=== PATIENT | female | born 1930 | race Caucasian/White ===

== ENCOUNTER 2016-07-06 12:50 | Emergency (ER) | payer MEDICARE, BC ==
[2016-07-06] MEDS ORDERED: ACETAMINOPHEN 325 MG TABLET PO ONE (14:38)
--- NOTE | 2016-07-06 14:42 | RADIOLOGY REPORT (SQ) ---
EXAM DESCRIPTION: CT CERVICAL SPINE WITHOUT COMPLETED DATE/TIME: 07/06/2016 2:22 pm REASON FOR STUDY: fall COMPARISON: 2016 radiographs. TECHNIQUE: Axial images acquired through the cervical spine without intravenous contrast. Images re viewed with lung, soft tissue and bone windows. Reconstructed coronal and sagittal MPR images review ed. Images stored on PACS. All CT scanners at this facility use dose modulation, iterative reconstruction, and/or weight based d osing when appropriate to reduce radiation dose to as low as reasonably achievable (ALARA). [facility]: Dose Right [facility]: CareDose [facility]: Dose Right [facility]: Teradose 4D [facility]: [employer] RADIATION DOSE: 18.22 mGy. LIMITATIONS: None. FINDINGS: ALIGNMENT: Minimal anterolisthesis at C4-5 and C5-6. This looks degenerative in etiology, related to significant facet disease at these levels. MINERALIZATION: Osteopenic. VERTEBRAL BODIES: No fractures or dislocation. DISCS: Pronounced disc space narrowing with disc osteophyte complex that C6-7. FACETS, LATERAL MASSES, POSTERIOR ELEMENTS: Facet arthropathy, including ankylosis and degenerative f acet overgrowth on the left at C4-5. HARDWARE: None in the spine. VISUALIZED RIBS: No fractures. LUNG APICES AND SOFT TISSUES: No significant or acute findings. OTHER: No other significant finding. IMPRESSION: 1. Cervical spondylosis. Osteopenic. No fracture evident. TECHNICAL DOCUMENTATION: JOB ID: [id number] Quality ID # [id number]: Final reports with documentation of one or more dose reduction techniques (e.g., Au tomated exposure control, adjustment of the mA and/or kV according to patient size, use of iterative reconstruction technique) 2010 [employer]- All Rights Reserved
--- NOTE | 2016-07-06 14:45 | RADIOLOGY REPORT (SQ) ---
EXAM DESCRIPTION: CT HEAD WITHOUT COMPLETED DATE/TIME: 07/06/2016 2:22 pm REASON FOR STUDY: fall, hematoma COMPARISON: CT brain 11/02/2009 TECHNIQUE: Axial images acquired through the brain without intravenous contrast. Images reviewed wi th bone, brain and subdural windows. Images stored on PACS. All CT scanners at this facility use dose modulation, iterative reconstruction, and/or weight based d osing when appropriate to reduce radiation dose to as low as reasonably achievable (ALARA). [facility]: Dose Right [facility]: CareDose [facility]: Dose Right [facility]: Teradose 4D [facility]: [employer] RADIATION DOSE: 64.61 mGy. LIMITATIONS: None. FINDINGS: VENTRICLES: Normal size and contour. CEREBRUM: Age-appropriate bifrontal and biparietal small vessel ischemic change, chronic. No CT evid ence of acute large territory ischemic change, acute intracranial hemorrhage, mass effect, or midline shift. CEREBELLUM: No masses. No hemorrhage. No alteration of density. No evidence for acute infarction. EXTRAAXIAL SPACES: No fluid collections. No masses. ORBITS AND GLOBE: No intra- or extraconal masses. Normal contour of globe without masses. CALVARIUM: No fracture. PARANASAL SINUSES: No fluid or mucosal thickening. SOFT TISSUES: Left frontal scalp hematoma without underlying skull fracture or acute intracranial hem orrhage OTHER: No other significant finding. IMPRESSION: Left frontal scalp hematoma without underlying skull fracture. No acute intracranial changes TECHNICAL DOCUMENTATION: JOB ID: [id number] Quality ID # [id number]: Final reports with documentation of one or more dose reduction techniques (e.g., Au tomated exposure control, adjustment of the mA and/or kV according to patient size, use of iterative reconstruction technique) 2010 [employer]- All Rights Reserved
--- NOTE | 2016-07-06 14:47 | RADIOLOGY REPORT (SQ) ---
EXAM DESCRIPTION: SHOULDER LEFT 2 OR MORE VIEWS COMPLETED DATE/TIME: 07/06/2016 2:28 pm REASON FOR STUDY: fall COMPARISON: None. NUMBER OF VIEWS: Three views. TECHNIQUE: Internal rotation, external rotation, and Y view images acquired of the left shoulder. LIMITATIONS: None. FINDINGS: MINERALIZATION: Normal. BONES: Comminuted impacted fracture of humeral head. Displacement of the greater tuberosity. JOINTS: No dislocation. VISUALIZED LUNGS AND RIBS: No pneumothorax. No rib fracture. SOFT TISSUES: No radiopaque foreign body. OTHER: No other significant finding. IMPRESSION: COMMINUTED IMPACTED FRACTURE OF THE HUMERAL HEAD. TECHNICAL DOCUMENTATION: JOB ID: [id number] [employer]- All Rights Reserved
[2016-07-06] MEDS ORDERED: MORPHINE SULFATE 10 MG/ML INJ IV ONE ×2 (15:12→18:14)
--- NOTE | 2016-07-06 16:34 | ER Document Report ---
ED Fall - General Chief Complaint: Fall Stated Complaint: FALL LEFT SHOULDER PAIN Time Seen by Provider: 07/06/16 13:34 Notes: Patient is an 86-year-old female presents emergency department via EMS [place]. Patient states that she was walking when she flipped and fell hitting her left part of her head and her eyebrow and her left shoulder. Patient states that her most severe pain is in her left shoulder. Patient is on a daily baby aspirin but no other blood thinners. Was at home by herself TRAVEL OUTSIDE OF THE [place] IN LAST 30 DAYS: No - Related data Allergies/Adverse Reactions: lisinopril [Lisinopril] Allergy (Verified 07/06/16 16:01) naproxen sodium [From Aleve] Adverse Reaction (Verified 07/06/16 16:01) Chest pain Past Medical History - Social History Smoking Status: Never Smoker Chew tobacco use (# tins/day): No Frequency of alcohol use: None Family History: Reviewed & Not Pertinent - Past Medical History Cardiac Medical History: Reports: Hx Hypertension Pulmonary Medical History: Reports: Hx Asthma Endocrine Medical History: Reports: Hx Diabetes Mellitus Type 2 - Immunizations Hx Diphtheria, Pertussis, Tetanus Vaccination: - unk Review of Systems - Review of Systems Constitutional: No symptoms reported Cardiovascular: No symptoms reported Respiratory: No symptoms reported Musculoskeletal: See HPI Neurological/Psychological: See HPI Physical Exam - Vital signs Vitals: Temp Pulse Resp BP Pulse Ox 98.2 F 80 20 168/89 H 100 07/06/16 13:59 07/06/16 13:59 07/06/16 13:59 07/06/16 13:59 07/06/16 13:59 - Notes Notes: PHYSICAL EXAM GENERAL: Alert, interacts well. HEAD: Normocephalic, patient with a hematoma over her left eyebrow. No palpable deformities, step-offs. Not tender to palpation. No evidence of raccoon eyes or periorbital ecchymosis, swelling EYES: Pupils equal, round, and reactive to light. Extraocular movements intact. ENT: Oral mucosa moist, tongue midline. NECK: Full range of motion. Supple. Trachea midline. LUNGS: Clear to auscultation bilaterally, no wheezes, rales, or rhonchi. No respiratory distress. HEART: Regular rate and rhythm. No murmurs, gallops, or rubs. ABDOMEN: Soft, nondistended, nontender. No guarding, rebound, or rigidity.. Bowel sounds present in all 4 quadrants. EXTREMITIES: Moves all 4 extremities spontaneously. No edema, radial and dorsalis pedis pulses 2/4 bilaterally. No cyanosis. NEUROLOGICAL: Alert and oriented x4. Normal speech. PSYCH: Normal affect, normal mood. SKIN: Warm, dry, normal turgor. No rashes or lesions noted. Course - Re-evaluation Re-evalutation: 07/06/16 18:57 Patient is an 86-year-old female who is hemodynamic stable, no acute distress and afebrile. No evidence of hemorrhage or injury noted on CT of the head or neck. Patient does have a left humeral head comminuted fracture. Patient placed in shoulder immobilizer. Discussed with her follow-up was indicated for orthopedics. Patient expresses understanding. Is going home with her son - Vital Signs Vital signs: Temp Pulse Resp BP Pulse Ox 98.5 F 71 18 159/64 H 96 07/06/16 18:40 07/06/16 18:40 07/06/16 18:40 07/06/16 18:40 07/06/16 18:40 - Diagnostic Test Radiology reviewed: Image reviewed, Reports reviewed Discharge - Discharge Clinical Impression: Fall, Closed head injury, Comminuted left humeral fracture Condition: Good Disposition: HOME, SELF-CARE Instructions: Fracture Proximal Humerus, Use of Iung-Rhq-Gztawmb Ibuprofen ([facility] ) Prescriptions: Oxycodone HCl/Acetaminophen [Percocet 5-325 mg Tablet] 1 tab PO Q6HP PRN #25 tablet PRN Reason: Referrals: AURELIA CASAREZ MD [Primary Care Provider] - Follow up tomorrow DAVID JUAREZ MD [ACTIVE STAFF] - Follow up tomorrow
[2016-07-06 18:41] VITALS: BP 159/64
== END 2016-07-06 18:42 | disposition home or self-care (01) ==
LOC: ER 12:50
DX: S42.292A Other displaced fracture of upper end of left humerus, initial encounter for closed fracture (principal); S00.12XA Contusion of left eyelid and periocular area, initial encounter; W01.0XXA Fall on same level from slipping, tripping and stumbling without subsequent striking against object, initial encounter; Y92.59 Other trade areas as the place of occurrence of the external cause; M25.512 Pain in left shoulder; I10 Essential (primary) hypertension; J45.909 Unspecified asthma, uncomplicated; E11.9 Type 2 diabetes mellitus without complications; Z88.8 Allergy status to other drugs, medicaments and biological substances; Z79.82 Long term (current) use of aspirin
CPT/HCPCS: 96376; 99284; 96374; 73030; 70450; 72125; L3650; A9270; J2270

== ENCOUNTER 2016-08-08 19:00 | Emergency (ER) | payer MEDICARE, BC ==
[2016-08-08] MEDS ORDERED: MORPHINE SULFATE 10 MG/ML INJ IV ONE ×2 (19:18→21:50)
--- NOTE | 2016-08-08 19:19 | ER Document Report ---
ED Medical Screen (RME) - General Chief Complaint: Fall Stated Complaint: FALL HIP PAIN Time Seen by Provider: 08/08/16 19:18 Mode of Arrival: Stretcher Information source: Patient TRAVEL OUTSIDE OF THE [place] IN LAST 30 DAYS: No - HPI Patient complains to provider of: Fall at home, left hip pain Onset: Just prior to arrival Onset/Duration: Sudden Quality of pain: Achy Severity: Severe Pain Level: 4 Notes: 08/08/16 19:19 Patient is an 86-year-old female who was brought to the emergency room by EMS after trip and fall at home causing pain to her left hip, she already has a fracture in her left upper extremity, and bruising to her left face from a fall that she sustained a few days ago, she is wearing a sling on the left upper extremity, the left lower extremity is externally rotated and shortened, she was unable to stand up after the fall 08/08/16 19:20 Patient is being followed by Dr. Farris, orthopedics for her upper extremity injury, and feels Lowell Sanz MD for primary care - Related Data Allergies/Adverse Reactions: lisinopril [Lisinopril] Allergy (Verified 07/06/16 16:01) naproxen sodium [From Aleve] Adverse Reaction (Verified 07/06/16 16:01) Chest pain Past Medical History - Social History Chew tobacco use (# tins/day): No Frequency of alcohol use: None Drug Abuse: None - Past Medical History Cardiac Medical History: Reports: Hx Hypertension Pulmonary Medical History: Reports: Hx Asthma Endocrine Medical History: Reports: Hx Diabetes Mellitus Type 2 - Immunizations Hx Diphtheria, Pertussis, Tetanus Vaccination: - unk Physical Exam - Vital signs Vitals: Temp Pulse Resp BP Pulse Ox 99.0 F 83 17 176/61 H 94 08/08/16 19:04 08/08/16 19:04 08/08/16 19:04 08/08/16 19:04 08/08/16 19:04 Course - Vital Signs Vital signs: Temp Pulse Resp BP Pulse Ox 99.0 F 83 17 176/61 H 94 08/08/16 19:04 08/08/16 19:04 08/08/16 19:04 08/08/16 19:04 08/08/16 19:04
[2016-08-08] MEDS ORDERED: ONDANSETRON HCL INJ/PF 4 MG/2 ML SDV IV ONE (19:29)
--- NOTE | 2016-08-08 19:31 | ER Document Report ---
ED Fall - General Chief Complaint: Fall Stated Complaint: FALL HIP PAIN Time Seen by Provider: 08/08/16 19:19 Mode of Arrival: Stretcher Information source: Patient Notes: Patient is an 86-year-old female that comes emergency department for chief complaint of fall, she states that she grabbed onto a chair which moved causing her to fall forward and landed on her left hip and side. She denies head injury , she denies loss of consciousness, she denies other locations of pain other than her left hip and also in her left arm where she had a recent humeral head fracture and is currently wearing a sling. She denies blood thinners other than baby aspirin daily, she denies focal numbness or weakness, incontinence, chest pain, abdominal pain, back pain. She sees Dr. Koenig for orthopedic follow -up in [place]. H asthma and DM II. TRAVEL OUTSIDE OF THE [place] IN LAST 30 DAYS: No - Related data Allergies/Adverse Reactions: ciprofloxacin [From Cipro] Allergy (Verified 08/08/16 21:23) lisinopril [Lisinopril] Allergy (Verified 07/06/16 16:01) naproxen [From Aleve] Allergy (Verified 08/08/16 21:23) Sulfa (Sulfonamide Antibiotics) Allergy (Verified 08/08/16 21:23) naproxen sodium [From Aleve] Adverse Reaction (Verified 07/06/16 16:01) Chest pain Home Medications: Current Home Medications Cranberry [Cranberry 1000 mg Capsule] 1,000 mg PO DAILY 08/08/16 [History] Losartan Potassium 50 mg PO DAILY 08/08/16 [History] Metoprolol Succinate [Toprol Xl] 100 mg PO DAILY 08/08/16 [History] Past Medical History - General Information source: Patient - Social History Smoking Status: Never Smoker Chew tobacco use (# tins/day): No Frequency of alcohol use: None Drug Abuse: None Lives with: Alone Family History: Reviewed & Not Pertinent - Past Medical History Cardiac Medical History: Reports: Hx Hypertension Pulmonary Medical History: Reports: Hx Asthma Endocrine Medical History: Reports: Hx Diabetes Mellitus Type 2 - Immunizations Hx Diphtheria, Pertussis, Tetanus Vaccination: Yes - unk Review of Systems - Review of Systems Constitutional: No symptoms reported EENT: No symptoms reported Cardiovascular: No symptoms reported Respiratory: No symptoms reported Gastrointestinal: No symptoms reported Genitourinary: No symptoms reported Female Genitourinary: No symptoms reported Musculoskeletal: See HPI Skin: See HPI Hematologic/Lymphatic: No symptoms reported Neurological/Psychological: No symptoms reported Physical Exam - Vital signs Vitals: Temp Pulse Resp BP Pulse Ox 99.0 F 83 17 176/61 H 94 08/08/16 19:04 08/08/16 19:04 08/08/16 19:04 08/08/16 19:04 08/08/16 19:04 Interpretation: Normal - General General appearance: Anxious In distress: Mild - patient appears to be in some pain, but she is alert and responsive - HEENT Head: Normocephalic, Atraumatic Eyes: Normal Pupils: PERRL - Respiratory Respiratory status: No respiratory distress Chest status: Nontender Breath sounds: Normal. No: Decreased air movement, Wheezing Chest palpation: Normal - Cardiovascular Rhythm: Regular. No: Tachycardia Heart sounds: Normal auscultation, S1 appreciated, S2 appreciated Murmur: No - Abdominal Inspection: Normal. No: Wounds Distension: No distension Bowel sounds: Normal Tenderness: Nontender. No: Tender, Guarding Organomegaly: No organomegaly - Back Back: Normal, Nontender. No: Tender, Vertebra tenderness - Extremities General upper extremity: Normal inspection, Nontender, Normal ROM, Normal strength General lower extremity: Other - Leg externally rotated. Painful left groin and femoral area. Knee exam, ankle exam, and foot exam are unremarkable. Normal distal neurovascular exam. 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 No evidence of head injury, no contusions or evidence of trauma otherwise. Patient is alert and well-appearing otherwise. X-ray confirms comminuted fracture of the left intertrochanteric region of the left femur. Patient given pain medicine, performing preop workup. Discovered that we have no orthopedic adapted physical education aide until 08/12/2016. Discussed with family and patient, they state they would prefer to be transferred to [facility] because of family there. Mild leukocytosis, no fever, tachycardia or hypotension. Chemistry generally unremarkable. Urine shows positive nitrites and a few white blood cells. Patient denying flank or abdominal pain, denying dysuria. Chest x-ray and EKG showed no acute abnormalities. Patient given a dose of Rocephin, urine culture placed. Discussed with Dr. Bergeron. 08/09/16 23:20 Dr. Sherman, orthopedic surgery, he states that they will accept the patient. 08/09/16 04:57 Patient complaining of pain again, vital signs unremarkable, giving morphine. Bed accepted, still pending transport. - Vital Signs Vital signs: Temp Pulse Resp BP Pulse Ox 98.7 F 83 15 130/51 H 90 L 08/09/16 02:23 08/08/16 19:04 08/09/16 02:01 08/09/16 02:01 08/09/16 02:01 - Laboratory Result Diagrams: 08/08/16 21:56 08/08/16 21:56 Laboratory results interpreted by me: 08/08/16 08/08/16 08/08/16 21:56 21:56 21:56 WBC 11.4 H MCV 99 H Absolute Neutrophils 8.6 H Sodium 135.9 L Glucose 180 H AST 46 H Alkaline Phosphatase 159 H Albumin 3.3 L Urine Nitrite POSITIVE H Ur Leukocyte Esterase TRACE H Urine Ascorbic Acid 40 H Discharge - Discharge Clinical Impression: Intertrochanteric fracture Qualifiers: Encounter type: initial encounter Fracture type: closed Fracture alignment: displaced Laterality: left Qualified Code(s): S72.142A - Displaced intertrochanteric fracture of left femur, initial encounter for closed fracture Urinary tract infection Qualifiers: Urinary tract infection type: site unspecified Hematuria presence: without hematuria Qualified Code(s): N39.0 - Urinary tract infection, site not specified Fall Qualifiers: Encounter type: initial encounter Qualified Code(s): W19.XXXA - Unspecified fall, initial encounter Condition: Stable Disposition: [facility]
--- NOTE | 2016-08-08 20:51 | RADIOLOGY REPORT (SQ) ---
EXAM DESCRIPTION: HIP LEFT AP/LATERAL COMPLETED DATE/TIME: 08/08/2016 7:46 pm REASON FOR STUDY: fall COMPARISON: None. NUMBER OF VIEWS: Two views. TECHNIQUE: AP pelvis and additional frog-leg view of the left hip. LIMITATIONS: None. FINDINGS: MINERALIZATION: Osteopenia. LEFT HIP: Comminuted fracture intertrochanteric fracture of the left femur. Small fragment of the gr eater trochanter noted adjacent to the femoral shaft. There is superior slight medial displacement o f the femoral shaft relation to the femoral head. No other fractures are identified. RIGHT HIP: No fracture or dislocation. No worrisome bone lesions. PUBIS AND ISCHIUM: No fracture. PELVIS: No fracture. SACRUM: No fracture or dislocation. No worrisome bone lesions. LOWER LUMBAR SPINE: No fracture or dislocation. No worrisome bone lesions. Spondylosis. SOFT TISSUES: Extensive vascular calcifications noted throughout the pelvis and lower extremities. OTHER: No other significant finding. IMPRESSION: Comminuted intratrochanteric fracture of the left femur with superior and medial displac ement of the femoral shaft relation to the femoral head. A small fragment of the greater trochanter is noted adjacent to the the shaft. TECHNICAL DOCUMENTATION: JOB ID: [id number] [employer]- All Rights Reserved
--- NOTE | 2016-08-08 20:54 | RADIOLOGY REPORT (SQ) ---
EXAM DESCRIPTION: CHEST SINGLE VIEW COMPLETED DATE/TIME: 08/08/2016 7:46 pm REASON FOR STUDY: FALL COMPARISON: None. EXAM PARAMETERS: NUMBER OF VIEWS: One view. TECHNIQUE: Single frontal radiographic view of the chest acquired. RADIATION DOSE: NA LIMITATIONS: None. FINDINGS: LUNGS AND PLEURA: No opacities, masses or pneumothorax. No pleural effusion. MEDIASTINUM AND HILAR STRUCTURES: No masses. Contour normal. Arch calcifications. HEART AND VASCULAR STRUCTURES: Heart borderline enlarged. Normal vasculature. BONES: Mild scoliosis of the thoracic spine. There appears to be at comminuted fracture involving th e left humeral head of appears to have been present on 07/06/2016. HARDWARE: None in the chest. OTHER: No other significant finding. IMPRESSION: Comminuted fracture of the left humeral at was present on prior study from 07/06/2016. N o other acute osseous abnormality identified. No acute cardiopulmonary disease. Cardiac size is bor derline enlarged. TECHNICAL DOCUMENTATION: JOB ID: [id number]
[2016-08-08 22:06] LABS: ABSOLUTE BASOPHILS # (AUTO) 0.1 10^3/uL (0.0-0.2); ABSOLUTE EOSINOPHILS # (AUTO) 0.2 10^3/uL (0.0-0.6); ABSOLUTE LYMPHOCYTES (AUTO) 1.7 10^3/uL (0.5-4.7); ABSOLUTE MONOCYTES (AUTO) 0.9 10^3/uL (0.1-1.4); ABSOLUTE NEUT (AUTO) 8.6 10^3/uL (1.7-8.2); BASOPHILS % (AUTO) 0.8 % (0-2); EOSINOPHILS % (AUTO) 1.4 % (0-6); HEMATOCRIT 39.5 % (36.0-47.0); HEMOGLOBIN 12.9 g/dL (12.0-15.5); HGB HCT DIFFERENCE -0.8; LYMPHOCYTES % (AUTO) 14.5 % (13-45); MEAN CORPUSCULAR HEMOGLOBIN 32.5 pg (27.0-33.4); MEAN CORPUSCULAR HGB CONC 32.8 g/dL (32.0-36.0); MEAN CORPUSCULAR VOLUME 99 fl (80-97); MONOCYTES % (AUTO) 7.9 % (3-13); RED BLOOD COUNT 3.99 10^6/uL (3.72-5.28); RED CELL DISTRIBUTION WIDTH 13.3 % (11.5-14.0); SEGMENTED NEUTROPHILS % (AUTO) 75.4 % (42-78); WHITE BLOOD COUNT 11.4 10^3/uL (4.0-10.5)
[2016-08-08 22:12] LABS: AMORPHOUS SEDIMENT,URINE TRACE /HPF; APPEARANCE,URINE CLOUDY; BILIRUBIN,URINE NEGATIVE (NEGATIVE); GLUCOSE, URINE NEGATIVE (NEGATIVE); KETONES,URINE NEGATIVE (NEGATIVE); LEUKOCYTE ESTERASE,URINE TRACE (NEGATIVE); NITRITE,URINE POSITIVE (NEGATIVE); PROTEIN,URINE NEGATIVE (NEGATIVE); URINE SPECIFIC GRAVITY 1.013; UROBILINOGEN,URINE NEGATIVE mg/dL (<2.0)
[2016-08-08 22:13] LABS: PARTIAL THROMBOPLASTIN TIME 30.9 SEC (23.5-35.8)
[2016-08-08 22:27] LABS: ALANINE AMINOTRANSFERASE 52 U/L (9-52); ALBUMIN 3.3 g/dL (3.5-5.0); ALKALINE PHOSPHATASE 159 U/L (38-126); ANION GAP 10 (5-19); ASPARTATE AMINO TRANSFERASE 46 U/L (14-36); BILIRUBIN,DIRECT 0.3 mg/dL (0.0-0.4); BILIRUBIN,TOTAL 0.5 mg/dL (0.2-1.3); BLOOD UREA NITROGEN 16 mg/dL (7-20); CALCIUM 9.1 mg/dL (8.4-10.2); CARBON DIOXIDE 26 mmol/L (22-30); CHLORIDE 100 mmol/L (98-107); CREATININE RESULT 0.54 mg/dL (0.52-1.25); GLUCOSE 180 mg/dL (75-110); POTASSIUM 4.5 mmol/L (3.6-5.0); SODIUM 135.9 mmol/L (137-145); TOTAL PROTEIN 6.5 g/dL (6.3-8.2)
[2016-08-08] MEDS ORDERED: CEFTRIAXONE 1 GM/D5W RTU 50 ML IV ONE (23:44)
[2016-08-08] MEDS ORDERED: METFORMIN HCL 500 MG TABLET PO ONE (23:58)
[2016-08-09] MEDS ORDERED: ONDANSETRON HCL INJ/PF 4 MG/2 ML SDV IV ONE (04:48)
[2016-08-09] MEDS ORDERED: MORPHINE SULFATE 10 MG/ML INJ IV ONE (04:48)
[2016-08-09 08:27] VITALS: BP 102/83
--- NOTE | 2016-08-09 10:27 | EKG REPORT ---
SEVERITY:- ABNORMAL ECG - SINUS RHYTHM FIRST DEGREE AV BLOCK LEFT ANTERIOR FASCICULAR BLOCK OLD ANTEROSPETAL [place] : Confirmed by: Daniel Dewitt MD 09-Aug-2016 10:27:03
== END 2016-08-09 08:05 | disposition short-term general hospital (02) ==
LOC: ER 19:00
DX: S72.142A Displaced intertrochanteric fracture of left femur, initial encounter for closed fracture (principal); N39.0 Urinary tract infection, site not specified; W01.0XXA Fall on same level from slipping, tripping and stumbling without subsequent striking against object, initial encounter; Y92.009 Unspecified place in unspecified non-institutional (private) residence as the place of occurrence of the external cause; E11.9 Type 2 diabetes mellitus without complications; I10 Essential (primary) hypertension; Z88.2 Allergy status to sulfonamides; Z88.3 Allergy status to other anti-infective agents
CPT/HCPCS: 93005; 96376; 99285; 51702; 96375; 96365; 36415; 87086; 85025; 85610; 85730; 87088; 80053; 81001; 87186; 71010; 73502; 93010; J2270 ×2; J2405 ×2; A9270; J0696

== ENCOUNTER → 2017-09-07 | Outpatient (CLI) | payer MEDICARE, BC ==
[2017-09-07 08:52] LABS: ABSOLUTE BASOPHILS # (AUTO) 0.1 10^3/uL (0.0-0.2); ABSOLUTE EOSINOPHILS # (AUTO) 0.4 10^3/uL (0.0-0.6); ABSOLUTE LYMPHOCYTES (AUTO) 2.1 10^3/uL (0.5-4.7); ABSOLUTE NEUT (AUTO) 4.4 10^3/uL (1.7-8.2); BASOPHILS % (AUTO) 1.3 % (0-2); EOSINOPHILS % (AUTO) 4.9 % (0-6); HEMATOCRIT 41.5 % (36.0-47.0); LYMPHOCYTES % (AUTO) 26.1 % (13-45); MEAN CORPUSCULAR HEMOGLOBIN 31.9 pg (27.0-33.4); MEAN CORPUSCULAR HGB CONC 33.8 g/dL (32.0-36.0); MEAN CORPUSCULAR VOLUME 94 fl (80-97); MONOCYTES % (AUTO) 12.2 % (3-13); PLATELET COUNT 257 10^3/uL (150-450); RED CELL DISTRIBUTION WIDTH 14.3 % (11.5-14.0); SEGMENTED NEUTROPHILS % (AUTO) 55.5 % (42-78); TOTAL CELLS COUNTED % (AUTO) 100 %; WHITE BLOOD COUNT 7.9 10^3/uL (4.0-10.5)
[2017-09-07 09:23] LABS: ALANINE AMINOTRANSFERASE 36 U/L (9-52); ALBUMIN 3.4 g/dL (3.5-5.0); ALKALINE PHOSPHATASE 166 U/L (38-126); ANION GAP 13 (5-19); ASPARTATE AMINO TRANSFERASE 58 U/L (14-36); BILIRUBIN,DIRECT 0.4 mg/dL (0.0-0.4); BILIRUBIN,TOTAL 0.8 mg/dL (0.2-1.3); BLOOD UREA NITROGEN 16 mg/dL (7-20); CALCIUM 9.4 mg/dL (8.4-10.2); CARBON DIOXIDE 30 mmol/L (22-30); CHLORIDE 96 mmol/L (98-107); GLUCOSE 145 mg/dL (75-110); POTASSIUM 3.9 mmol/L (3.6-5.0); SODIUM 138.7 mmol/L (137-145); TOTAL PROTEIN 7.5 g/dL (6.3-8.2); TRIGLYCERIDES 100 mg/dL (<150)
[2017-09-07 09:33] LABS: DIRECT LDL 67 mg/dL (<100)
== END ==
LOC: LCAL 07:45
PROVIDERS: ATTEND Internal Medicine
DX: E11.9 Type 2 diabetes mellitus without complications (principal); I10 Essential (primary) hypertension; E78.5 Hyperlipidemia, unspecified; R53.83 Other fatigue
CPT/HCPCS: 36415; 80053; 80061; 83036; 83735; 84443; 85025

== ENCOUNTER 2018-02-17 12:25 | Inpatient (IN) | payer MEDICARE, BC ==
--- NOTE | 2018-02-17 12:50 | ER Document Report ---
Addendum entered and electronically signed by DAVID ANDERSON PA-C 02/17/18 13:50: Discharge - Discharge Clinical Impression: Acute UTI (urinary tract infection) Condition: Stable Disposition: ADMITTED INPATIENT Referrals: AURELIA CASAREZ MD [Primary Care Provider] - Follow up as needed Original Note: ED General - General Chief Complaint: Fever Stated Complaint: DIARRHEA Time Seen by Provider: 02/17/18 12:32 TRAVEL OUTSIDE OF THE [place] IN LAST 30 DAYS: No - HPI Notes: Patient is an 87-year-old female with a history of hypertension, chronic cough, asthma, type 2 diabetes who presents to the emergency department by EMS from the [facility] for report of fever and diarrhea. Pt had a reported 104 temp from her facility and was given tylenol 650mg. She has been afebrile thereafter. Patient states that she has not felt febrile and states that she has been having soft stool but no watery diarrhea. Patient states that her urinary behavior bothers her the most she has been going more often with some burning associated. Patient states that she does continue to have a chronic cough that remains relatively unchanged. She has been eating and drinking without difficulty. She does not have any other associated pains or discomfort. Denies any headache, fever, neck pain, changes in vision/speech/mentation/hearing, URI, sore throat, chest pain, palpitations, syncope, shortness of breath, wheeze, dyspnea, abdominal pain, nausea/vomiting, urinary retention, back pain, or rash. - Related Data Allergies/Adverse Reactions: ciprofloxacin [From Cipro] Allergy (Verified 08/08/16 21:23) lisinopril [Lisinopril] Allergy (Verified 07/06/16 16:01) naproxen [From Aleve] Allergy (Verified 08/08/16 21:23) Sulfa (Sulfonamide Antibiotics) Allergy (Verified 08/08/16 21:23) naproxen sodium [From Aleve] Adverse Reaction (Verified 07/06/16 16:01) Chest pain Past Medical History - Social History Smoking Status: Unknown if Ever Smoked Family History: Reviewed & Not Pertinent Patient has suicidal ideation: No Patient has homicidal ideation: No - Past Medical History Cardiac Medical History: Reports: Hx Hypercholesterolemia, Hx Hypertension Pulmonary Medical History: Reports: Hx Asthma Endocrine Medical History: Reports: Hx Diabetes Mellitus Type 2 Renal/ Medical History: Denies: Hx Peritoneal Dialysis GI Medical History: Reports: Hx Gastroesophageal Reflux Disease Musculoskeletal Medical History: Reports Hx Arthritis - OA - Immunizations Hx Diphtheria, Pertussis, Tetanus Vaccination: Yes - unk Review of Systems - Review of Systems -: Yes All other systems reviewed and negative Physical Exam - Vital signs Vitals: Pulse Resp Pulse Ox 93 20 98 02/17/18 12:32 02/17/18 12:32 02/17/18 12:32 - Notes Notes: PHYSICAL EXAMINATION: GENERAL: Well-appearing, well-nourished and in no acute distress. A&Ox4. Answers questions appropriately. HEAD: Atraumatic, normocephalic. Non-tender. EYES: Pupils equal round and reactive to light, extraocular movements intact, sclera anicteric, conjunctiva are normal. ENT: Nares patent and without discharge. oropharynx clear without exudates. No tonsilar hypertrophy or erythema. Moist mucous membranes. NECK: Normal range of motion, supple without lymphadenopathy. No rigidity/meningismus. No midline tenderness. LUNGS: Some diminishment b/l base. No wheezes rales or rhonchi. No retractions. HEART: Regular rate and rhythm without murmurs, rubs, gallops. ABDOMEN: Soft, nontender, nondistended abdomen. No guarding, no rebound. Normal bowel sounds present. No CVA tenderness bilaterally. Musculoskeletal: Ext's b/l: FROM to passive/active. Strength 5+/5. No deficits noted. No bony tenderness of extremities. Extremities: No cyanosis, clubbing, or edema b/l. Peripheral pulses 2+. Capillary refill less than 2 seconds. NEUROLOGICAL: NIH 0. GCS 15. Cranial nerves grossly intact. Normal speech. Normal sensory, motor exams. Reflexes 2+ b/l. MARLENE's negative. Pronator drift negative. PSYCH: Normal mood, normal affect. SKIN: Warm, Dry, normal turgor, no rashes or lesions noted. Course - Re-evaluation Re-evalutation: 02/17/18 13:44 Patient is currently an afebrile, well-hydrated, 87-year-old female who presents to the emergency department with a UTI with an elevated lactic acid at 3.5 and leukocytosis at 11.1. Vitals are currently acceptable without any significant tachycardia, tachypnea, or hypoxia. PE is otherwise unremarkable and is alert and oriented. Patient is able to tolerate p.o. without difficulty at this time. See lab results. Patient was given a liter bolus as well as Rocephin IV. Call was placed our hospitalist, Dr. Griffin, who accepted patient for admission to the medical floor. Patient is a DNR. Patient is in agreement with plan. - Vital Signs Vital signs: Temp Pulse Resp BP Pulse Ox 93 20 98 02/17/18 12:32 02/17/18 12:32 02/17/18 12:32 - Laboratory Result Diagrams: 02/17/18 12:35 02/17/18 12:35 Laboratory results interpreted by me: 02/17/18 02/17/18 02/17/18 12:35 12:35 13:10 WBC 11.1 H RDW 15.0 H Lymphocytes % 7.1 L Monocytes % 17.9 H Absolute Monocytes 2.0 H Sodium 132.1 L Chloride 97 L Glucose 223 H Lactic Acid Total Bilirubin 1.6 H AST 81 H Alkaline Phosphatase 188 H Albumin 3.4 L Ur Leukocyte Esterase TRACE H Urine Ascorbic Acid 40 H 02/17/18 13:14 WBC RDW Lymphocytes % Monocytes % Absolute Monocytes Sodium Chloride Glucose Lactic Acid 3.5 H Total Bilirubin AST Alkaline Phosphatase Albumin Ur Leukocyte Esterase Urine Ascorbic Acid Critical Care Note - Critical Care Note Total time excluding time spent on procedures (mins): 35 Discharge - Discharge Clinical Impression: Acute UTI (urinary tract infection) Sepsis Qualifiers: Sepsis type: sepsis due to unspecified organism Qualified Code(s): A41.9 - Sepsis, unspecified organism Condition: Stable Disposition: ADMITTED INPATIENT Admitting Provider: Hospitalist - Dr. Griffin Unit Admitted: Medical Floor Referrals: AURELIA CASAREZ MD [Primary Care Provider] - Follow up as needed
[2018-02-17 13:02] LABS: ABSOLUTE BASOPHILS # (AUTO) 0.1 10^3/uL (0.0-0.2); ABSOLUTE LYMPHOCYTES (AUTO) 0.8 10^3/uL (0.5-4.7); ABSOLUTE NEUT (AUTO) 8.2 10^3/uL (1.7-8.2); BASOPHILS % (AUTO) 0.8 % (0-2); EOSINOPHILS % (AUTO) 0.1 % (0-6); HEMATOCRIT 40.5 % (36.0-47.0); HEMOGLOBIN 13.8 g/dL (12.0-15.5); LYMPHOCYTES % (AUTO) 7.1 % (13-45); MEAN CORPUSCULAR HEMOGLOBIN 32.9 pg (27.0-33.4); MEAN CORPUSCULAR HGB CONC 34.1 g/dL (32.0-36.0); MEAN CORPUSCULAR VOLUME 97 fl (80-97); MONOCYTES % (AUTO) 17.9 % (3-13); PLATELET COUNT 207 10^3/uL (150-450); RED BLOOD COUNT 4.18 10^6/uL (3.72-5.28); SEGMENTED NEUTROPHILS % (AUTO) 74.1 % (42-78); TOTAL CELLS COUNTED % (AUTO) 100 %; WHITE BLOOD COUNT 11.1 10^3/uL (4.0-10.5)
[2018-02-17 13:08] LABS: ALANINE AMINOTRANSFERASE 46 U/L (9-52); ALBUMIN 3.4 g/dL (3.5-5.0); ALKALINE PHOSPHATASE 188 U/L (38-126); ANION GAP 9 (5-19); ASPARTATE AMINO TRANSFERASE 81 U/L (14-36); BILIRUBIN,DIRECT 0.4 mg/dL (0.0-0.4); BILIRUBIN,TOTAL 1.6 mg/dL (0.2-1.3); BLOOD UREA NITROGEN 17 mg/dL (7-20); CALCIUM 9.1 mg/dL (8.4-10.2); CARBON DIOXIDE 26 mmol/L (22-30); CHLORIDE 97 mmol/L (98-107); GLUCOSE 223 mg/dL (75-110); POTASSIUM 4.1 mmol/L (3.6-5.0); SODIUM 132.1 mmol/L (137-145); TOTAL PROTEIN 7.2 g/dL (6.3-8.2)
[2018-02-17] MEDS ORDERED: CEFTRIAXONE 1 GM/D5W RTU 1 GM/50 ML RTUPB IV ONE (13:16)
[2018-02-17] MEDS: NORMAL SALINE 1000 ML 1,000 ML IV PRN ×3 (13:25→18:07)
[2018-02-17 13:32] LABS: APPEARANCE,URINE CLOUDY; BILIRUBIN,URINE NEGATIVE (NEGATIVE); COLOR,URINE AMBER; GLUCOSE, URINE NEGATIVE (NEGATIVE); KETONES,URINE NEGATIVE (NEGATIVE); LEUKOCYTE ESTERASE,URINE TRACE (NEGATIVE); NITRITE,URINE NEGATIVE (NEGATIVE); PROTEIN,URINE NEGATIVE (NEGATIVE); URINE SPECIFIC GRAVITY 1.015; UROBILINOGEN,URINE NEGATIVE mg/dL (<2.0)
--- NOTE | 2018-02-17 13:35 | RADIOLOGY REPORT (SQ) ---
EXAM DESCRIPTION: CHEST SINGLE VIEW COMPLETED DATE/TIME: 02/17/2018 1:20 pm REASON FOR STUDY: fever COMPARISON: 08/08/2016 and earlier EXAM PARAMETERS: NUMBER OF VIEWS: One view. TECHNIQUE: Single frontal radiographic view of the chest acquired. RADIATION DOSE: NA LIMITATIONS: None. FINDINGS: LUNGS AND PLEURA: No opacities, masses or pneumothorax. No pleural effusion. MEDIASTINUM AND HILAR STRUCTURES: No masses. Contour normal. HEART AND VASCULAR STRUCTURES: Heart normal in size. Normal vasculature. BONES: Chronic deformity of the left humeral head. No acute osseous abnormality. HARDWARE: None in the chest. OTHER: No other significant finding. IMPRESSION: NO ACUTE RADIOGRAPHIC FINDING IN THE CHEST. TECHNICAL DOCUMENTATION: JOB ID: [id number]- All Rights Reserved Reading location - IP/workstation name: [email or web address]
[2018-02-17] MEDS ORDERED: ACETAMINOPHEN 325 MG TABLET PO PRN (14:59)
[2018-02-17] MEDS ORDERED: ONDANSETRON HCL INJ/PF 4 MG/2 ML SDV IV PRN (14:59)
[2018-02-17] MEDS ORDERED: TEMAZEPAM 7.5 MG CAPSULE PO PRN (14:59)
[2018-02-17] MEDS ORDERED: IPRATROPIUM/ALBUTEROL 0.5-2.5 MG/3 ML AMPUL NEB PRN (14:59)
[2018-02-17] MEDS ORDERED: GLUCAGON,HUMAN RECOMB 1 MG INJ IM PRN (15:15)
[2018-02-17] MEDS ORDERED: DEXTROSE 40% GEL 15 GM TUBE PO PRN ×2 (15:15)
[2018-02-17] MEDS ORDERED: DEXTROSE 50%-WATER 25 GM/50 ML DISP.SYRIN IV PRN ×2 (15:15)
--- NOTE | 2018-02-17 15:17 | PDOC H&P ---
History of Present Illness Admission Date/PCP: 02/17/18 14:12 AURELIA CASAREZ MD Patient complains of: Fever History of Present Illness: KAYLENE BENDER is a 87 year old female with history of dementia diabetes mellitus hypertension asthma referred from the assisted living with complaints of fever and loose stools. Fever reported as 104 at assisted living she was given Tylenol 650 mg she is afebrile in the emergency room. Patient is unable to give much history. Further information obtained from the ER physician's notes he is no complaints of shortness of breath no wheezing no cough no cold no chills no sweating no abdominal pain no nausea no vomiting no rash. I went to talk to the patient because of think her dementia she is unable to give much information. Past Medical History Cardiac Medical History: Reports: Hyperlipidema, Hypertension Pulmonary Medical History: Reports: Asthma Endocrine Medical History: Reports: Diabetes Mellitus Type 2 GI Medical History: Reports: Gastroesophageal Reflux Disease Musculoskeltal Medical History: Reports: Arthritis - OA Past Surgical History Past Surgical History: Reports: Orthopedic Surgery Social History Lives with: Other - Assisted living Smoking Status: Unknown if Ever Smoked Frequency of Alcohol Use: None Hx Recreational Drug Use: No Hx Prescription Drug Abuse: No - Advance Directive Resuscitation Status: Do Not Resuscitate Family History Family History: Reviewed & Not Pertinent Parental Family History Reviewed: Yes Children Family History Reviewed: Yes Sibling(s) Family History Reviewed.: Yes Medication/Allergy Home Medications: Albuterol 2 puff IH ASDIR PRN 02/09/11 Calcium Citrate/Vitamin D3 [Calcium Citrate With D Tablet] 1 each PO DAILY 02/09/11 Fluvastatin Sodium [Lescol] 40 mg PO QHS 02/09/11 Hydrochlorothiazide [Hydrodiuril 25 mg Tablet] 25 mg PO QAM 02/09/11 Hydrocodone Bit/Acetaminophen [Vicodin 5-500 mg Tablet] 1 tab PO ASDIR PRN #15 tablet 02/09/11 Metformin HCl [Glucophage 500 Mg Tablet] 1,000 mg PO BID 02/09/11 Montelukast Sodium [Singulair 10 Mg Tablet] 10 mg PO QHS 02/09/11 Multivitamins W-Minerals/Lut [Centrum Silver Tablet] 1 each PO DAILY 02/09/11 [place]-3/Dha/Epa/Fish Oil [Fish Oil] 1,000 mg PO DAILY 02/09/11 Oxycodone HCl/Acetaminophen [Percocet 5-325 mg Tablet] 1 tab PO Q6HP PRN #25 tablet 07/06/16 Cranberry [Cranberry 1000 mg Capsule] 1,000 mg PO DAILY 08/08/16 Losartan Potassium 50 mg PO DAILY 08/08/16 Metoprolol Succinate [Toprol Xl] 100 mg PO DAILY 08/08/16 Allergies/Adverse Reactions: ciprofloxacin [From Cipro] Allergy (Verified 08/08/16 21:23) lisinopril [Lisinopril] Allergy (Verified 07/06/16 16:01) naproxen [From Aleve] Allergy (Verified 08/08/16 21:23) Sulfa (Sulfonamide Antibiotics) Allergy (Verified 08/08/16 21:23) naproxen sodium [From Aleve] Adverse Reaction (Verified 07/06/16 16:01) Chest pain Review of Systems Constitutional: PRESENT: fever(s). ABSENT: fatigue, headache(s), night sweats, weakness Eyes: ABSENT: visual disturbances Ears: ABSENT: hearing changes Cardiovascular: ABSENT: chest pain, dyspnea on exertion, edema, orthropnea, palpitations Respiratory: PRESENT: cough Gastrointestinal: PRESENT: diarrhea Neurological: ABSENT: abnormal gait, abnormal speech, confusion, dizziness, focal weakness, syncope Psychiatric: PRESENT: anxiety Physical Exam Vital Signs: Temp Pulse Resp BP Pulse Ox 98.7 F 93 21 H 132/60 H 99 02/17/18 14:00 02/17/18 12:32 02/17/18 14:01 02/17/18 14:01 02/17/18 14:01 Intake & Output 02/16/18 02/17/18 02/18/18 06:59 06:59 06:59 Intake Total 2049 Balance 2049 Weight 68.039 kg General appearance: PRESENT: no acute distress Head exam: PRESENT: atraumatic Eye exam: PRESENT: PERRLA Teeth exam: PRESENT: edentulous Neck exam: ABSENT: carotid bruit, JVD, lymphadenopathy, thyromegaly Respiratory exam: PRESENT: decreased breath sounds, wheezes Cardiovascular exam: PRESENT: tachycardia GI/Abdominal exam: PRESENT: normal bowel sounds, soft. ABSENT: tenderness Extremities exam: PRESENT: full ROM. ABSENT: calf tenderness, clubbing, pedal edema Neurological exam: PRESENT: alert, awake, oriented to person, oriented to place, oriented to time, oriented to situation, CN II-XII grossly intact. ABSENT: motor sensory deficit Psychiatric exam: PRESENT: appropriate affect, normal mood. ABSENT: homicidal ideation, suicidal ideation Results Laboratory Results: 02/17/18 12:35 02/17/18 12:35 02/17/18 02/17/18 02/17/18 12:35 12:35 12:35 WBC 11.1 H RBC 4.18 Hgb 13.8 Hct 40.5 MCV 97 MCH 32.9 MCHC 34.1 RDW 15.0 H Plt Count 207 Seg Neutrophils % 74.1 Lymphocytes % 7.1 L Monocytes % 17.9 H Eosinophils % 0.1 Basophils % 0.8 Absolute Neutrophils 8.2 Absolute Lymphocytes 0.8 Absolute Monocytes 2.0 H Absolute Eosinophils 0.0 Absolute Basophils 0.1 Sodium 132.1 L Potassium 4.1 Chloride 97 L Carbon Dioxide 26 Anion Gap 9 BUN 17 Creatinine 0.75 Est GFR ( Amer) > 60 Est GFR (Non-Af Amer) > 60 Glucose 223 H Lactic Acid Cancelled Calcium 9.1 Total Bilirubin 1.6 H AST 81 H ALT 46 Alkaline Phosphatase 188 H Total Protein 7.2 Albumin 3.4 L Lipase 152.0 Urine Color Urine Appearance Urine pH Ur Specific [place] Urine Protein Urine Glucose (UA) Urine Ketones Urine Blood Urine Nitrite Ur Leukocyte Esterase Urine WBC (Auto) Urine RBC (Auto) 02/17/18 02/17/18 13:10 13:14 WBC RBC Hgb Hct MCV MCH MCHC RDW Plt Count Seg Neutrophils % Lymphocytes % Monocytes % Eosinophils % Basophils % Absolute Neutrophils Absolute Lymphocytes Absolute Monocytes Absolute Eosinophils Absolute Basophils Sodium Potassium Chloride Carbon Dioxide Anion Gap BUN Creatinine Est GFR ( Amer) Est GFR (Non-Af Amer) Glucose Lactic Acid 3.5 H Calcium Total Bilirubin AST ALT Alkaline Phosphatase Total Protein Albumin Lipase Urine Color MICHELLE Urine Appearance CLOUDY Urine pH 6.0 Ur Specific [place] 1.015 Urine Protein NEGATIVE Urine Glucose (UA) NEGATIVE Urine Ketones NEGATIVE Urine Blood NEGATIVE Urine Nitrite NEGATIVE Ur Leukocyte Esterase TRACE H Urine WBC (Auto) 21 Urine RBC (Auto) 1 Impressions: Chest X-Ray 02/17/18 12:44 IMPRESSION: NO ACUTE RADIOGRAPHIC FINDING IN THE CHEST. Assessment & Plan - Diagnosis (1) Acute UTI (urinary tract infection) Is this a current diagnosis for this admission?: Yes Plan: 02/17/2018 plan today put her as an inpatient blood cultures urine cultures sent from the ER. Started on IV Rocephin 1 g daily and levofloxacin 500 mg IV daily. Going to repeat the lactic acid level this evening. Start IV fluids normal saline at 75 cc/h. Restarted on home medications. Be going to do the light daily labs. Restarted her home medications. GI prophylaxis was started. She was placed on Lovenox 40 mg subcu daily. (2) Diabetes 1.5, managed as type 2 Is this a current diagnosis for this admission?: Yes Plan: 02/17/2018 patient has history of diabetes mellitus on Metformin I am going to put her on insulin sliding scale before meals and at bedtime but I need to hold metformin and I am going to check her hemoglobin A1c tomorrow morning. (3) Hypertension Is this a current diagnosis for this admission?: Yes Plan: 02/17/2018 patient has history of hypertension blood pressure today is 132/60. Patient on losartan 50 mg and hydrochlorothiazide 25 mg daily plan to restart her home medications. (4) Asthma Is this a current diagnosis for this admission?: Yes Plan: 02/17/2018 patient has history of asthma on examination bilateral wheezing is present started on ipratropium bromide nebulizations every 6 as needed. X-ray was negative for pneumonia. - Time Time Spent: 50 to 70 Minutes Medications reviewed and adjusted accordingly: Yes Anticipated discharge: Other - Assisted living
--- NOTE | 2018-02-17 16:02 | RADIOLOGY REPORT (SQ) ---
EXAM DESCRIPTION: KUB/ABDOMEN (SINGLE VIEW) COMPLETED DATE/TIME: 02/17/2018 3:49 pm REASON FOR STUDY: abd pain COMPARISON: None. NUMBER OF VIEWS: One view. TECHNIQUE: Supine radiographic image of the abdomen acquired. LIMITATIONS: None. FINDINGS: BOWEL GAS PATTERN: Normal bowel gas pattern. No dilated loops. CALCIFICATIONS: No suspicious calcifications. Scattered vascular calcifications. SOFT TISSUES: No gross mass or suggestion of organomegaly. HARDWARE: Jimenez catheter tip terminates in the expected region the urinary bladder. BONES: No acute fracture. No worrisome bone lesions. Incompletely visualized internal fixation hardw are of the left femur with a goal displaced left intertrochanteric fracture. OTHER: No other significant finding. IMPRESSION: NO RADIOGRAPHIC EVIDENCE FOR ACUTE ABDOMINAL DISEASE. TECHNICAL DOCUMENTATION: JOB ID: [id number] [employer]- All Rights Reserved Reading location - IP/workstation name: [email or web address]
[2018-02-17] MEDS: DOCUSATE SODIUM 100 MG CAPSULE PO SCH (18:07)
[2018-02-17] MEDS: INSULIN REG, HUMAN 100 UNIT/ML 3 ML VIAL (PYX) SUBCUT PRN ×2 (18:52→23:17)
[2018-02-17] MEDS: FAMOTIDINE INJ/PF 20 MG/2 ML SDV IV SCH (23:06)
[2018-02-17] MEDS: ATORVASTATIN CALCIUM 10 MG TABLET PO SCH (23:06)
[2018-02-17] MEDS: MONTELUKAST SODIUM 10 MG TABLET PO SCH (23:07)
[2018-02-18 04:57] LABS: HEMATOCRIT 35.5 % (36.0-47.0); MEAN CORPUSCULAR HEMOGLOBIN 32.6 pg (27.0-33.4); MEAN CORPUSCULAR HGB CONC 33.9 g/dL (32.0-36.0); MEAN CORPUSCULAR VOLUME 96 fl (80-97); PLATELET COUNT 168 10^3/uL (150-450); RED BLOOD COUNT 3.69 10^6/uL (3.72-5.28); RED CELL DISTRIBUTION WIDTH 14.8 % (11.5-14.0); WHITE BLOOD COUNT 6.9 10^3/uL (4.0-10.5)
[2018-02-18 05:03] LABS: ALANINE AMINOTRANSFERASE 43 U/L (9-52); ALBUMIN 2.6 g/dL (3.5-5.0); ALKALINE PHOSPHATASE 122 U/L (38-126); ANION GAP 5 (5-19); ASPARTATE AMINO TRANSFERASE 70 U/L (14-36); BILIRUBIN,DIRECT 0.3 mg/dL (0.0-0.4); BILIRUBIN,TOTAL 0.8 mg/dL (0.2-1.3); BLOOD UREA NITROGEN 19 mg/dL (7-20); CALCIUM 7.8 mg/dL (8.4-10.2); CARBON DIOXIDE 27 mmol/L (22-30); CHLORIDE 103 mmol/L (98-107); CHOLESTEROL 105.97 mg/dL (0-200); GLUCOSE 141 mg/dL (75-110); POTASSIUM 3.7 mmol/L (3.6-5.0); TOTAL PROTEIN 6.1 g/dL (6.3-8.2); TRIGLYCERIDES 67 mg/dL (<150)
[2018-02-18 05:14] LABS: DIRECT LDL 59 mg/dL (<100)
[2018-02-18 05:28] LABS: ABSOLUTE LYMPHOCYTES# (MANUAL) 1.2 10^3/uL (0.5-4.7); ABSOLUTE MONOCYTES # (MANUAL) 1.3 10^3/uL (0.1-1.4); ABSOLUTE NEUTROPHILS# (MANUAL) 4.3 10^3/uL (1.7-8.2); BASOPHILS % (MANUAL) 0 % (0-2); EOSINOPHILS % (MANUAL) 0 % (0-6); LYMPHOCYTES % (MANUAL) 16 % (13-45); MONOCYTES % (MANUAL) 19 % (3-13); SEGMENTED NEUTROPHILS % (MAN) 63 % (42-78); TOTAL CELLS COUNTED 100
[2018-02-18 05:31] LABS: PLATELET COMMENT ADEQUATE; POIKILOCYTOSIS SLIGHT; SCHISTOCYTES SLIGHT; TARGET CELLS 1+; TOXIC GRANULATION SLIGHT; TOXIC VACUOLATION PRESENT
[2018-02-18] MEDS: NORMAL SALINE 1000 ML 1,000 ML IV PRN ×2 (06:37→21:13)
[2018-02-18] MEDS: BENZONATATE 100 MG CAPSULE PO PRN ×2 (08:22→19:36)
[2018-02-18] MEDS: HYDROCHLOROTHIAZIDE 25 MG TABLET PO SCH (08:22)
--- NOTE | 2018-02-18 08:53 | PDOC PROGRESS REPORT ---
Subjective Progress Note for:: 02/18/18 Subjective:: 02/18/2018 87-year-old female admitted for UTI with elevated lactic acid levels repeat lactic acid level came down to 2.6. She had a fever of 100.3 this morning. Patient is complaining of cough she is on Tessalon Perles other than that she is doing well. Reason For Visit: UTI Physical Exam Vital Signs: Temp Pulse Resp BP Pulse Ox 100.3 F 86 20 142/43 H 94 02/18/18 07:28 02/18/18 07:28 02/18/18 07:28 02/18/18 07:28 02/18/18 07:28 Intake & Output 02/17/18 02/18/18 02/19/18 06:59 06:59 06:59 Intake Total 3098 Output Total 830 Balance 2268 Weight 63 kg General appearance: PRESENT: no acute distress Head exam: PRESENT: atraumatic Eye exam: PRESENT: PERRLA Mouth exam: PRESENT: moist Neck exam: ABSENT: carotid bruit, JVD, lymphadenopathy, thyromegaly Respiratory exam: PRESENT: clear to auscultation anny. ABSENT: rales, rhonchi, wheezes Cardiovascular exam: PRESENT: RRR. ABSENT: diastolic murmur, rubs, systolic murmur GI/Abdominal exam: PRESENT: normal bowel sounds, soft. ABSENT: distended, guarding, mass, organolmegaly, rebound, tenderness Extremities exam: PRESENT: full ROM. ABSENT: calf tenderness, clubbing, pedal edema Neurological exam: PRESENT: alert, awake, oriented to person, oriented to place, oriented to time, oriented to situation, CN II-XII grossly intact. ABSENT: motor sensory deficit Psychiatric exam: PRESENT: appropriate affect, normal mood. ABSENT: homicidal ideation, suicidal ideation Results Laboratory Results: 02/18/18 04:14 02/18/18 04:14 02/17/18 02/17/18 02/17/18 12:35 12:35 12:35 WBC 11.1 H RBC 4.18 Hgb 13.8 Hct 40.5 MCV 97 MCH 32.9 MCHC 34.1 RDW 15.0 H Plt Count 207 Seg Neutrophils % 74.1 Lymphocytes % 7.1 L Monocytes % 17.9 H Eosinophils % 0.1 Basophils % 0.8 Absolute Neutrophils 8.2 Absolute Lymphocytes 0.8 Absolute Monocytes 2.0 H Absolute Eosinophils 0.0 Absolute Basophils 0.1 Sodium 132.1 L Potassium 4.1 Chloride 97 L Carbon Dioxide 26 Anion Gap 9 BUN 17 Creatinine 0.75 Est GFR ( Amer) > 60 Est GFR (Non-Af Amer) > 60 Glucose 223 H Lactic Acid Cancelled Calcium 9.1 Magnesium Total Bilirubin 1.6 H AST 81 H ALT 46 Alkaline Phosphatase 188 H Total Protein 7.2 Albumin 3.4 L Triglycerides Cholesterol LDL Cholesterol Direct VLDL Cholesterol HDL Cholesterol Lipase 152.0 TSH Urine Color Urine Appearance Urine pH Ur Specific [place] Urine Protein Urine Glucose (UA) Urine Ketones Urine Blood Urine Nitrite Ur Leukocyte Esterase Urine WBC (Auto) Urine RBC (Auto) 02/17/18 02/17/18 02/17/18 13:10 13:14 17:37 WBC RBC Hgb Hct MCV MCH MCHC RDW Plt Count Seg Neutrophils % Lymphocytes % Monocytes % Eosinophils % Basophils % Absolute Neutrophils Absolute Lymphocytes Absolute Monocytes Absolute Eosinophils Absolute Basophils Sodium Potassium Chloride Carbon Dioxide Anion Gap BUN Creatinine Est GFR ( Amer) Est GFR (Non-Af Amer) Glucose Lactic Acid 3.5 H 2.6 H Calcium Magnesium Total Bilirubin AST ALT Alkaline Phosphatase Total Protein Albumin Triglycerides Cholesterol LDL Cholesterol Direct VLDL Cholesterol HDL Cholesterol Lipase TSH Urine Color MICHELLE Urine Appearance CLOUDY Urine pH 6.0 Ur Specific [place] 1.015 Urine Protein NEGATIVE Urine Glucose (UA) NEGATIVE Urine Ketones NEGATIVE Urine Blood NEGATIVE Urine Nitrite NEGATIVE Ur Leukocyte Esterase TRACE H Urine WBC (Auto) 21 Urine RBC (Auto) 1 02/18/18 02/18/18 02/18/18 04:14 04:14 04:14 WBC 6.9 RBC 3.69 L Hgb 12.0 Hct 35.5 L MCV 96 MCH 32.6 MCHC 33.9 RDW 14.8 H Plt Count 168 Seg Neutrophils % Not Reportable Lymphocytes % Not Reportable Monocytes % Not Reportable Eosinophils % Not Reportable Basophils % Not Reportable Absolute Neutrophils Not Reportable Absolute Lymphocytes Not Reportable Absolute Monocytes Not Reportable Absolute Eosinophils Not Reportable Absolute Basophils Not Reportable Sodium 135.0 L Potassium 3.7 Chloride 103 Carbon Dioxide 27 Anion Gap 5 BUN 19 Creatinine 0.71 Est GFR ( Amer) > 60 Est GFR (Non-Af Amer) > 60 Glucose 141 H Lactic Acid Calcium 7.8 L Magnesium 1.5 L Total Bilirubin 0.8 AST 70 H ALT 43 Alkaline Phosphatase 122 Total Protein 6.1 L Albumin 2.6 L Triglycerides 67 Cholesterol 105.97 LDL Cholesterol Direct 59 VLDL Cholesterol 13.0 HDL Cholesterol 32 L Lipase TSH 1.44 Urine Color Urine Appearance Urine pH Ur Specific [place] Urine Protein Urine Glucose (UA) Urine Ketones Urine Blood Urine Nitrite Ur Leukocyte Esterase Urine WBC (Auto) Urine RBC (Auto) Impressions: KUB X-Ray 02/17/18 00:00 IMPRESSION: NO RADIOGRAPHIC EVIDENCE FOR ACUTE ABDOMINAL DISEASE. Chest X-Ray 02/17/18 12:44 IMPRESSION: NO ACUTE RADIOGRAPHIC FINDING IN THE CHEST. Assessment & Plan - Diagnosis (1) Acute UTI (urinary tract infection) Is this a current diagnosis for this admission?: Yes Plan: 02/17/2018 plan today put her as an inpatient blood cultures urine cultures sent from the ER. Started on IV Rocephin 1 g daily and levofloxacin 500 mg IV daily. Going to repeat the lactic acid level this evening. Start IV fluids normal saline at 75 cc/h. Restarted on home medications. Be going to do the light daily labs. Restarted her home medications. GI prophylaxis was started. She was placed on Lovenox 40 mg subcu daily. 02/18/2018 patient came in with UTI and elevated lactic acid levels she was started on IV Rocephin 1 g daily levofloxacin 500 mg IV daily T-max is 100.3 today. Urine culture and blood cultures are pending. Plan is to continue the present management. (2) Diabetes 1.5, managed as type 2 Is this a current diagnosis for this admission?: Yes Plan: 02/17/2018 patient has history of diabetes mellitus on Metformin I am going to put her on insulin sliding scale before meals and at bedtime but I need to hold metformin and I am going to check her hemoglobin A1c tomorrow morning. 02/18/2018-blood sugar today is 140. She is on metformin at home which is on hold. She is on sliding scale. Hemoglobin A1c 7.1. Plan is to continue the present management. (3) Hypertension Is this a current diagnosis for this admission?: Yes Plan: 02/17/2018 patient has history of hypertension blood pressure today is 132/60. Patient on losartan 50 mg and hydrochlorothiazide 25 mg daily plan to restart her home medications. 02/18/2018-patient's blood pressure today is 142/43. Asymptomatic. Patient presently on losartan/hydrochlorothiazide 50/25 mg p.o. daily. Plan is to continue the present management. (4) Asthma Is this a current diagnosis for this admission?: Yes Plan: 02/17/2018 patient has history of asthma on examination bilateral wheezing is present started on ipratropium bromide nebulizations every 6 as needed. X-ray was negative for pneumonia. 02/18/2018-patient has history of asthma yesterday examination in the ER bilateral wheezing is present today wheezing was much improved. - Time Time Spent with patient: 15-24 minutes Medications reviewed and adjusted accordingly: Yes Anticipated discharge: Other - Assisted living
[2018-02-18] MEDS ORDERED: LOSARTAN POTASSIUM 50 MG TABLET PO SCH (10:00)
[2018-02-18] MEDS ORDERED: CRANBERRY 1000 MG PO SCH (10:00)
[2018-02-18] MEDS: CEFTRIAXONE 1 GM/D5W RTU 1 GM/50 ML RTUPB IV SCH (11:05)
[2018-02-18] MEDS: DOCUSATE SODIUM 100 MG CAPSULE PO SCH ×2 (11:08→17:50)
[2018-02-18] MEDS: MULTIVITAMIN TABLET PO SCH (11:08)
[2018-02-18] MEDS: OMEGA-3 ACID ETHYL ESTERS 1 GM CAPSULE PO SCH (11:08)
[2018-02-18] MEDS: METOPROLOL SUCCINATE 50 MG TAB.SR.24H PO SCH (11:08)
[2018-02-18] MEDS: CALCIUM CARBONATE 250 MG/VITAMIN D3 125 UNIT TABLET PO SCH (11:09)
[2018-02-18] MEDS: ENOXAPARIN SODIUM INJ 40 MG/0.4 ML DISP.SYRIN SUBCUT SCH (11:09)
[2018-02-18] MEDS: FAMOTIDINE INJ/PF 20 MG/2 ML SDV IV SCH ×2 (11:09→21:12)
[2018-02-18] MEDS: CETIRIZINE 10 MG TABLET PO SCH (11:09)
[2018-02-18] MEDS: BUDESONIDE/FORMOTEROL 160-4.5 MCG 60 PUFF/6 GM MDI IH SCH ×2 (13:07→17:49)
[2018-02-18] MEDS: INSULIN REG, HUMAN 100 UNIT/ML 3 ML VIAL (PYX) SUBCUT PRN ×3 (13:10→21:17)
[2018-02-18] MEDS ORDERED: LEVOFLOXACIN 500 MG/D5W RTU 500 MG/100 ML RTUPB IV SCH (18:00)
[2018-02-18] MEDS: MONTELUKAST SODIUM 10 MG TABLET PO SCH (21:09)
[2018-02-18] MEDS: ATORVASTATIN CALCIUM 10 MG TABLET PO SCH (21:09)
[2018-02-18] MEDS: LATANOPROST 0.005% OPH SOLN 2.5 ML OU SCH (21:13)
[2018-02-19] MEDS: BENZONATATE 100 MG CAPSULE PO PRN ×2 (01:43→17:36)
[2018-02-19 07:51] LABS: ABSOLUTE EOSINOPHILS # (AUTO) 0.1 10^3/uL (0.0-0.6); ABSOLUTE LYMPHOCYTES (AUTO) 1.9 10^3/uL (0.5-4.7); ABSOLUTE MONOCYTES (AUTO) 1.1 10^3/uL (0.1-1.4); ABSOLUTE NEUT (AUTO) 3.1 10^3/uL (1.7-8.2); BASOPHILS % (AUTO) 0.8 % (0-2); EOSINOPHILS % (AUTO) 1.5 % (0-6); HEMATOCRIT 37.6 % (36.0-47.0); HEMOGLOBIN 12.8 g/dL (12.0-15.5); LYMPHOCYTES % (AUTO) 30.6 % (13-45); MEAN CORPUSCULAR HEMOGLOBIN 32.9 pg (27.0-33.4); MEAN CORPUSCULAR HGB CONC 34.2 g/dL (32.0-36.0); MEAN CORPUSCULAR VOLUME 96 fl (80-97); MONOCYTES % (AUTO) 16.8 % (3-13); PLATELET COUNT 163 10^3/uL (150-450); RED CELL DISTRIBUTION WIDTH 15.2 % (11.5-14.0); SEGMENTED NEUTROPHILS % (AUTO) 50.3 % (42-78); TOTAL CELLS COUNTED % (AUTO) 100 %; WHITE BLOOD COUNT 6.3 10^3/uL (4.0-10.5)
--- NOTE | 2018-02-19 08:48 | PDOC PROGRESS REPORT ---
Subjective Progress Note for:: 02/19/18 Subjective:: The patient appears to be doing better. She is still confused. Part of it is dementia with possible sundowning. There is no more fever. She is tolerating antibiotics well. Reason For Visit: UTI Physical Exam Vital Signs: Temp Pulse Resp BP Pulse Ox 98.9 F 73 24 H 169/49 H 97 02/19/18 07:23 02/19/18 07:23 02/19/18 07:23 02/19/18 07:23 02/19/18 07:23 Intake & Output 02/18/18 02/19/18 02/20/18 06:59 06:59 06:59 Intake Total 3098 2037 Output Total 830 100 Balance 2268 1937 Weight 63 kg 61.8 kg General appearance: PRESENT: mild distress Head exam: PRESENT: atraumatic Eye exam: PRESENT: conjunctival injection Respiratory exam: PRESENT: rhonchi Cardiovascular exam: PRESENT: RRR, +S1, +S2 GI/Abdominal exam: PRESENT: soft, tenderness. ABSENT: guarding, rebound Extremities exam: PRESENT: tenderness Musculoskeletal exam: PRESENT: tenderness Neurological exam: PRESENT: alert, awake Results Laboratory Results: 02/19/18 07:17 02/18/18 04:14 02/19/18 07:17 WBC 6.3 RBC 3.90 Hgb 12.8 Hct 37.6 MCV 96 MCH 32.9 MCHC 34.2 RDW 15.2 H Plt Count 163 Seg Neutrophils % 50.3 Lymphocytes % 30.6 Monocytes % 16.8 H Eosinophils % 1.5 Basophils % 0.8 Absolute Neutrophils 3.1 Absolute Lymphocytes 1.9 Absolute Monocytes 1.1 Absolute Eosinophils 0.1 Absolute Basophils 0.0 Impressions: KUB X-Ray 02/17/18 00:00 IMPRESSION: NO RADIOGRAPHIC EVIDENCE FOR ACUTE ABDOMINAL DISEASE. Chest X-Ray 02/17/18 12:44 IMPRESSION: NO ACUTE RADIOGRAPHIC FINDING IN THE CHEST. Assessment & Plan - Diagnosis (1) Acute UTI (urinary tract infection) Is this a current diagnosis for this admission?: Yes Plan: The urine culture shows E. coli. We will continue with antibiotics. The patient is allergic to Cipro. Will stop the Levaquin. (2) Diabetes 1.5, managed as type 2 Is this a current diagnosis for this admission?: Yes Plan: Continue current treatment (3) Hypertension Is this a current diagnosis for this admission?: Yes Plan: Continue current medications. Stop the losartan because of withdrawal (4) Dementia Qualifiers: Dementia type: Alzheimer's disease Alzheimer's disease onset: late-onset Dementia behavioral disturbance: without behavioral disturbance Qualified Cod e(s): G30.1 - Alzheimer's disease with late onset; F02.80 - Dementia in other diseases classified elsewhere without behavioral disturbance Is this a current diagnosis for this admission?: Yes Plan: Continue current treatment.
[2018-02-19] MEDS: CEFTRIAXONE 1 GM/D5W RTU 1 GM/50 ML RTUPB IV SCH (09:21)
[2018-02-19] MEDS: HYDROCHLOROTHIAZIDE 25 MG TABLET PO SCH (09:22)
[2018-02-19] MEDS: FAMOTIDINE INJ/PF 20 MG/2 ML SDV IV SCH (09:22)
[2018-02-19] MEDS: CALCIUM CARBONATE 250 MG/VITAMIN D3 125 UNIT TABLET PO SCH (09:22)
[2018-02-19] MEDS: MULTIVITAMIN TABLET PO SCH (09:23)
[2018-02-19] MEDS: ENOXAPARIN SODIUM INJ 40 MG/0.4 ML DISP.SYRIN SUBCUT SCH (09:23)
[2018-02-19] MEDS: METOPROLOL SUCCINATE 50 MG TAB.SR.24H PO SCH (09:23)
[2018-02-19] MEDS: OMEGA-3 ACID ETHYL ESTERS 1 GM CAPSULE PO SCH (09:23)
[2018-02-19] MEDS: DOCUSATE SODIUM 100 MG CAPSULE PO SCH ×2 (09:23→17:34)
[2018-02-19] MEDS: ASCORBIC ACID 500 MG TABLET PO SCH (09:23)
[2018-02-19] MEDS: CETIRIZINE 10 MG TABLET PO SCH (09:23)
[2018-02-19] MEDS: BUDESONIDE/FORMOTEROL 160-4.5 MCG 60 PUFF/6 GM MDI IH SCH ×2 (09:24→17:36)
[2018-02-19] MEDS: IPRATROPIUM/ALBUTEROL 0.5-2.5 MG/3 ML AMPUL NEB SCH ×3 (11:31→19:56)
[2018-02-19] MEDS: LATANOPROST 0.005% OPH SOLN 2.5 ML OU SCH (21:04)
[2018-02-19] MEDS: ATORVASTATIN CALCIUM 10 MG TABLET PO SCH (21:04)
[2018-02-19] MEDS: MONTELUKAST SODIUM 10 MG TABLET PO SCH (21:04)
[2018-02-19] MEDS ORDERED: FAMOTIDINE 20 MG TABLET PO SCH (22:00)
[2018-02-19] MEDS: INSULIN REG, HUMAN 100 UNIT/ML 3 ML VIAL (PYX) SUBCUT PRN (22:57)
[2018-02-20 05:57] LABS: ABSOLUTE EOSINOPHILS # (AUTO) 0.1 10^3/uL (0.0-0.6); ABSOLUTE LYMPHOCYTES (AUTO) 1.9 10^3/uL (0.5-4.7); ABSOLUTE MONOCYTES (AUTO) 0.6 10^3/uL (0.1-1.4); ABSOLUTE NEUT (AUTO) 1.4 10^3/uL (1.7-8.2); BASOPHILS % (AUTO) 0.9 % (0-2); EOSINOPHILS % (AUTO) 1.7 % (0-6); HEMATOCRIT 37.4 % (36.0-47.0); HEMOGLOBIN 12.7 g/dL (12.0-15.5); LYMPHOCYTES % (AUTO) 47.5 % (13-45); MEAN CORPUSCULAR HEMOGLOBIN 32.9 pg (27.0-33.4); MEAN CORPUSCULAR VOLUME 97 fl (80-97); MONOCYTES % (AUTO) 14.5 % (3-13); PLATELET COUNT 165 10^3/uL (150-450); RED BLOOD COUNT 3.86 10^6/uL (3.72-5.28); RED CELL DISTRIBUTION WIDTH 14.9 % (11.5-14.0); SEGMENTED NEUTROPHILS % (AUTO) 35.4 % (42-78); TOTAL CELLS COUNTED % (AUTO) 100 %; WHITE BLOOD COUNT 3.9 10^3/uL (4.0-10.5)
[2018-02-20 06:17] LABS: ALANINE AMINOTRANSFERASE 47 U/L (9-52); ALBUMIN 2.5 g/dL (3.5-5.0); ALKALINE PHOSPHATASE 123 U/L (38-126); ASPARTATE AMINO TRANSFERASE 77 U/L (14-36); BILIRUBIN,DIRECT 0.2 mg/dL (0.0-0.4); BILIRUBIN,TOTAL 0.8 mg/dL (0.2-1.3); BLOOD UREA NITROGEN 11 mg/dL (7-20); CALCIUM 7.8 mg/dL (8.4-10.2); CARBON DIOXIDE 27 mmol/L (22-30); CHLORIDE 102 mmol/L (98-107); GLUCOSE 143 mg/dL (75-110); POTASSIUM 3.4 mmol/L (3.6-5.0); SODIUM 131.4 mmol/L (137-145); TOTAL PROTEIN 6.1 g/dL (6.3-8.2)
[2018-02-20 06:29] LABS: ANION GAP 2 (5-19)
--- NOTE | 2018-02-20 08:49 | PDOC PROGRESS REPORT ---
Subjective Progress Note for:: 02/20/18 Subjective:: The patient appears to be more alert this morning. She was able to ambulate in the [place] with assistance and a walker. She denies any fever or chills. She still has some mild residual cough. Reason For Visit: UTI Physical Exam Vital Signs: Temp Pulse Resp BP Pulse Ox 98.8 F 72 16 168/59 H 93 02/20/18 07:33 02/20/18 07:33 02/20/18 07:33 02/20/18 07:33 02/20/18 07:33 Intake & Output 02/19/18 02/20/18 02/21/18 06:59 06:59 06:59 Intake Total 2036 1851 Output Total 100 Balance 1936 1851 Weight 61.8 kg 61.5 kg General appearance: PRESENT: mild distress Head exam: PRESENT: atraumatic Eye exam: PRESENT: conjunctiva pink Respiratory exam: PRESENT: rhonchi. ABSENT: wheezes Cardiovascular exam: PRESENT: RRR, +S1, +S2 GI/Abdominal exam: PRESENT: normal bowel sounds, soft Extremities exam: PRESENT: full ROM Musculoskeletal exam: PRESENT: ambulatory Neurological exam: PRESENT: alert, awake Results Laboratory Results: 02/20/18 05:03 02/20/18 05:03 02/20/18 02/20/18 02/20/18 05:03 05:03 05:03 WBC 3.9 L RBC 3.86 Hgb 12.7 Hct 37.4 MCV 97 MCH 32.9 MCHC 34.0 RDW 14.9 H Plt Count 165 Seg Neutrophils % 35.4 L Lymphocytes % 47.5 H Monocytes % 14.5 H Eosinophils % 1.7 Basophils % 0.9 Absolute Neutrophils 1.4 L Absolute Lymphocytes 1.9 Absolute Monocytes 0.6 Absolute Eosinophils 0.1 Absolute Basophils 0.0 Sodium 131.4 L Potassium 3.4 L Chloride 102 Carbon Dioxide 27 Anion Gap 2 L BUN 11 Creatinine 0.53 Est GFR ( Amer) > 60 Est GFR (Non-Af Amer) > 60 Glucose 143 H Calcium 7.8 L Magnesium 1.6 Total Bilirubin 0.8 AST 77 H ALT 47 Alkaline Phosphatase 123 Total Protein 6.1 L Albumin 2.5 L TSH 3.23 02/17/18 13:10 Catheterized Urine Urine Culture - Final Escherichia Coli Impressions: KUB X-Ray 02/17/18 00:00 IMPRESSION: NO RADIOGRAPHIC EVIDENCE FOR ACUTE ABDOMINAL DISEASE. Chest X-Ray 02/17/18 12:44 IMPRESSION: NO ACUTE RADIOGRAPHIC FINDING IN THE CHEST. Assessment & Plan - Diagnosis (1) Acute UTI (urinary tract infection) Is this a current diagnosis for this admission?: Yes Plan: Positive for E. coli. Sensitive to ceftriaxone. Will use it because of upper respiratory tract infection also (2) Diabetes 1.5, managed as type 2 Is this a current diagnosis for this admission?: Yes Plan: Continue current treatment (3) Hypertension Is this a current diagnosis for this admission?: Yes Plan: Continue current medications. Stop the losartan because of withdrawal (4) Dementia Qualifiers: Dementia type: Alzheimer's disease Alzheimer's disease onset: late-onset Dementia behavioral disturbance: without behavioral disturbance Qualified Code(s): G30.1 - Alzheimer's disease with late onset; F02.80 - Dementia in other diseases classified elsewhere without behavioral disturbance Is this a current diagnosis for this admission?: Yes Plan: Continue current treatment. (5) URI (upper respiratory infection) Qualifiers: URI type: unspecified URI Qualified Code(s): J06.9 - Acute upper respiratory infection, unspecified Is this a current diagnosis for this admission?: Yes Plan: We will continue ceftriaxone and antihistamines
[2018-02-20] MEDS: IPRATROPIUM/ALBUTEROL 0.5-2.5 MG/3 ML AMPUL NEB SCH ×4 (08:52→19:41)
[2018-02-20] MEDS: ASCORBIC ACID 500 MG TABLET PO SCH (09:06)
[2018-02-20] MEDS: METOPROLOL SUCCINATE 50 MG TAB.SR.24H PO SCH (09:06)
[2018-02-20] MEDS: OMEGA-3 ACID ETHYL ESTERS 1 GM CAPSULE PO SCH (09:06)
[2018-02-20] MEDS: CALCIUM CARBONATE 250 MG/VITAMIN D3 125 UNIT TABLET PO SCH (09:06)
[2018-02-20] MEDS: HYDROCHLOROTHIAZIDE 25 MG TABLET PO SCH (09:06)
[2018-02-20] MEDS: CETIRIZINE 10 MG TABLET PO SCH (09:07)
[2018-02-20] MEDS: DOCUSATE SODIUM 100 MG CAPSULE PO SCH ×2 (09:07→17:25)
[2018-02-20] MEDS: MULTIVITAMIN TABLET PO SCH (09:07)
[2018-02-20] MEDS: ENOXAPARIN SODIUM INJ 40 MG/0.4 ML DISP.SYRIN SUBCUT SCH (09:07)
[2018-02-20] MEDS: BUDESONIDE/FORMOTEROL 160-4.5 MCG 60 PUFF/6 GM MDI IH SCH ×2 (09:08→17:26)
[2018-02-20] MEDS: AMLODIPINE BESYLATE 5 MG TABLET PO SCH (09:11)
[2018-02-20] MEDS: LANSOPRAZOLE 30 MG TAB.RAP.DR PO SCH (09:11)
[2018-02-20] MEDS: CEFTRIAXONE 1 GM/D5W RTU 1 GM/50 ML RTUPB IV SCH (09:14)
[2018-02-20] MEDS ORDERED: ERTAPENEM SODIUM 1 GM in NORMAL SALINE 50 ML IV SCH (10:00)
[2018-02-20] MEDS: INSULIN REG, HUMAN 100 UNIT/ML 3 ML VIAL (PYX) SUBCUT PRN (17:33)
[2018-02-20] MEDS: MONTELUKAST SODIUM 10 MG TABLET PO SCH (22:20)
[2018-02-20] MEDS: ATORVASTATIN CALCIUM 10 MG TABLET PO SCH (22:20)
[2018-02-20] MEDS: LATANOPROST 0.005% OPH SOLN 2.5 ML OU SCH (22:21)
[2018-02-21] MEDS: LANSOPRAZOLE 30 MG TAB.RAP.DR PO SCH (05:44)
[2018-02-21] MEDS: IPRATROPIUM/ALBUTEROL 0.5-2.5 MG/3 ML AMPUL NEB SCH ×4 (07:45→19:39)
--- NOTE | 2018-02-21 08:23 | PDOC PROGRESS REPORT ---
Subjective Progress Note for:: 02/21/18 Subjective:: The patient appears to be confused this morning. She is not sure if she has cough. She is not sure if she has diarrhea. She denies any shortness of breath. Reason For Visit: UTI Physical Exam Vital Signs: Temp Pulse Resp BP Pulse Ox 98.3 F 78 18 140/47 H 96 02/21/18 07:15 02/21/18 07:15 02/21/18 07:15 02/21/18 07:15 02/21/18 07:15 Intake & Output 02/20/18 02/21/18 02/22/18 06:59 06:59 06:59 Intake Total 1852 514 Balance 1852 514 Weight 61.5 kg 60.1 kg General appearance: PRESENT: mild distress Head exam: PRESENT: atraumatic Eye exam: PRESENT: conjunctiva pink Neck exam: PRESENT: carotid bruit. ABSENT: JVD Respiratory exam: PRESENT: rhonchi, wheezes Cardiovascular exam: PRESENT: RRR, +S1, +S2 GI/Abdominal exam: PRESENT: normal bowel sounds, soft Extremities exam: PRESENT: tenderness Musculoskeletal exam: PRESENT: ambulatory Neurological exam: PRESENT: alert, awake Results Laboratory Results: 02/20/18 05:03 02/20/18 05:03 Impressions: KUB X-Ray 02/17/18 00:00 IMPRESSION: NO RADIOGRAPHIC EVIDENCE FOR ACUTE ABDOMINAL DISEASE. Chest X-Ray 02/17/18 12:44 IMPRESSION: NO ACUTE RADIOGRAPHIC FINDING IN THE CHEST. Assessment & Plan - Diagnosis (1) Acute UTI (urinary tract infection) Is this a current diagnosis for this admission?: Yes Plan: Positive for E. coli. Sensitive to ceftriaxone. Will use it because of upper respiratory tract infection also (2) Diabetes 1.5, managed as type 2 Is this a current diagnosis for this admission?: Yes Plan: Continue current treatment (3) Hypertension Is this a current diagnosis for this admission?: Yes (4) Dementia Qualifiers: Dementia type: Alzheimer's disease Alzheimer's disease onset: late-onset Dementia behavioral disturbance: without behavioral disturbance Qualified Code(s): G30.1 - Alzheimer's disease with late onset; F02.80 - Dementia in other diseases classified elsewhere without behavioral disturbance Is this a current diagnosis for this admission?: Yes (5) URI (upper respiratory infection) Qualifiers: URI type: unspecified URI Qualified Code(s): J06.9 - Acute upper respiratory infection, unspecified Is this a current diagnosis for this admission?: Yes Plan: We will continue ceftriaxone and antihistamines (6) Asthmatic bronchitis Is this a current diagnosis for this admission?: Yes Plan: We will add some prednisone.
[2018-02-21] MEDS ORDERED: PREDNISONE 20 MG TABLET PO ONE (09:00)
[2018-02-21] MEDS: ENOXAPARIN SODIUM INJ 40 MG/0.4 ML DISP.SYRIN SUBCUT SCH (09:24)
[2018-02-21] MEDS: METOPROLOL SUCCINATE 50 MG TAB.SR.24H PO SCH (09:24)
[2018-02-21] MEDS: ASCORBIC ACID 500 MG TABLET PO SCH (09:24)
[2018-02-21] MEDS: OMEGA-3 ACID ETHYL ESTERS 1 GM CAPSULE PO SCH (09:24)
[2018-02-21] MEDS: AMLODIPINE BESYLATE 5 MG TABLET PO SCH (09:24)
[2018-02-21] MEDS: CETIRIZINE 10 MG TABLET PO SCH (09:24)
[2018-02-21] MEDS: CEFTRIAXONE 1 GM/D5W RTU 1 GM/50 ML RTUPB IV SCH (09:25)
[2018-02-21] MEDS: HYDROCHLOROTHIAZIDE 25 MG TABLET PO SCH (09:28)
[2018-02-21] MEDS: INSULIN REG, HUMAN 100 UNIT/ML 3 ML VIAL (PYX) SUBCUT PRN ×2 (09:29→17:57)
[2018-02-21] MEDS: DOXYCYCLINE HYCLATE 100 MG TABLET PO SCH ×2 (11:11→21:27)
[2018-02-21] MEDS: PREDNISONE 10 MG TABLET PO SCH (17:22)
[2018-02-21] MEDS: LATANOPROST 0.005% OPH SOLN 2.5 ML OU SCH (21:26)
[2018-02-21] MEDS: ATORVASTATIN CALCIUM 10 MG TABLET PO SCH (21:26)
[2018-02-21] MEDS: MONTELUKAST SODIUM 10 MG TABLET PO SCH (21:26)
[2018-02-22] MEDS: IPRATROPIUM/ALBUTEROL 0.5-2.5 MG/3 ML AMPUL NEB SCH ×4 (07:56→19:32)
--- NOTE | 2018-02-22 08:33 | PDOC PROGRESS REPORT ---
Subjective Progress Note for:: 02/22/18 Subjective:: The patient is doing much better. Her cough has improved. She denies any shortness of breath. She is less confused. Reason For Visit: UTI Physical Exam Vital Signs: Temp Pulse Resp BP Pulse Ox 98.1 F 70 16 138/53 H 92 02/21/18 23:31 02/22/18 07:56 02/22/18 07:56 02/21/18 23:31 02/22/18 07:56 Intake & Output 02/21/18 02/22/18 02/23/18 06:59 06:59 06:59 Intake Total 514 674 Balance 514 674 Weight 60.1 kg 58.2 kg General appearance: PRESENT: mild distress Head exam: PRESENT: atraumatic Eye exam: PRESENT: conjunctiva pink Neck exam: PRESENT: carotid bruit. ABSENT: JVD Respiratory exam: PRESENT: rhonchi. ABSENT: wheezes Cardiovascular exam: PRESENT: RRR, +S1, +S2 Pulses: PRESENT: +1 pedal pulses bilateral GI/Abdominal exam: PRESENT: normal bowel sounds, soft Extremities exam: PRESENT: tenderness Musculoskeletal exam: PRESENT: tenderness Neurological exam: PRESENT: alert, awake Results Laboratory Results: 02/20/18 05:03 02/20/18 05:03 Impressions: KUB X-Ray 02/17/18 00:00 IMPRESSION: NO RADIOGRAPHIC EVIDENCE FOR ACUTE ABDOMINAL DISEASE. Chest X-Ray 02/17/18 12:44 IMPRESSION: NO ACUTE RADIOGRAPHIC FINDING IN THE CHEST. Assessment & Plan - Diagnosis (1) Acute UTI (urinary tract infection) Is this a current diagnosis for this admission?: Yes Plan: Improving continue current medication (2) Diabetes 1.5, managed as type 2 Is this a current diagnosis for this admission?: Yes Plan: We will add Amaryl 1 mg daily (3) Hypertension Is this a current diagnosis for this admission?: Yes Plan: Continue current medications. Stop the losartan because of withdrawal (4) Dementia Qualifiers: Dementia type: Alzheimer's disease Alzheimer's disease onset: late-onset Dementia behavioral disturbance: without behavioral disturbance Qualified Code(s): G30.1 - Alzheimer's disease with late onset; F02.80 - Dementia in other diseases classified elsewhere without behavioral disturbance Is this a current diagnosis for this admission?: Yes (5) URI (upper respiratory infection) Qualifiers: URI type: unspecified URI Qualified Code(s): J06.9 - Acute upper respiratory infection, unspecified Is this a current diagnosis for this admission?: Yes Plan: We will repeat blood counts and chest x-ray (6) Asthmatic bronchitis Is this a current diagnosis for this admission?: Yes Plan: Continue with steroids
[2018-02-22] MEDS: ASCORBIC ACID 500 MG TABLET PO SCH (09:08)
[2018-02-22] MEDS: DOXYCYCLINE HYCLATE 100 MG TABLET PO SCH ×2 (09:08→21:22)
[2018-02-22] MEDS: AMLODIPINE BESYLATE 5 MG TABLET PO SCH (09:08)
[2018-02-22] MEDS: METOPROLOL SUCCINATE 50 MG TAB.SR.24H PO SCH (09:08)
[2018-02-22] MEDS: PREDNISONE 10 MG TABLET PO SCH ×2 (09:08→18:32)
[2018-02-22] MEDS: OMEGA-3 ACID ETHYL ESTERS 1 GM CAPSULE PO SCH (09:08)
[2018-02-22] MEDS: GLIMEPIRIDE 1 MG TABLET PO SCH (09:09)
[2018-02-22] MEDS: HYDROCHLOROTHIAZIDE 25 MG TABLET PO SCH (09:09)
[2018-02-22] MEDS: CETIRIZINE 10 MG TABLET PO SCH (09:09)
[2018-02-22] MEDS: BENZONATATE 100 MG CAPSULE PO SCH ×3 (09:09→21:22)
[2018-02-22] MEDS: ENOXAPARIN SODIUM INJ 40 MG/0.4 ML DISP.SYRIN SUBCUT SCH (09:10)
[2018-02-22] MEDS: CEFTRIAXONE 1 GM/D5W RTU 1 GM/50 ML RTUPB IV SCH (09:19)
--- NOTE | 2018-02-22 10:32 | RADIOLOGY REPORT (SQ) ---
EXAM DESCRIPTION: CHEST 2 VIEWS COMPLETED DATE/TIME: 02/22/2018 9:57 am REASON FOR STUDY: cough COMPARISON: 02/17/2018. EXAM PARAMETERS: NUMBER OF VIEWS: two views TECHNIQUE: Digital Frontal and Lateral radiographic views of the chest acquired. RADIATION DOSE: NA LIMITATIONS: none FINDINGS: LUNGS AND PLEURA: Mild diffuse interstitial prominence. Small pleural effusions. Focal a telectasis or scar in the left mid lung. MEDIASTINUM AND HILAR STRUCTURES: No masses or contour abnormalities. HEART AND VASCULAR STRUCTURES: Heart normal size. No evidence for failure. BONES: No acute findings. Chronic changes in the spine with scoliosis. Chronic changes in the shoul ders. HARDWARE: None in the chest. OTHER: No other significant finding. IMPRESSION: MILD DIFFUSE INTERSTITIAL PROMINENCE LIKELY A COMBINATION OF CHRONIC SCARRING AND SUPERI MPOSED MILD INTERSTITIAL EDEMA. SMALL PLEURAL EFFUSIONS. GENERALLY SIMILAR APPEARANCE TO THE PRIOR STUDY. TECHNICAL DOCUMENTATION: JOB ID: [id number] [employer]- All Rights Reserved Reading location - IP/workstation name: [email or web address]
[2018-02-22] MEDS: INSULIN REG, HUMAN 100 UNIT/ML 3 ML VIAL (PYX) SUBCUT PRN ×3 (11:52→21:24)
[2018-02-22] MEDS: ATORVASTATIN CALCIUM 10 MG TABLET PO SCH (21:22)
[2018-02-22] MEDS: MONTELUKAST SODIUM 10 MG TABLET PO SCH (21:22)
[2018-02-22] MEDS: LATANOPROST 0.005% OPH SOLN 2.5 ML OU SCH (21:23)
[2018-02-23] MEDS: BENZONATATE 100 MG CAPSULE PO SCH ×2 (05:03→13:16)
[2018-02-23 06:19] LABS: ABSOLUTE LYMPHOCYTES (AUTO) 2.2 10^3/uL (0.5-4.7); ABSOLUTE MONOCYTES (AUTO) 0.6 10^3/uL (0.1-1.4); ABSOLUTE NEUT (AUTO) 4.8 10^3/uL (1.7-8.2); BASOPHILS % (AUTO) 0.2 % (0-2); HEMATOCRIT 39.1 % (36.0-47.0); HEMOGLOBIN 13.5 g/dL (12.0-15.5); LYMPHOCYTES % (AUTO) 28.6 % (13-45); MEAN CORPUSCULAR HEMOGLOBIN 33.2 pg (27.0-33.4); MEAN CORPUSCULAR HGB CONC 34.5 g/dL (32.0-36.0); MEAN CORPUSCULAR VOLUME 96 fl (80-97); MONOCYTES % (AUTO) 8.2 % (3-13); PLATELET COUNT 177 10^3/uL (150-450); RED BLOOD COUNT 4.06 10^6/uL (3.72-5.28); TOTAL CELLS COUNTED % (AUTO) 100 %; WHITE BLOOD COUNT 7.6 10^3/uL (4.0-10.5)
[2018-02-23 06:37] LABS: ALANINE AMINOTRANSFERASE 38 U/L (9-52); ALBUMIN 2.8 g/dL (3.5-5.0); ALKALINE PHOSPHATASE 129 U/L (38-126); ANION GAP 7 (5-19); ASPARTATE AMINO TRANSFERASE 61 U/L (14-36); BILIRUBIN,DIRECT 0.4 mg/dL (0.0-0.4); BILIRUBIN,TOTAL 0.9 mg/dL (0.2-1.3); BLOOD UREA NITROGEN 13 mg/dL (7-20); CALCIUM 8.4 mg/dL (8.4-10.2); CARBON DIOXIDE 27 mmol/L (22-30); CHLORIDE 101 mmol/L (98-107); GLUCOSE 174 mg/dL (75-110); POTASSIUM 3.9 mmol/L (3.6-5.0); SODIUM 134.6 mmol/L (137-145); TOTAL PROTEIN 6.5 g/dL (6.3-8.2)
--- NOTE | 2018-02-23 08:36 | PDOC TRANSFER SUMMARY ---
General - Admit/Disc Date/PCP Admission Date/Primary Care Provider: 02/17/18 14:12 AURELIA CASAREZ MD Discharge Date: 02/23/18 - Discharge Diagnosis (1) Acute UTI (urinary tract infection) Is this a current diagnosis for this admission?: Yes Summary: Resolved we will continue antibiotics for 5 more days (2) Diabetes 1.5, managed as type 2 Is this a current diagnosis for this admission?: Yes Summary: Diet. We have added Amaryl 1 mg. (3) Hypertension Is this a current diagnosis for this admission?: Yes Summary: Stop losartan because of recall and start Norvasc 5 mg daily (4) Dementia Is this a current diagnosis for this admission?: Yes Summary: Continue current treatment (5) URI (upper respiratory infection) Is this a current diagnosis for this admission?: Yes Summary: We will continue with antibiotics for 5 more days (6) Asthmatic bronchitis Is this a current diagnosis for this admission?: Yes Summary: We will slowly wean off the prednisone (7) Sepsis Is this a current diagnosis for this admission?: Yes Summary: Most probably related to a E. coli urinary tract infection which has resolved - Additional Information Resuscitation Status: Do Not Resuscitate Prescriptions: Amlodipine Besylate [Norvasc 5 mg Tablet] 5 mg PO DAILY #30 tablet Benzonatate [Tessalon Perles 100 mg Capsule] 100 mg PO Q8 #30 capsule Doxycycline Hyclate [Vibramycin 100 mg Tablet] 100 mg PO Q12 #10 tablet Glimepiride [Amaryl 1 mg Tablet] 1 mg PO QAM #30 tablet Prednisone [Deltasone 10 mg Tablet] 10 mg PO BID #60 tablet Home Medications: Calcium Citrate/Vitamin D3 [Calcium Citrate with D Tablet] 1 each PO DAILY 02/09/11 Fluvastatin Sodium [Lescol] 40 mg PO QHS 02/09/11 Hydrochlorothiazide [Hydrodiuril 25 mg Tablet] 25 mg PO QAM 02/09/11 Metformin HCl [Glucophage 500 mg Tablet] 1,000 mg PO BID 02/09/11 Montelukast Sodium [Singulair 10 mg Tablet] 10 mg PO QHS 02/09/11 Cranberry [Cranberry 1000 mg Capsule] 1,000 mg PO DAILY 08/08/16 Metoprolol Succinate [Toprol Xl] 100 mg PO DAILY 08/08/16 Acetaminophen [Tylenol] 325 mg PO Q4HP PRN 02/17/18 Ascorbic Acid [Vitamin C] 1,000 mg PO DAILY 02/17/18 Aspirin [Ecotrin] 81 mg PO DAILY PRN 02/17/18 Budesonide/Formoterol Fumarate [Symbicort HFA 160-4.5 mcg Inhaler 6 gm] 1 puff IN BID 02/17/18 Cetirizine HCl [Zyrtec 10 mg Tablet] 10 mg PO DAILY 02/17/18 Latanoprost [Xalatan] 1 drop OU QHS 02/17/18 Meloxicam [Mobic] 7.5 mg PO DAILY 02/17/18 Omeprazole 20 mg PO DAILY 02/17/18 Tiotropium Peterman [Spiriva Handihaler 5 Cap/Kit (18 Mcg/Cap)] 1 puff IN DAILY 02/17/18 Amlodipine Besylate [Norvasc 5 mg Tablet] 5 mg PO DAILY #30 tablet 02/23/18 Benzonatate [Tessalon Perles 100 mg Capsule] 100 mg PO Q8 #30 capsule 02/23/18 Doxycycline Hyclate [Vibramycin 100 mg Tablet] 100 mg PO Q12 #10 tablet 02/23/18 Glimepiride [Amaryl 1 mg Tablet] 1 mg PO QAM #30 tablet 02/23/18 Prednisone [Deltasone 10 mg Tablet] 10 mg PO BID #60 tablet 02/23/18 History of Present Illness Admission Date/PCP: 02/17/18 14:12 AURELIA CASAREZ MD History of Present Illness: KAYLENE BENDER is a 87 year old female Hospital Course Hospital Course: The patient was admitted with sepsis. The sepsis was related to a urinary tract infection with E. coli. The patient was treated with IV antibiotics. Unfortunately his she has developed an upper respiratory tract symptoms in the second medication needed to be added. She did quite well she has developed an asthmatic bronchitis and was started on p rednisone and nebulization treatments. Her symptomatology was improved and she was discharged back to the [facility] Physical Exam Vital Signs: Temp Pulse Resp BP Pulse Ox 98.7 F 72 19 145/50 H 93 02/22/18 23:16 02/22/18 23:16 02/22/18 23:16 02/22/18 23:16 02/22/18 23:16 Intake & Output 02/22/18 02/23/18 02/24/18 06:59 06:59 06:59 Intake Total 674 1511 Balance 674 1511 Weight 58.2 kg 58 kg General appearance: PRESENT: no acute distress Head exam: PRESENT: atraumatic Respiratory exam: PRESENT: clear to auscultation anny Cardiovascular exam: PRESENT: RRR, +S1, +S2 GI/Abdominal exam: PRESENT: normal bowel sounds, soft Extremities exam: PRESENT: +1 edema Musculoskeletal exam: PRESENT: tenderness Neurological exam: PRESENT: alert, awake Results Laboratory Results: 02/23/18 05:01 02/23/18 05:01 02/23/18 02/23/18 05:01 05:01 WBC 7.6 RBC 4.06 Hgb 13.5 Hct 39.1 MCV 96 MCH 33.2 MCHC 34.5 RDW 15.0 H Plt Count 177 Seg Neutrophils % 63.0 Lymphocytes % 28.6 Monocytes % 8.2 Eosinophils % 0.0 Basophils % 0.2 Absolute Neutrophils 4.8 Absolute Lymphocytes 2.2 Absolute Monocytes 0.6 Absolute Eosinophils 0.0 Absolute Basophils 0.0 Sodium 134.6 L Potassium 3.9 Chloride 101 Carbon Dioxide 27 Anion Gap 7 BUN 13 Creatinine 0.47 L Est GFR ( Amer) > 60 Est GFR (Non-Af Amer) > 60 Glucose 174 H Calcium 8.4 Total Bilirubin 0.9 AST 61 H ALT 38 Alkaline Phosphatase 129 H Total Protein 6.5 Albumin 2.8 L 02/17/18 12:40 Blood Blood Culture - Final NO GROWTH IN 5 DAYS 02/17/18 12:35 Blood Blood Culture - Final NO GROWTH IN 5 DAYS Impressions: KUB X-Ray 02/17/18 00:00 IMPRESSION: NO RADIOGRAPHIC EVIDENCE FOR ACUTE ABDOMINAL DISEASE. Chest X-Ray 02/22/18 00:00 IMPRESSION: MILD DIFFUSE INTERSTITIAL PROMINENCE LIKELY A COMBINATION OF CHRONIC SCARRING AND SUPERIMPOSED MILD INTERSTITIAL EDEMA. SMALL PLEURAL EFFUSIONS. GENERALLY SIMILAR APPEARANCE TO THE PRIOR STUDY. Qualifiers - * PATIENT BEING DISCHARGED WITH ANY OF THE FOLLOWING DIAGNOSIS: No
[2018-02-23] MEDS: INSULIN REG, HUMAN 100 UNIT/ML 3 ML VIAL (PYX) SUBCUT PRN ×2 (08:39→13:16)
[2018-02-23] MEDS: IPRATROPIUM/ALBUTEROL 0.5-2.5 MG/3 ML AMPUL NEB SCH ×2 (08:55→12:40)
[2018-02-23] MEDS: DOXYCYCLINE HYCLATE 100 MG TABLET PO SCH (10:15)
[2018-02-23] MEDS: GLIMEPIRIDE 1 MG TABLET PO SCH (10:15)
[2018-02-23] MEDS: AMLODIPINE BESYLATE 5 MG TABLET PO SCH (10:16)
[2018-02-23] MEDS: OMEGA-3 ACID ETHYL ESTERS 1 GM CAPSULE PO SCH (10:17)
[2018-02-23] MEDS: PREDNISONE 10 MG TABLET PO SCH (10:18)
[2018-02-23] MEDS: ASCORBIC ACID 500 MG TABLET PO SCH (10:18)
[2018-02-23] MEDS: CETIRIZINE 10 MG TABLET PO SCH (10:19)
[2018-02-23] MEDS: ENOXAPARIN SODIUM INJ 40 MG/0.4 ML DISP.SYRIN SUBCUT SCH (10:20)
[2018-02-23] MEDS: METOPROLOL SUCCINATE 50 MG TAB.SR.24H PO SCH (10:20)
[2018-02-23] MEDS: CEFTRIAXONE 1 GM/D5W RTU 1 GM/50 ML RTUPB IV SCH (13:13)
[2018-02-23] MEDS: HYDROCHLOROTHIAZIDE 25 MG TABLET PO SCH (13:19)
[2018-02-23 13:24] VITALS: BP 126/43
== END 2018-02-23 14:40 | DRG 872 ==
LOC: ER 12:25 → EH 14:12 → 4N 22:50
PROVIDERS: ADMIT Internal Medicine; ATTEND Internal Medicine
PROC: 3E0F73Z Introduction of Anti-inflammatory into Respiratory Tract, Via Natural or Artificial Opening (ICD-10-PCS; principal; 2018-02-18)
DX: A41.51 Sepsis due to Escherichia coli [E. coli] (principal); N39.0 Urinary tract infection, site not specified; Z66 Do not resuscitate; E13.9 Other specified diabetes mellitus without complications; I10 Essential (primary) hypertension; J45.909 Unspecified asthma, uncomplicated; J06.9 Acute upper respiratory infection, unspecified; E78.00 Pure hypercholesterolemia, unspecified; K21.9 Gastro-esophageal reflux disease without esophagitis; G30.1 Alzheimer's disease with late onset; F02.80 Dementia in other diseases classified elsewhere, unspecified severity, without behavioral disturbance, psychotic disturbance, mood disturbance, and anxiety; R19.7 Diarrhea, unspecified; F41.9 Anxiety disorder, unspecified; Z79.82 Long term (current) use of aspirin; Z79.899 Other long term (current) drug therapy; Z88.3 Allergy status to other anti-infective agents; Z88.2 Allergy status to sulfonamides; Z88.8 Allergy status to other drugs, medicaments and biological substances; Z79.84 Long term (current) use of oral hypoglycemic drugs
CPT/HCPCS: 36415; 51702; 71045; 71046; 74018; 80053; 80061; 81001; 82962; 83036; 83605; 83690; 83735; 84443; 85025; 87040; 87086; 87088; 87186; 87493; 94640; 96365; 99291; J0696; J1650; J1815; J1956; J3490; J7030; J7512; J7620; S0028

== ENCOUNTER 2018-04-05 13:55 | Emergency (ER) | payer MEDICARE, BC ==
--- NOTE | 2018-04-05 15:15 | RADIOLOGY REPORT (SQ) ---
EXAM DESCRIPTION: CT LUMBAR SPINE WITHOUT COMPLETED DATE/TIME: 04/05/2018 2:56 pm REASON FOR STUDY: low back pain, fall COMPARISON: None. TECHNIQUE: Axial images acquired through the lumbar spine without intravenous contrast. Images revi ewed with lung, soft tissue and bone windows. Reconstructed coronal and sagittal MPR images reviewed . All images stored on PACS. All CT scanners at this facility use dose modulation, iterative reconstruction, and/or weight based d osing when appropriate to reduce radiation dose to as low as reasonably achievable (ALARA). [facility]: Dose Right [facility]: CareDose [facility]: Dose Right [facility]: Teradose 4D [facility]: Baeta RADIATION DOSE: mGy. LIMITATIONS: None. FINDINGS: SEGMENTATION: Normal. No transitional anatomy. ALIGNMENT: Mild levoscoliosis. VERTEBRAL BODIES: Old compression changes at L2. Old superior endplate compression at L4. DISCS: Mild concentric disc bulge at L1-2 with right-sided disc/osteophyte complex component that melvin rows the right neural foramen along with hypertrophic facet changes on that side. Mild concentric di sc bulging at L2-3 with no central canal or foraminal stenosis. Concentric disc bulging at L3-4 with no central canal or foraminal stenosis. Mild concentric disc bulge at L4-5. There is mild central canal stenosis secondary to this and 2 hypertrophic facet changes as described below. PEDICLES, TRANSVERSE PROCESSES: There is a fracture of the right transverse process at L1. FACETS, POSTERIOR ELEMENTS: Hypertrophic facet changes on the right at L1-2. Hypertrophic facet scanlon ges bilaterally at L3-4. Hypertrophic facet changes at L4-5, left more than right. Hypertrophic fac et changes at L5-S1. HARDWARE: None in the spine. VISUALIZED RIBS: No fractures. SOFT TISSUES: No significant or acute finding in adjacent soft tissues. OTHER: No other significant finding. IMPRESSION: 1. There is uncomplicated fracture of the right transverse process of L1. 2. Disc changes as described. Most significant findings or of or right foraminal stenosis at L1-2 a nd the central canal stenosis at L4-5. 3. Facet arthropathy. TECHNICAL DOCUMENTATION: JOB ID: [id number] Quality ID # [id number]: Final reports with documentation of one or more dose reduction techniques (e.g., Au tomated exposure control, adjustment of the mA and/or kV according to patient size, use of iterative reconstruction technique) 2010 [employer]- All Rights Reserved Reading location - IP/workstation name: [email or web address]
[2018-04-05 15:52] LABS: APPEARANCE,URINE SLIGHTLY-CLOUDY; BILIRUBIN,URINE NEGATIVE (NEGATIVE); COLOR,URINE YELLOW; GLUCOSE, URINE NEGATIVE (NEGATIVE); KETONES,URINE NEGATIVE (NEGATIVE); LEUKOCYTE ESTERASE,URINE LARGE (NEGATIVE); NITRITE,URINE NEGATIVE (NEGATIVE); PROTEIN,URINE NEGATIVE (NEGATIVE); URINE SPECIFIC GRAVITY 1.012; UROBILINOGEN,URINE NEGATIVE mg/dL (<2.0)
[2018-04-05] MEDS ORDERED: CEPHALEXIN 500 MG CAPSULE PO ONE (16:04)
--- NOTE | 2018-04-05 16:58 | ER Document Report ---
ED General - General Chief Complaint: Back Injury Stated Complaint: BACK PAIN Time Seen by Provider: 04/05/18 14:06 Primary Care Provider: AURELIA CASAREZ MD [Primary Care Provider] - Follow up as needed TRAVEL OUTSIDE OF THE [place] IN LAST 30 DAYS: No - HPI Notes: Patient presents to the emergency department for evaluation of back pain. She states is been ongoing for about a month. She states is been gradually getting worse. On Monday she slid from a sitting position. She states that since then she believes her back pain has been worse. She also notes that she has had some dysuria. She states she has been cold when everyone else has been warm. She has nausea and vomiting on occasion when she takes her medications, this is not a new problem for her. She states she is still eating and drinking. She is still urinating. No fabian fevers. - Related Data Allergies/Adverse Reactions: ciprofloxacin [From Cipro] Allergy (Verified 08/08/16 21:23) lisinopril [Lisinopril] Allergy (Verified 07/06/16 16:01) Sulfa (Sulfonamide Antibiotics) Allergy (Verified 08/08/16 21:23) naproxen sodium [From Aleve] Adverse Reaction (Verified 07/06/16 16:01) Chest pain Past Medical History - General Information source: Patient - Social History Smoking Status: Never Smoker Family History: Malignancy - Mother passed from ovarian cancer Patient has suicidal ideation: No Patient has homicidal ideation: No - Past Medical History Cardiac Medical History: Reports: Hx Hypercholesterolemia, Hx Hypertension Pulmonary Medical History: Reports: Hx Asthma Endocrine Medical History: Reports: Hx Diabetes Mellitus Type 2 Renal/ Medical History: Denies: Hx Peritoneal Dialysis GI Medical History: Reports: Hx Gastroesophageal Reflux Disease Musculoskeletal Medical History: Reports Hx Arthritis - OA Psychiatric Medical History: Denies: Hx Depression Past Surgical History: Reports: Hx Orthopedic Surgery - Immunizations Hx Diphtheria, Pertussis, Tetanus Vaccination: Yes - unk Review of Systems - Review of Systems Constitutional: Chills EENT: No symptoms reported Cardiovascular: No symptoms reported Respiratory: No symptoms reported Gastrointestinal: See HPI Genitourinary: See HPI Musculoskeletal: See HPI Skin: No symptoms reported Neurological/Psychological: No symptoms reported Physical Exam - Vital signs Notes: Temperature 98 F orally, blood pressure 141/60, pulse 82, respirations 15 and nonlabored, O2 sat 96% on room air - Notes Notes: Vital signs reviewed, please refer to chart. Patient is normocephalic, atraumatic. Pupils equal round, reactive to light. Neck is supple without meningismus. Heart is regular rate and rhythm. Lungs are clear to auscultation bilaterally. Abdomen is soft, nontender, normoactive bowel sounds throughout. No costovertebral angle tenderness. Extremities without cyanosis, clubbing. No posterior calf tenderness. Peripheral pulses are equal. Skin is warm and dry. Patient is awake, alert, neurological exam is nonfocal. Examination of the spine yields mild midline tenderness at the upper lumbar spine. Negative straight leg raise bilaterally. Strength is mildly diminished but symmetrical at plus 4 out of 5. Patellar and Achilles reflexes are diminished bilaterally. Sensation is intact. Course - Re-evaluation Re-evalutation: 04/05/18 16:56 Patient presents emergency department for evaluation of back pain. She does have associated dysuria and chills. Her vital signs are not worrisome for a septic picture at this time. She states she is still eating and drinking. She has no red flag symptoms for her back pain. Urinalysis did reveal large leukocyte esterase. Given her symptoms we will treat her for UTI. I reviewed prior cultures. Unfortunately she is allergic to Cipro and sulfa. We will medicate her here with Keflex and send her with a prescription for same. Her CT scan did reveal a transverse process fracture. Here in bed she had absolutely no pain. She states her pain was maintained well with Tylenol at home. I will have the patient continue to take Tylenol. She is to follow-up with her primary care physician next week, return to the emergency department with worsening or new concerning symptoms of any sort. - Laboratory Laboratory results interpreted by me: 04/05/18 15:28 Ur Leukocyte Esterase LARGE H Urine Ascorbic Acid 20 H - Diagnostic Test Radiology reviewed: Reports reviewed - Multiple chronic appearing findings. Acute right transverse process fracture of L1 noted. Discharge - Discharge Clinical Impression: Urinary tract infection Lumbar transverse process fracture Qualifiers: Encounter type: initial encounter Condition: Stable Disposition: HOME, SELF-CARE Instructions: Urinary Tract Infection ([facility]), Transverse Process Fracture ([facility]) Additional Instructions: Take all the antibiotics as prescribed. Tylenol as needed for pain. Follow-up with your doctor next week. If you develop worsening or new concerning symptoms of any sort, return immediately to the emergency department for reevaluation. Referrals: AURELIA CASAREZ MD [Primary Care Provider] - Follow up as needed
[2018-04-05 17:40] VITALS: BP 112/78
== END 2018-04-05 17:41 | disposition home or self-care (01) ==
LOC: ER 13:55
DX: N39.0 Urinary tract infection, site not specified (principal); S32.018A Other fracture of first lumbar vertebra, initial encounter for closed fracture; W08.XXXA Fall from other furniture, initial encounter; Y92.009 Unspecified place in unspecified non-institutional (private) residence as the place of occurrence of the external cause; E78.00 Pure hypercholesterolemia, unspecified; I10 Essential (primary) hypertension; E11.9 Type 2 diabetes mellitus without complications; K21.9 Gastro-esophageal reflux disease without esophagitis; Z88.3 Allergy status to other anti-infective agents; Z88.2 Allergy status to sulfonamides
CPT/HCPCS: 99284; 81001; 72131; A9270

== ENCOUNTER → 2018-05-04 | Outpatient (CLI) | payer MEDICARE, BC ==
[2018-05-04 13:05] LABS: A TYPE INFLUENZA AG NEGATIVE (NEGATIVE); B INFLUENZA AG NEGATIVE (NEGATIVE)
--- NOTE | 2018-05-04 13:47 | RADIOLOGY REPORT (SQ) ---
EXAM DESCRIPTION: CHEST PA/LATERAL COMPLETED DATE/TIME: 05/04/2018 12:42 pm REASON FOR STUDY: ACUTE UPPER RESPIRATORY INFECTION, UNSPECIFIED COMPARISON: 02/22/2018 EXAM PARAMETERS: NUMBER OF VIEWS: two views TECHNIQUE: Digital Frontal and Lateral radiographic views of the chest acquired. RADIATION DOSE: NA LIMITATIONS: none FINDINGS: LUNGS AND PLEURA: Bilateral interstitial airspace disease remains with small bilateral ple ural effusions. Findings have progressed from prior study. Suspect this represents interstitial alicia ma with some underlying interstitial fibrosis. MEDIASTINUM AND HILAR STRUCTURES: No masses or contour abnormalities. HEART AND VASCULAR STRUCTURES: Stable in appearance. BONES: No acute findings. HARDWARE: None in the chest. OTHER: No other significant finding. IMPRESSION: Findings are consistent with vascular congestion increased from prior study. TECHNICAL DOCUMENTATION: JOB ID: [id number] [employer]- All Rights Reserved Reading location - IP/workstation name: [email or web address]
== END ==
LOC: OD 12:12
PROVIDERS: ATTEND Family Medicine Geriatric Medicine
DX: J45.901 Unspecified asthma with (acute) exacerbation (principal); J20.9 Acute bronchitis, unspecified
CPT/HCPCS: 71046; 87804

== ENCOUNTER → 2018-05-14 | Outpatient (CLI) | payer MEDICARE, BC ==
--- NOTE | 2018-05-15 09:49 | XCELERA REPORT ---
[address] [address] Transthoracic Echocardiogram Report Name: KAYLENE BENDER Age: 88 yrs Gender: Female : 1930 Patient Status: Outpatient Patient Location: Study Date: 05/14/2018 01:23 PM Height: 61 in Weight: 155 lb BSA: 1.7 m2 Procedure: A complete two-dimensional transthoracic echocardiogram was performed (2D, M-mode, spectral and color flow Doppler). The study was technically adequate with some images being suboptimal in quality. Reason For Study: SOB Ordering Physician: POLLO PEARL Performed By: Allan Davis Interpretation Summary The left ventricular ejection fraction is normal. There is borderline concentric left ventricular hypertrophy. The left ventricle is grossly normal size. Doppler measurements suggest pseudonormalized left ventricular relaxation, which is associated with grade II/IV or mild to moderate diastolic dysfunction Wall motion cannot be accurately commented on, but no definite regional wall motion abnormalities noted. Borderline right ventricular enlargement. The right ventricular systolic function is normal. The right atrium is normal in size The left atrium is mildly dilated. There is no mitral valve stenosis. There is a mild amount of mitral regurgitation There is mild aortic stenosis There is a peak gradient of 20 mm of Hg. There is a trace amount of aortic regurgitation There is a mild amount of tricuspid regurgitation There is mild pulmonary hypertension by echo Right ventricular systolic pressure is estimated to be elevated at 40-50mmHg. The aortic root is not well visualized but is probably normal size. The inferior vena cava appeared normal and decreased < 50% with respiration (RAP 10-15 mmHg) There is no pericardial effusion. MMode/2D Measurements & Calculations RVDd: 3.1 cm LVIDd: 5.0 cm FS: 39.9 % Ao root diam: 2.8 cm IVSd: 0.76 cm LVIDs: 3.0 cm EDV(Teich): 118.6 ml Ao root area: 6.1 cm2 LVPWd: 0.83 cm ESV(Teich): 35.3 ml LA dimension: 3.7 cm EF(Teich): 70.2 % LVOT diam: 1.9 cm LVOT area: 2.8 cm2 Doppler Measurements & Calculations MV E max valreie: MV P1/2t max valerie: Ao V2 max: LV V1 max P.6 cm/sec 118.9 cm/sec 212.7 cm/sec 6.4 mmHg MV A max valerie: MV P1/2t: 48.9 msec Ao max PG: LV V1 mean P.6 cm/sec MVA(P1/2t): 4.5 cm2 18.2 mmHg 3.2 mmHg MV E/A: 1.2 MV dec slope: Ao V2 mean: LV V1 max: 157.1 cm/sec 126.1 cm/sec 711.9 cm/sec2 Ao mean PG: LV V1 mean: MV dec time: 0.14 sec 11.1 mmHg 85.0 cm/sec Ao V2 VTI: 53.9 cm LV V1 VTI: 31.1 cm TIFFANY(I,D): 1.6 cm2 TIFFANY(V,D): 1.7 cm2 SV(LVOT): 87.4 ml PA V2 max: PI end-d valerie: TR max valerie: 85.0 cm/sec 103.2 cm/sec 316.7 cm/sec PA max P.9 mmHg TR max P.1 mmHg MV P1/2t-pr_phl: 48.9 msec Left Ventricle The left ventricle is grossly normal size. There is borderline concentric left ventricular hypertrophy. The left ventricular ejection fraction is normal. Doppler measurements suggest pseudonormalized left ventricular relaxation, which is associated with grade II/IV or mild to moderate diastolic dysfunction. Wall motion cannot be accurately commented on, but no definite regional wall motion abnormalities noted. Right Ventricle Borderline right ventricular enlargement. There is normal right ventricular wall thickness. The right ventricular systolic function is normal. Atria The right atrium is normal in size. The left atrium is mildly dilated. Interarterial septum not well visualized and not well dopplered. Cannot comment on ASD/PFO presence. Mitral Valve The mitral valve leaflets are sclerotic, but show no functional abnormalities. There is no mitral valve stenosis. There is a mild amount of mitral regurgitation. Aortic Valve The aortic valve is not well visualized secondary to technical limitations. There is mild aortic stenosis. There is a peak gradient of 20 mm of Hg. There is a trace amount of aortic regurgitation. Tricuspid Valve The tricuspid valve is not well visualized, but is grossly normal. There is no tricuspid stenosis. There is a mild amount of tricuspid regurgitation. There is mild pulmonary hypertension by echo. Right ventricular systolic pressure is estimated to be elevated at 40-50mmHg. Pulmonic Valve The pulmonic valve is not well visualized. Great Vessels The aortic root is not well visualized but is probably normal size. The inferior vena cava appeared normal and decreased < 50% with respiration (RAP 10-15 mmHg). Effusions There is no pericardial effusion. : POLLO PEARL > Dotty Ortiz
== END ==
LOC: SP 12:38
PROVIDERS: ATTEND Family Medicine Geriatric Medicine
DX: R06.02 Shortness of breath (principal)
CPT/HCPCS: 93306

== ENCOUNTER → 2018-06-08 | Outpatient (CLI) | payer MEDICARE, BC ==
[2018-06-08 09:02] LABS: ABSOLUTE BASOPHILS # (AUTO) 0.1 10^3/uL (0.0-0.2); ABSOLUTE EOSINOPHILS # (AUTO) 0.3 10^3/uL (0.0-0.6); ABSOLUTE LYMPHOCYTES (AUTO) 2.5 10^3/uL (0.5-4.7); ABSOLUTE MONOCYTES (AUTO) 1.1 10^3/uL (0.1-1.4); ABSOLUTE NEUT (AUTO) 3.1 10^3/uL (1.7-8.2); EOSINOPHILS % (AUTO) 4.3 % (0-6); HEMATOCRIT 40.2 % (36.0-47.0); HEMOGLOBIN 13.5 g/dL (12.0-15.5); LYMPHOCYTES % (AUTO) 34.6 % (13-45); MEAN CORPUSCULAR HEMOGLOBIN 32.4 pg (27.0-33.4); MEAN CORPUSCULAR HGB CONC 33.6 g/dL (32.0-36.0); MEAN CORPUSCULAR VOLUME 96 fl (80-97); MONOCYTES % (AUTO) 15.8 % (3-13); PLATELET COUNT 212 10^3/uL (150-450); RED BLOOD COUNT 4.17 10^6/uL (3.72-5.28); RED CELL DISTRIBUTION WIDTH 16.5 % (11.5-14.0); SEGMENTED NEUTROPHILS % (AUTO) 43.3 % (42-78); TOTAL CELLS COUNTED % (AUTO) 100 %; WHITE BLOOD COUNT 7.1 10^3/uL (4.0-10.5)
[2018-06-08 09:25] LABS: ALANINE AMINOTRANSFERASE 39 U/L (9-52); ALBUMIN 3.1 g/dL (3.5-5.0); ALKALINE PHOSPHATASE 194 U/L (38-126); ANION GAP 8 (5-19); ASPARTATE AMINO TRANSFERASE 65 U/L (14-36); BILIRUBIN,DIRECT 0.4 mg/dL (0.0-0.4); BILIRUBIN,TOTAL 1.1 mg/dL (0.2-1.3); BLOOD UREA NITROGEN 7 mg/dL (7-20); CARBON DIOXIDE 33 mmol/L (22-30); CHLORIDE 97 mmol/L (98-107); CHOLESTEROL 134.82 mg/dL (0-200); GLUCOSE 130 mg/dL (75-110); POTASSIUM 3.6 mmol/L (3.6-5.0); TOTAL PROTEIN 7.3 g/dL (6.3-8.2); TRIGLYCERIDES 126 mg/dL (<150)
[2018-06-08 09:36] LABS: DIRECT LDL 80 mg/dL (<100)
== END ==
LOC: OD 08:23
PROVIDERS: ATTEND Internal Medicine
DX: I12.9 Hypertensive chronic kidney disease with stage 1 through stage 4 chronic kidney disease, or unspecified chronic kidney disease (principal); N18.3 Chronic kidney disease, stage 3 (moderate); R53.83 Other fatigue; E78.5 Hyperlipidemia, unspecified; E11.22 Type 2 diabetes mellitus with diabetic chronic kidney disease
CPT/HCPCS: 36415; 80053; 80061; 83036; 83735; 84443; 85025

== ENCOUNTER 2020-02-04 02:56 | Inpatient (IN) | payer OTHER, MEDICARE, BC ==
--- NOTE | 2020-02-04 04:04 | ER Document Report ---
ED Fall - General Chief Complaint: Fall Stated Complaint: HIP PAIN Time Seen by Provider: 02/04/20 03:54 TRAVEL OUTSIDE OF THE [place] IN LAST 30 DAYS: No - HPI Notes: Patient is an 89-year-old female with a past medical history of CHF who presents with a fall and right hip pain. Fall happened just prior to arrival. Patient states she was trying to transfer from the bed to the chair and fell onto her ri ght hip. She did not hit her head. She denies any syncope. Patient complains of pain to her right hip. Pain is worse with movement. She denies any abdominal pain or back pain. No chest pain or shortness of breath. She states she takes daily aspirin. From reports, patient is on hospice for CHF. - Related data Allergies/Adverse Reactions: ciprofloxacin [From Cipro] Allergy (Verified 08/08/16 21:23) lisinopril [Lisinopril] Allergy (Verified 07/06/16 16:01) Sulfa (Sulfonamide Antibiotics) Allergy (Verified 08/08/16 21:23) naproxen sodium [From Aleve] Adverse Reaction (Verified 07/06/16 16:01) Chest pain Home Medications: Amaryl. Aspirin. Lasix. Metoprolol. Omeprazole. Potassium Chloride. Singulair. Spiriva Respimat. Symbicort. Xalatan. Zyrtec Past Medical History - General Information source: Patient, Emergency Med Personnel - Social History Smoking Status: Never Smoker Family History: Malignancy - Mother passed from ovarian cancer - Past Medical History Cardiac Medical History: Reports: Hx Hypercholesterolemia, Hx Hypertension Pulmonary Medical History: Reports: Hx Asthma Endocrine Medical History: Reports: Hx Diabetes Mellitus Type 2 Renal/ Medical History: Denies: Hx Peritoneal Dialysis GI Medical History: Reports: Hx Gastroesophageal Reflux Disease Musculoskeletal Medical History: Reports Hx Arthritis - OA Psychiatric Medical History: Denies: Hx Depression Past Surgical History: Reports: Hx Orthopedic Surgery - Immunizations Hx Diphtheria, Pertussis, Tetanus Vaccination: Yes - unk Review of Systems - Review of Systems Notes: CONSTITUTIONAL: No fever, fatigue or weight loss. SKIN: No rash. CARDIOVASCULAR: No chest pain. RESPIRATORY: No cough, shortness of breath, congestion, or wheezing. GASTROINTESTINAL: No abdominal pain, nausea, vomiting MUSCULOSKELETAL: Positive for right hip pain. NEUROLOGIC: No seizures. No headache, focal weakness or sensory changes. HEMATOLOGIC: No unusual bruising or bleeding. PSYCHIATRIC: No depression or anxiety. Physical Exam - Vital signs Vitals: Resp Pulse Ox 13 92 02/04/20 03:10 02/04/20 03:10 - General General appearance: Appears well In distress: Mild Notes: VITAL SIGNS: Within normal limits. GENERAL: No acute distress, non-toxic appearance. Uncomfortable due to hip pain. HEAD: Normal with no signs of head trauma. EYES: Conjunctiva normal, no discharge. EARS: Hearing grossly intact. NECK: Normal range of motion, no tenderness, supple, no lymphadenopathy, No adenopathy, no JVD. CHEST: Clear breath sounds bilaterally. No wheezes, rales, or rhonchi. CARDIAC: Regular rate and rhythm. VASCULAR: Strong dorsalis pedis pulse on the right. Chronic edema bilaterally. ABDOMEN: Normal and soft with no tenderness. GENITOURINARY: Normal, No tenderness MUSCULOSKELETAL: Range of motion of right hip limited due to pain. NEUROLOGICAL: Alert and oriented x 3. No focal sensory or strength deficits. Speech normal. Follows commands appropriately. PSYCHIATRIC: Normal Affect, judgement and mood. SKIN: Normal appearance with no rashes or lesions. Course - Re-evaluation Re-evalutation: 02/04/20 07:08 Patient has a hip fracture. I talked with Dr. Vance from orthopedic surgery. Patient will be admitted to the hospitalist service. She is alert and oriented and is denying hitting her head. 02/05/20 06:03 - Vital Signs Vital signs: Temp Pulse Resp BP Pulse Ox 97.7 F 80 18 117/39 L 93 02/04/20 23:54 02/04/20 23:54 02/04/20 23:54 02/04/20 23:54 02/04/20 23:54 - Laboratory Results Result Diagrams: 02/04/20 03:07 02/04/20 03:07 Laboratory Results Interpreted: 02/04/20 02/04/20 02/04/20 03:07 03:07 03:07 RBC 3.25 L Hct 34.1 L MCV 105 H MCH 37.1 H RDW 14.8 H PT 18.7 H Sodium 135.4 L Anion Gap 4 L Glucose 123 H Calcium 8.0 L Total Bilirubin 2.3 H Direct Bilirubin 0.7 H AST 53 H Alkaline Phosphatase 362 H Albumin 2.6 L Critical Laboratory Results Reviewed: No Critical Results - Radiology Results Critical Radiology Results Reviewed: Yes Attending or Supervising Physician who Reviewed Radiology: FLOR WALKER - EKG Interpretation by Mi EKG shows normal: Sinus rhythm Rate: Normal Rhythm: NSR Heart block present: 1st Degree When compared to previous EKG there are: Previous EKG unavailable Additional EKG results interpreted by me: 02/04/20 06:36 Sinus rhythm at a rate of 70. QTc 475. No acute ST changes. No previous EKG available. Discharge - Discharge Clinical Impression: Right hip pain Closed right hip fracture Qualifiers: Encounter type: initial encounter Qualified Code(s): S72.001A - Fracture of unspecified part of neck of right femur, initial encounter for closed fracture Condition: Stable Disposition: ADMITTED INPATIENT Admitting Provider: Saira (Hospitalist) Unit Admitted: Medical Floor
[2020-02-04] MEDS ORDERED: MORPHINE SULFATE 10 MG/ML INJ IV ONE ×2 (04:40→06:32)
[2020-02-04 04:51] LABS: ABSOLUTE BASOPHILS # (AUTO) 0.1 10^3/uL (0.0-0.2); ABSOLUTE EOSINOPHILS # (AUTO) 0.2 10^3/uL (0.0-0.6); ABSOLUTE LYMPHOCYTES (AUTO) 2.4 10^3/uL (0.5-4.7); ABSOLUTE MONOCYTES (AUTO) 0.9 10^3/uL (0.1-1.4); ABSOLUTE NEUT (AUTO) 5.4 10^3/uL (1.7-8.2); BASOPHILS % (AUTO) 1.1 % (0-2); EOSINOPHILS % (AUTO) 2.2 % (0-6); HEMATOCRIT 34.1 % (36.0-47.0); LYMPHOCYTES % (AUTO) 26.4 % (13-45); MEAN CORPUSCULAR HEMOGLOBIN 37.1 pg (27.0-33.4); MEAN CORPUSCULAR HGB CONC 35.3 g/dL (32.0-36.0); MEAN CORPUSCULAR VOLUME 105 fl (80-97); MONOCYTES % (AUTO) 10.2 % (3-13); PLATELET COUNT 172 10^3/uL (150-450); RED BLOOD COUNT 3.25 10^6/uL (3.72-5.28); RED CELL DISTRIBUTION WIDTH 14.8 % (11.5-14.0); SEGMENTED NEUTROPHILS % (AUTO) 60.1 % (42-78); TOTAL CELLS COUNTED % (AUTO) 100 %
[2020-02-04 05:19] LABS: ALBUMIN 2.6 g/dL (3.5-5.0); ALKALINE PHOSPHATASE 362 U/L (38-126); ASPARTATE AMINO TRANSFERASE 53 U/L (14-36); BILIRUBIN,DIRECT 0.7 mg/dL (0.0-0.4); BILIRUBIN,TOTAL 2.3 mg/dL (0.2-1.3); BLOOD UREA NITROGEN 10 mg/dL (7-20); GLUCOSE 123 mg/dL (75-110); POTASSIUM 3.7 mmol/L (3.6-5.0); TOTAL PROTEIN 7.3 g/dL (6.3-8.2)
[2020-02-04 05:24] LABS: CARBON DIOXIDE 30 mmol/L (22-30); CHLORIDE 102 mmol/L (98-107)
[2020-02-04 05:29] LABS: ANION GAP 4 (5-19)
--- NOTE | 2020-02-04 06:07 | RADIOLOGY REPORT (SQ) ---
Pelvis and right hip x-ray three views on 02/04/2020 CLINICAL INDICATION: Pain after fall COMPARISON: 08/08/2016 FINDINGS: Extensive vascular calcifications are noted. There is a compression nail and intramedullary anastasiya fixating the prior left intertrochanteric femur fracture. There is an acute, displaced and angulated right subcapital femoral neck fracture with proximal and lateral displacement with rotation of the distal fracture fragment. The hips are well located. The SI joints are well aligned. IMPRESSION: Acute right subcapital femoral neck fracture.
--- NOTE | 2020-02-04 06:08 | RADIOLOGY REPORT (SQ) ---
CHEST X-RAY 1 VIEW on 02/04/2020 at 5:04 AM CLINICAL INDICATION: Fall, pre-op right hip fracture fixation COMPARISON: 05/04/2018 FINDINGS: Mild cardiomegaly is noted. There is mild elevation of the right hemidiaphragm. There is minimal linear atelectasis or scarring in the lower lungs. Lungs are otherwise clear. Hilar and mediastinal contours are within normal limits. Vascular calcification is noted in the aorta. There is an old left proximal humerus fracture. IMPRESSION: No acute disease.
--- NOTE | 2020-02-04 06:09 | RADIOLOGY REPORT (SQ) ---
EXAM: XR Right Femur, 2 Views EXAM DATE/TIME: 02/04/2020 05:01 CLINICAL HISTORY: The patient is 89 years old and is Female; fall TECHNIQUE: Frontal and lateral views of the right femur. COMPARISON: Pelvis and hip radiographs from 08/08/2016 FINDINGS: BONES/JOINTS: There is shortening of the right proximal femur, indicating underlying femoral neck fracture. No additional acute fractures visualized. The right hip joint is well-maintained. 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 No dislocation. SOFT TISSUES: There is apparent soft tissue edema about the thigh and knee. VASCULATURE: Vascular calcifications noted. IMPRESSION: 1. Right femoral neck fracture. 2. Soft tissue edema about the thigh and knee.
[2020-02-04 07:29] LABS: INTERNATIONAL RATION (INR) 1.55; PROTHROMBIN TIME 18.7 SEC (11.4-15.4)
--- NOTE | 2020-02-04 07:56 | PDOC CONSULTATION ---
Consultation Consult Date: 02/04/20 Provider Consulted: CAROL LOCO History of Present Illness Admission Date/PCP: 02/04/20 06:50 GARY VILLALOBOS MD Patient complains of: Right Hip Pain History of Present Illness: KAYLENE BENDER is a 89 year old female who lives at [facility] sustained a fall onto her right hip. Patient was attempting to transfer to a chair when she sustained a fall. She was unable weight-bear and had notable pain. Was brought to emergency room where x-rays demonstrated femoral neck fracture. According the patient pain is worse with any attempted motion. Denies numbness or tingling. Pain 5/5. Past Medical History Cardiac Medical History: Reports: Hyperlipidema, Hypertension Pulmonary Medical History: Reports: Asthma Endocrine Medical History: Reports: Diabetes Mellitus Type 2 GI Medical History: Reports: Gastroesophageal Reflux Disease Musculoskeltal Medical History: Reports: Arthritis - OA Psychiatric Medical History: Denies: Depression Past Surgical History Past Surgical History: Reports: Orthopedic Surgery Social History Smoking Status: Never Smoker Frequency of Alcohol Use: None Hx Recreational Drug Use: No Hx Prescription Drug Abuse: No Family History Family History: Malignancy - Mother passed from ovarian cancer Parental Family History Reviewed: No Children Family History Reviewed: No Sibling(s) Family History Reviewed.: No Medication/Allergy Home Medications: Calcium Citrate/Vitamin D3 [Calcium Cit 200 mg-D3 125 Unit] 1 each PO DAILY 02/09/11 Fluvastatin Sodium [Lescol] 40 mg PO QHS 02/09/11 Hydrochlorothiazide [Hydrodiuril 25 mg Tablet] 25 mg PO QAM 02/09/11 Metformin HCl [Glucophage 500 mg Tablet] 1,000 mg PO BID 02/09/11 Montelukast Sodium [Singulair 10 mg Tablet] 10 mg PO QHS 02/09/11 Cranberry [Cranberry 1000 mg Capsule] 1,000 mg PO DAILY 08/08/16 Metoprolol Succinate [Toprol Xl] 100 mg PO DAILY 08/08/16 Acetaminophen [Tylenol] 325 mg PO Q4HP PRN 02/17/18 Ascorbic Acid [Vitamin C] 1,000 mg PO DAILY 02/17/18 Aspirin [Ecotrin] 81 mg PO DAILY PRN 02/17/18 Budesonide/Formoterol Fumarate [Symbicort HFA 160-4.5 mcg Inhaler 6 gm] 1 puff IN BID 02/17/18 Cetirizine HCl [Zyrtec 10 mg Tablet] 10 mg PO DAILY 02/17/18 Latanoprost [Xalatan] 1 drop OU QHS 02/17/18 Meloxicam [Mobic] 7.5 mg PO DAILY 02/17/18 Omeprazole 20 mg PO DAILY 02/17/18 Tiotropium [place] [Spiriva Handihaler 5 Cap/Kit (18 Mcg/Cap)] 1 puff IN DAILY 02/17/18 Acetaminophen [Tylenol 325 mg Tablet] 650 mg PO Q4HP PRN #20 tablet 02/23/18 Amlodipine Besylate [Norvasc 5 mg Tablet] 5 mg PO DAILY #30 tablet 02/23/18 Benzonatate [Tessalon Perles 100 mg Capsule] 100 mg PO Q8 #30 capsule 02/23/18 Doxycycline Hyclate [Vibramycin 100 mg Tablet] 100 mg PO Q12 #10 tablet 02/23/18 Glimepiride [Amaryl 1 mg Tablet] 1 mg PO QAM #30 tablet 02/23/18 Prednisone [Deltasone 10 mg Tablet] 10 mg PO BID #60 tablet 02/23/18 Cephalexin Monohydrate [Keflex 500 mg Capsule] 500 mg PO Q6H #28 capsule 04/05/18 Allergies/Adverse Reactions: ciprofloxacin [From Cipro] Allergy (Verified 08/08/16 21:23) lisinopril [Lisinopril] Allergy (Verified 07/06/16 16:01) Sulfa (Sulfonamide Antibiotics) Allergy (Verified 08/08/16 21:23) naproxen sodium [From Aleve] Adverse Reaction (Verified 07/06/16 16:01) Chest pain Review of Systems Constitutional: ABSENT: chills, fever(s), headache(s), weight gain, weight loss Eyes: ABSENT: visual disturbances Ears: ABSENT: hearing changes Cardiovascular: ABSENT: chest pain, dyspnea on exertion, edema, orthropnea, palpitations Respiratory: PRESENT: other - History of CHF. ABSENT: cough, hemoptysis Gastrointestinal: ABSENT: abdominal pain, constipation, diarrhea, hematemesis, hematochezia, nausea, vomiting Genitourinary: ABSENT: dysuria, hematuria Musculoskeletal: PRESENT: as per HPI Integumentary: ABSENT: rash, wounds Neurological: ABSENT: abnormal gait, abnormal speech, confusion, dizziness, focal weakness, syncope Psychiatric: ABSENT: anxiety, depression, homidical ideation, suicidal ideation Endocrine: ABSENT: cold intolerance, heat intolerance, menstrual abnormalities, polydipsia, polyuria Hematologic/Lymphatic: ABSENT: easy bleeding, easy bruising, lymphadenopathy Physical Exam Vital Signs: Temp Pulse Resp BP Pulse Ox 97.7 F 70 12 143/56 H 96 02/04/20 06:39 02/04/20 03:27 02/04/20 06:00 02/04/20 06:00 02/04/20 06:00 Intake & Output 02/03/20 02/04/20 02/05/20 06:59 06:59 06:59 Weight 79.7 kg General appearance: PRESENT: no acute distress, well-developed, well-nourished Head exam: PRESENT: atraumatic, normocephalic Eye exam: PRESENT: conjunctiva pink, EOMI, PERRLA. ABSENT: scleral icterus Ear exam: PRESENT: normal external ear exam Mouth exam: PRESENT: moist, tongue midline Neck exam: PRESENT: full ROM. ABSENT: carotid bruit, JVD, lymphadenopathy, thyromegaly Respiratory exam: PRESENT: unlabored Cardiovascular exam: PRESENT: RRR. ABSENT: diastolic murmur, rubs, systolic murmur Pulses: PRESENT: normal dorsalis pedis pul, +2 pedal pulses bilateral Vascular exam: PRESENT: normal capillary refill GI/Abdominal exam: PRESENT: normal bowel sounds, soft. ABSENT: distended, guarding, mass, organolmegaly, rebound, tenderness Rectal exam: PRESENT: deferred Musculoskeletal exam: PRESENT: other - Right hip: Short/external rotated. Positive logroll. Moderate thigh swelling without change, intact plantarflexion/dorsiflexion. No sensory deficits. No calf tenderness. +2 pitting edema Neurological exam: PRESENT: alert, awake, oriented to person, oriented to place, oriented to time, oriented to situation, CN II-XII grossly intact. ABSENT: motor sensory deficit Psychiatric exam: PRESENT: appropriate affect, normal mood. ABSENT: homicidal ideation, suicidal ideation Skin exam: PRESENT: dry, intact, warm. ABSENT: cyanosis, rash Results Laboratory Results: 02/04/20 03:07 02/04/20 03:07 02/04/20 02/04/20 03:07 03:07 WBC 9.0 RBC 3.25 L Hgb 12.0 Hct 34.1 L MCV 105 H MCH 37.1 H MCHC 35.3 RDW 14.8 H Plt Count 172 Seg Neutrophils % 60.1 Sodium 135.4 L Potassium 3.7 Chloride 102 Carbon Dioxide 30 Anion Gap 4 L BUN 10 Creatinine 0.60 Est GFR ( Amer) > 60 Glucose 123 H Calcium 8.0 L Total Bilirubin 2.3 H AST 53 H Alkaline Phosphatase 362 H Total Protein 7.3 Albumin 2.6 L 02/04/20 03:07 Troponin I < 0.012 Impressions: Chest X-Ray 02/04/20 04:02 IMPRESSION: No acute disease. Femur X-Ray 02/04/20 04:02 IMPRESSION: 1. Right femoral neck fracture. 2. Soft tissue edema about the thigh and knee. Hip/Pelvis X-Ray 02/04/20 04:02 IMPRESSION: Acute right subcapital femoral neck fracture. Status: Image reviewed by me - I have reviewed patient's radiographs consistent with right displaced femoral neck fracture Assessment & Plan - Diagnosis (1) Displaced fracture of right femoral neck Is this a current diagnosis for this admission?: Yes Plan: Patient sustained a right displaced femoral neck fracture. She currently is on hospice for CHF but given her prior ambulatory status and patient's high risk for worsening respiratory condition if she is transfers only and bedridden. Operative intervention would likely improve the patient's quality of life specifically with the ability to possibly ambulate. After discussing these options we will discuss with the family to determine if patient would like to p roceed with operative intervention which would include right hip hemiarthroplasty. In the meantime patient will be admitted to the medical service and medically optimized for operative intervention.
--- NOTE | 2020-02-04 08:42 | Progress Note ---
Provider Note Provider Note: I have discussed the case with the patient's son Paramjit Ge who relayed the message to patient's daughters as well. Decision was made to proceed with operative intervention. Once patient is medically optimized we will proceed with operative treatment. Plan will be for operative intervention on 02/05/2020 or 02/06/2020. Risks have been explained including anesthetic complications, excessive bleeding, infection, injury to surrounding nerves, vessels and tendons, bruising, healing difficulties, scar formation, hardware complication, posttraumatic arthritis and any unforseen complication. They verbalized understanding consented for right hip hemiarthroplasty
[2020-02-04] MEDS ORDERED: GLUCAGON,HUMAN RECOMB 1 MG INJ SUBCUT PRN (09:29)
[2020-02-04] MEDS ORDERED: ONDANSETRON 4 MG TAB.RAPDIS PO PRN (09:29)
[2020-02-04] MEDS ORDERED: DEXTROSE 40% GEL 15 GM TUBE PO PRN ×4 (09:29→09:47)
[2020-02-04] MEDS ORDERED: MORPHINE SULFATE 10 MG/ML INJ IV PRN (09:29)
[2020-02-04] MEDS ORDERED: DEXTROSE 50%-WATER 25 GM/50 ML DISP.SYRIN IV PRN ×4 (09:29→09:47)
[2020-02-04] MEDS ORDERED: GLUCAGON,HUMAN RECOMB 1 MG INJ IM PRN (09:47)
[2020-02-04] MEDS ORDERED: TRAMADOL HCL 50 MG TABLET PO SCH (10:00)
[2020-02-04] MEDS: ACETAMINOPHEN 325 MG TABLET PO SCH ×3 (11:01→18:40)
[2020-02-04] MEDS: PANTOPRAZOLE SODIUM 40 MG TABLET.DR PO SCH (11:02)
[2020-02-04] MEDS: POTASSIUM CHLORIDE 10 MEQ TABLET.ER PO SCH (11:02)
[2020-02-04] MEDS: FUROSEMIDE 40 MG TABLET PO SCH ×2 (11:02→18:40)
[2020-02-04] MEDS: METOPROLOL SUCCINATE 50 MG TAB.SR.24H PO SCH (11:02)
[2020-02-04] MEDS ORDERED: IPRATROPIUM/ALBUTEROL 0.5-2.5 MG/3 ML AMPUL NEB PRN (13:27)
[2020-02-04] MEDS ORDERED: (PENDING PHARMACY ID) (Tiotropium Bromide [Spiriva Respimat] 4 GM Mist.Inhal) IH SCH (13:30)
[2020-02-04] MEDS ORDERED: (PENDING PHARMACY ID) (Budesonide/Formoterol Fumarate 60 PUFF/6 GM Inhaler) IH SCH (13:30)
--- NOTE | 2020-02-04 13:38 | PDOC H&P ---
History of Present Illness Admission Date/PCP: 02/04/20 06:50 GARY VILLALOBOS MD Patient complains of: Right hip pain History of Present Illness: KAYLENE BENDER is a 89 year old female with history of CHF, diabetes, hypertension and GERD who presented to the emergency department earlier this morning from [facility] living facility with concerns regarding a fall and right hip pain. Patient states that she was trying to transfer from her bed to her chair when she fell landing on her right hip. Patient typically transfers with assistance. Pain exacerbated with movement. Denies numbness or tingling associated. Denies presyncope or syncope. Denies associated head trauma. Acute right femoral neck fracture noted on imaging completed in the ED. Dr. Vance, orthopedic surgery, was consulted. Plan for right hip hemiarthroplasty likely tomorrow. Hospitalist team consulted for evaluation and management of nonorthopedic related medical needs. Patient is unable to tell me her home medications. [facility] records obtained and reviewed with the patient in detail. Patient is a DNR on hospice for CHF. She takes 40 mg Lasix twice daily. She utilizes supplemental oxygen as needed, though per her report does not require often. On exam O2 sats greater than 95% on room air. Chest x-ray in the ED without acute findings. Patient denies chest pain, shortness of breath, orthopnea, PND. Reports chronic lower extremity swelling. Past Medical History Cardiac Medical History: Reports: Hyperlipidema, Hypertension Pulmonary Medical History: Reports: Asthma Endocrine Medical History: Reports: Diabetes Mellitus Type 2, Obesity GI Medical History: Reports: Gastroesophageal Reflux Disease Musculoskeltal Medical History: Reports: Arthritis - OA Psychiatric Medical History: Denies: Depression Past Surgical History Past Surgical History: Reports: Orthopedic Surgery Social History Information Source: Patient Lives with: [facility] - Assisted living facility Smoking Status: Never Smoker Electronic Cigarette use?: No Frequency of Alcohol Use: None Hx Recreational Drug Use: No Hx Prescription Drug Abuse: No - Advance Directive Resuscitation Status: Do Not Resuscitate Family History Family History: Malignancy - Mother passed from ovarian cancer Parental Family History Reviewed: Yes Children Family History Reviewed: Yes Sibling(s) Family History Reviewed.: Yes Medication/Allergy Home Medications: Montelukast Sodium [Singulair 10 mg Tablet] 10 mg PO QHS 02/09/11 Budesonide/Formoterol Fumarate [Symbicort HFA 160-4.5 mcg Inhaler 6 gm] 2 puff IH Q12 02/17/18 Cetirizine HCl [Zyrtec 10 mg Tablet] 10 mg PO DAILY 02/17/18 Latanoprost [Xalatan] 1 drop OU QHS 02/17/18 Omeprazole 20 mg PO DAILY 02/17/18 Glimepiride [Amaryl 1 mg Tablet] 1 mg PO QAM #30 tablet 02/23/18 Acetaminophen [Tylenol 325 mg Tablet] 650 mg PO Q6HP PRN MDD 3 GRAMS 02/04/20 Aspirin [Ecotrin 81 mg EC Tablet] 81 mg PO DAILY 02/04/20 Bacitracin Zinc [Bacitracin Oint 15 gm] 1 applic TP DAILY 02/04/20 Furosemide [Lasix 40 mg Tablet] 40 mg PO BID 02/04/20 Hydrocortisone Acetate [Anusol-Hc] 25 mg RC Q12HP PRN 02/04/20 Lidocaine [Aspercreme Lidocaine] 1 patch TOP DAILY 02/04/20 Metoprolol Succinate [Toprol Xl 50 mg Tab.sr] 50 mg PO DAILY 02/04/20 Potassium Chloride [Klor-Con 10 Meq Tablet ER] 10 meq PO BID 02/04/20 Tiotropium [place] [Spiriva Respimat] 2 inh IH DAILY 02/04/20 Tramadol HCl [Ultram 50 mg Tablet] 50 mg PO Q6HP PRN 02/04/20 Allergies/Adverse Reactions: ciprofloxacin [From Cipro] Allergy (Verified 08/08/16 21:23) lisinopril [Lisinopril] Allergy (Verified 07/06/16 16:01) Sulfa (Sulfonamide Antibiotics) Allergy (Verified 08/08/16 21:23) naproxen sodium [From Aleve] Adverse Reaction (Verified 07/06/16 16:01) Chest pain Review of Systems Constitutional: ABSENT: anorexia, chills, fatigue, fever(s), night sweats, weakness Eyes: ABSENT: visual disturbances Nose, Mouth, and Throat: ABSENT: headache(s), vertigo Cardiovascular: ABSENT: chest pain, dyspnea on exertion, orthropnea, palpitations Respiratory: ABSENT: cough, dyspnea Gastrointestinal: ABSENT: abdominal pain, constipation, diarrhea, nausea, vomiting Genitourinary: ABSENT: difficulty urinating Musculoskeletal: PRESENT: as per HPI, other - Right hip pain Integumentary: ABSENT: rash Neurological: ABSENT: confusion, dizziness, numbness, paresthesias, syncope, weakness Psychiatric: ABSENT: anxiety, depression Hematologic/Lymphatic: ABSENT: easy bleeding Physical Exam Vital Signs: Temp Pulse Resp BP Pulse Ox 97.8 F 73 14 159/66 H 95 02/04/20 10:31 02/04/20 10:31 02/04/20 10:31 02/04/20 10:31 02/04/20 10:31 Intake & Output 02/03/20 02/04/20 02/05/20 06:59 06:59 06:59 Weight 79.7 kg General appearance: PRESENT: no acute distress, cooperative, obese Head exam: PRESENT: atraumatic, normocephalic Eye exam: PRESENT: conjunctival injection, EOMI. ABSENT: scleral icterus Mouth exam: PRESENT: moist, neck supple Neck exam: PRESENT: full ROM. ABSENT: JVD, lymphadenopathy, tenderness Respiratory exam: PRESENT: clear to auscultation anny, symmetrical, unlabored. ABSENT: decreased breath sounds, tachypnea Cardiovascular exam: PRESENT: RRR. ABSENT: diastolic murmur, systolic murmur Pulses: PRESENT: normal radial pulses, normal dorsalis pedis pul GI/Abdominal exam: PRESENT: normal bowel sounds, soft. ABSENT: distended, guarding, tenderness Rectal exam: PRESENT: deferred Extremities exam: PRESENT: +2 edema - Consistent with chronic lower extremity sw elling, other - Right hip. Shortened and externally rotated. Range of motion not evaluated secondary to pain. Neurological exam: PRESENT: alert, awake, oriented to person, oriented to place, oriented to time, oriented to situation, CN II-XII grossly intact. ABSENT: motor sensory deficit Psychiatric exam: PRESENT: appropriate affect, normal mood Skin exam: PRESENT: dry, intact, warm Results Laboratory Results: 02/04/20 03:07 02/04/20 03:07 02/04/20 02/04/20 02/04/20 03:07 03:07 07:36 WBC 9.0 RBC 3.25 L Hgb 12.0 Hct 34.1 L MCV 105 H MCH 37.1 H MCHC 35.3 RDW 14.8 H Plt Count 172 Seg Neutrophils % 60.1 Sodium 135.4 L Potassium 3.7 Chloride 102 Carbon Dioxide 30 Anion Gap 4 L BUN 10 Creatinine 0.60 Est GFR ( Amer) > 60 Glucose 123 H Calcium 8.0 L Total Bilirubin 2.3 H AST 53 H Alkaline Phosphatase 362 H Total Protein 7.3 Albumin 2.6 L Blood Type O POSITIVE Antibody Screen NEGATIVE 02/04/20 03:07 Troponin I < 0.012 Impressions: Chest X-Ray 02/04/20 04:02 IMPRESSION: No acute disease. Femur X-Ray 02/04/20 04:02 IMPRESSION: 1. Right femoral neck fracture. 2. Soft tissue edema about the thigh and knee. Hip/Pelvis X-Ray 02/04/20 04:02 IMPRESSION: Acute right subcapital femoral neck fracture. Assessment and Plan - Diagnosis (1) Congestive heart failure (CHF) Qualifiers: Heart failure chronicity: unspecified Is this a current diagnosis for this admission?: Yes Plan: NURSING HOME reports reviewed. Patient is on hospice for CHF. She utilizes 2 L supplemental O2 as needed. On Lasix twice daily. Denies shortness of breath, PND, orthopnea, edema. Chest x-ray without signs of acute exacerbation. Patient euvolemic, with clear lung sounds. O2 saturation greater than 95% on room air. (2) Diabetes mellitus Qualifiers: Diabetes mellitus type: type 2 Diabetes mellitus alf insulin use: without technician terminal and repeater use Diabetes mellitus complication status: without complication Qualified Code(s): E11.9 - Type 2 diabetes mellitus without complications Is this a current diagnosis for this admission?: Yes Plan: Holding oral medications while admitted. We will check A1c with a.m. lab work. Patient is placed on a consistent carb diet. Accu-Cheks before meals and at bedtime with Humalog for sliding scale coverage. Hypoglycemia protocol in place. (3) Hypertension Qualifiers: Hypertension type: essential hypertension Qualified Code(s): I10 - Essential (primary) hypertension Is this a current diagnosis for this admission?: Yes Plan: History of hypertension. Her medications include metoprolol 50 mg p.o. once daily. Continue home medications. Monitor blood pressure. (4) Asthmatic bronchitis Is this a current diagnosis for this admission?: Yes Plan: History of asthma for which she utilizes Spiriva and Symbicort daily. Lungs are clear to auscultation, chest x-ray without acute findings. Resume home therapy, utilize as needed duo nebs. (5) Displaced fracture of right femoral neck Is this a current diagnosis for this admission?: Yes Plan: Patient presents c/o right hip pain after fall. X-ray findings consistent with right femoral neck fracture. Dr. Alvarez, orthopedic surgery, consulted, evaluated patient, note reviewed in detail. Plan for right hip hemiarthroplasty. Scheduled Tylenol and tramadol for pain management. As needed morphine IV. Patient will be n.p.o. after midnight, in preparation for potential surgery. Revised cadiac risk index class II given history of CHF. At this time patient is determined to be medically stable for surgery. (6) Right hip pain Is this a current diagnosis for this admission?: Yes Plan: As above. - Time Time Spent with patient: 35 or more minutes Medications reviewed and adjusted accordingly: Yes Anticipated Discharge Disposition: Assisted Living with Home Health Services Anticipated Discharge Timeframe: TBD
[2020-02-04] MEDS ORDERED: GLYCOPYRROLATE 1 MG/5 ML VIAL ONE (14:20)
[2020-02-04] MEDS ORDERED: PHENYLEPHRINE HCL INJ/PF 10 MG/1 ML SDV ONE (14:20)
[2020-02-04] MEDS: INSULIN REG, HUMAN 100 UNIT/ML 3 ML VIAL (PYX) SUBCUT SCH ×2 (14:23→17:07)
[2020-02-04] MEDS: LATANOPROST 0.005% OPH SOLN 2.5 ML OU SCH (22:44)
[2020-02-05] MEDS ORDERED: HALOPERIDOL LACTATE INJ 5 MG/1 ML VIAL ONE (01:05)
[2020-02-05] MEDS ORDERED: HALOPERIDOL LACTATE INJ 5 MG/1 ML VIAL IV ONE (01:45)
[2020-02-05] MEDS: PANTOPRAZOLE SODIUM 40 MG TABLET.DR PO SCH (05:09)
--- NOTE | 2020-02-05 07:34 | PDOC PROGRESS REPORT ---
Subjective Date:: 02/05/20 Subjective:: Patient reports pain is well controlled this morning. No acute events overnight . Nursing staff explained that she has been combative intermittently. Pleasantly demented on my evaluation. Reason For Visit: RIGHT HIP FRACTURE Physical Exam Vital Signs: Temp Pulse Resp BP Pulse Ox 97.7 F 80 18 117/39 L 93 02/04/20 23:54 02/04/20 23:54 02/04/20 23:54 02/04/20 23:54 02/04/20 23:54 Intake & Output 02/04/20 02/05/20 02/06/20 06:59 06:59 06:59 Intake Total 260 Output Total 300 Balance -40 Weight 79.7 kg 79.8 kg Physical Exam: No acute distress, alert and oriented to person Right lower extremity -Pulses 2+ distally -Compartments soft -Sensation grossly intact to L3-4-5 S1 -Motor grossly intact to EHL TA gastroc and quad Leg shortened externally rotated, pain with any attempted range of motion. Results Laboratory Results: 02/04/20 03:07 02/04/20 03:07 02/04/20 07:36 Blood Type O POSITIVE Antibody Screen NEGATIVE 02/04/20 03:07 Troponin I < 0.012 Impressions: Chest X-Ray 02/04/20 04:02 IMPRESSION: No acute disease. Femur X-Ray 02/04/20 04:02 IMPRESSION: 1. Right femoral neck fracture. 2. Soft tissue edema about the thigh and knee. Hip/Pelvis X-Ray 02/04/20 04:02 IMPRESSION: Acute right subcapital femoral neck fracture. Assessment & Plan - Diagnosis (1) Displaced fracture of right femoral neck Is this a current diagnosis for this admission?: Yes Plan: Plan for operative intervention, right hip hemiarthroplasty, first case on 02/06/2020 Ancef on-call to the OR Hold all chemical DVT prophylaxis at midnight tonight -Medicine team to optimize the patient prior to operative intervention. We will discuss case with anesthesia so they are aware of her multiple comorbidities and risk factors Bedrest at this time. Incentive spirometer - Time Time Spent with patient: Less than 15 minutes
[2020-02-05] MEDS: INSULIN REG, HUMAN 100 UNIT/ML 3 ML VIAL (PYX) SUBCUT SCH ×3 (07:38→18:14)
[2020-02-05] MEDS: ACETAMINOPHEN 325 MG TABLET PO SCH ×3 (09:47→18:14)
[2020-02-05] MEDS: UMECLIDINIUM BROMIDE 62.5 MCG/DOSE IH SCH (09:48)
[2020-02-05] MEDS: FUROSEMIDE 40 MG TABLET PO SCH (09:48)
[2020-02-05] MEDS: POTASSIUM CHLORIDE 10 MEQ TABLET.ER PO SCH (09:48)
[2020-02-05] MEDS: METOPROLOL SUCCINATE 50 MG TAB.SR.24H PO SCH (09:48)
[2020-02-05] MEDS: FLUTICASONE/VILANTEROL 200-25 MCG/DOSE IH SCH (09:49)
[2020-02-05] MEDS ORDERED: HALOPERIDOL 1 MG TABLET PO PRN (11:00)
[2020-02-05] MEDS: CEFAZOLIN SODIUM 2 GM in DEXTROSE 5%-WATER 100 ML IV SCH ×2 (15:07→21:41)
--- NOTE | 2020-02-05 20:18 | PDOC PROGRESS REPORT ---
Subjective Date:: 02/05/20 Subjective:: She feels well. Denies pain while lying still in bed, but does have pain when turning. Reason For Visit: RIGHT HIP FRACTURE Physical Exam Vital Signs: Temp Pulse Resp BP Pulse Ox 97.7 F 88 20 169/57 H 95 02/05/20 15:27 02/05/20 15:27 02/05/20 15:27 02/05/20 15:27 02/05/20 15:27 Intake & Output 02/04/20 02/05/20 02/06/20 06:59 06:59 06:59 Intake Total 260 600 Output Total 300 400 Balance -40 200 Weight 79.7 kg 79.8 kg General appearance: PRESENT: no acute distress, cooperative Eye exam: ABSENT: scleral icterus Mouth exam: PRESENT: moist Neck exam: ABSENT: JVD Respiratory exam: PRESENT: clear to auscultation anny Cardiovascular exam: PRESENT: RRR GI/Abdominal exam: PRESENT: normal bowel sounds, soft. ABSENT: tenderness Gentrourinary exam: PRESENT: indwelling catheter Extremities exam: PRESENT: pedal edema Neurological exam: PRESENT: altered, awake Psychiatric exam: PRESENT: flat affect Skin exam: ABSENT: jaundice Results Laboratory Results: 02/04/20 03:07 02/04/20 03:07 02/04/20 03:07 Troponin I < 0.012 Impressions: Chest X-Ray 02/04/20 04:02 IMPRESSION: No acute disease. Femur X-Ray 02/04/20 04:02 IMPRESSION: 1. Right femoral neck fracture. 2. Soft tissue edema about the thigh and knee. Hip/Pelvis X-Ray 02/04/20 04:02 IMPRESSION: Acute right subcapital femoral neck fracture. Assessment and Plan - Diagnosis (1) Congestive heart failure (CHF) Qualifiers: Heart failure chronicity: unspecified Is this a current diagnosis for this admission?: Yes (2) Displaced fracture of right femoral neck Is this a current diagnosis for this admission?: Yes (3) Right hip pain Is this a current diagnosis for this admission?: Yes (5) Dementia Qualifiers: Dementia type: Alzheimer's disease Alzheimer's disease onset: late-onset Dementia behavioral disturbance: without behavioral disturbance Qualified Code(s): G30.1 - Alzheimer's disease with late onset; F02.80 - Dementia in other diseases classified elsewhere without behavioral disturbance Is this a current diagnosis for this admission?: Yes (6) Hypertension Qualifiers: Hypertension type: essential hypertension Qualified Code(s): I10 - Essential (primary) hypertension Is this a current diagnosis for this admission?: Yes - Plan Summary Summary: KAYLENE BENDER is an 89 year old female with history of CHF, HTN, HLD, DM2 who presented to the emergency department from [facility] with concerns regarding a fall and right hip pain. Patient states that she was trying to transfer from her bed to her chair when she fell landing on her right hip. Patient typically transfers with assistance. Acute right femoral neck fracture noted on imaging completed in the ED. Orthopedic surgery was consulted. Plan for right hip hemiarthroplasty tomorrow, 02/05. NPO past MN. Hold DVT ppx. I will hold her diuretics tonight/tomorrow and start very gentle IVF hydration. She has CHF and is high risk for fluid overload. BP is elevated. Start norvasc 5 mg HS. Glucose within normal limits. Stop SSI. Jimenez catheter inserted for comfort, will plan to remove after surgery and prior to discharge. - Time Time Spent with patient: 35 or more minutes Anticipated Discharge Disposition: Hospice Center Anticipated Discharge Timeframe: within 48 hours
[2020-02-05] MEDS ORDERED: NORMAL SALINE 1000 ML 1,000 ML IV PRN (20:19)
--- NOTE | 2020-02-05 21:12 | CDI QUERY ---
CDI Query CDI Review: We are seeking further clarification of documentation to reflect the severity of illness of your patient. (1) Congestive heart failure (CHF) Qualifiers: Heart failure chronicity: unspecified Is this a current diagnosis for this admission?: Yes Plan: [facility]IOR [facility] reports reviewed. Patient is on hospice for CHF. She utilizes 2 L supplemental O2 as needed. On Lasix twice daily. Denies shortness of breath, PND, orthopnea, edema. Chest x-ray without signs of acute exacerbation. Patient euvolemic, with clear lung sounds. O2 saturation greater than 95% on room air. Based on your medical judgement, can you further clarify in the Progress Notes and carry through the Discharge Summary: Type of heart failure: Systolic Diastolic Combined systolic/diastolic Other (please specify) None of the above / Not applicable Thank you for your consideration. ELVIS HicksN RN Clinical Decorative Cutting Machine Tender Physician Advisor [email or web address]
[2020-02-05] MEDS: AMLODIPINE BESYLATE 5 MG TABLET PO SCH (21:40)
[2020-02-05] MEDS: MONTELUKAST SODIUM 10 MG TABLET PO SCH (21:41)
[2020-02-05] MEDS: LATANOPROST 0.005% OPH SOLN 2.5 ML OU SCH (21:42)
[2020-02-06] MEDS ORDERED: MORPHINE SULFATE 10 MG/ML INJ IV ONE (02:00)
[2020-02-06] MEDS: CEFAZOLIN SODIUM 2 GM in DEXTROSE 5%-WATER 100 ML IV SCH ×3 (05:12→22:03)
[2020-02-06] MEDS: PANTOPRAZOLE SODIUM 40 MG TABLET.DR PO SCH (05:13)
[2020-02-06] MEDS ORDERED: MIDAZOLAM 2 MG/2 ML INJ ONE (06:29)
[2020-02-06] MEDS ORDERED: KETAMINE HCL INJ 500 MG/10 ML VIAL ONE (06:29)
[2020-02-06] MEDS ORDERED: FENTANYL CITRATE INJ/PF 100 MCG/2 ML AMPUL ONE (06:29)
[2020-02-06] MEDS ORDERED: EPHEDRINE SULFATE INJ 50 MG/1 ML AMPULE ONE (06:29)
[2020-02-06] MEDS ORDERED: DEXAMETHASONE SOD PHOSPHATE INJ 4 MG/1 ML VIAL ONE (06:30)
[2020-02-06] MEDS ORDERED: PROPOFOL INJ 200 MG/20 ML VIAL IV ONE (06:30)
[2020-02-06] MEDS ORDERED: ONDANSETRON HCL INJ/PF 4 MG/2 ML SDV ONE (06:30)
[2020-02-06] MEDS ORDERED: LIDOCAINE 2% INJ (20 MG/ML) 20 ML MDV ONE (06:32)
[2020-02-06] MEDS ORDERED: KETOROLAC TROMETHAMINE INJ/PF 30 MG/1 ML SDV ONE (07:01)
[2020-02-06] MEDS ORDERED: BUPIVACAINE HCL 0.25 % INJ/PF (2.5 MG/1 ML) 30 ML VIAL ONE (07:01)
[2020-02-06] MEDS ORDERED: VANCOMYCIN HCL INJ 1000 MG VIAL ONE ×2 (07:01→12:41)
[2020-02-06] MEDS ORDERED: CEFAZOLIN INJ 1 GM VIAL ONE ×2 (07:27→08:02)
[2020-02-06] MEDS ORDERED: TRANEXAMIC ACID INJ/PF 1,000 MG/10 ML SDV ONE ×2 (08:07→08:35)
[2020-02-06] MEDS ORDERED: FENTANYL CITRATE INJ/PF 100 MCG/2 ML AMPUL IV PRN ×3 (08:40)
[2020-02-06] MEDS ORDERED: PROMETHAZINE HCL INJ 25 MG/1 ML VIAL IV PRN (08:40)
[2020-02-06] MEDS ORDERED: MORPHINE SULFATE 10 MG/ML INJ IV PRN (08:40)
[2020-02-06] MEDS ORDERED: DIPHENHYDRAMINE HCL 50 MG/ML VIAL IV PRN (08:40)
[2020-02-06] MEDS ORDERED: DEXTROSE 40% GEL 15 GM TUBE PO PRN ×2 (08:53)
[2020-02-06] MEDS ORDERED: GLUCAGON,HUMAN RECOMB 1 MG INJ SUBCUT PRN (08:53)
[2020-02-06] MEDS ORDERED: RINGERS SOLUTION,LACTATED 1,000 ML IV PRN (08:53)
[2020-02-06] MEDS ORDERED: DEXTROSE 50%-WATER 25 GM/50 ML DISP.SYRIN IV PRN ×2 (08:53)
--- NOTE | 2020-02-06 09:13 | Operative Report ---
Operative Report DATE OF SURGERY: 02/06/20 PREOPERATIVE DIAGNOSIS: Right displaced femoral neck fracture. POSTOPERATIVE DIAGNOSIS: Right displaced femoral neck fracture OPERATION: Right hip hemiarthroplasty SURGEON: CALISTA RAMOS JR ANESTHESIA: Spinal COMPLICATIONS: None ESTIMATED BLOOD LOSS: 50 cc PROCEDURE: The patient's family was contacted preoperatively and provided informed operative consent. Prior to surgery, the patient was lucid, alert and oriented to person place and time. She provided written informed operative consent. I contacted the family and spoke with Emerson cardoza who represented her medical decision making and agreed with the plan and her ability to sign consent. IMPLANTS: [employer] a fit size 8 high offset femoral implant, unipolar 44 mm head with a 0 neck length insert. The patient was brought to the operative suite where they underwent spinal anesthesia. After adequate anesthesia, they were placed supine on the operating table both legs were hung sterilely prepped with chlorhexidine. 2 g of Ancef was provided preoperatively. Unfortunately there is some miscommunication on the floor and the initial dose was given nearly 2 hours before surgery. The patient was redosed in the operating room. After draping a standard sterile fashion an appropriate timeout was performed. A standard anterior incision was made with cautery through the soft tissue down to the tensor fascia. This was then sharply incised and then bluntly developed until reaching the crossing vasculature. These were cauterized and then with the assistance of retraction the hip capsule was isolated. An incision was made into the hip capsule with cautery and the fracture was exposed. A freshening neck cut was made at the appropriate level for stem implantation. The head was then removed and all debris within the capsule at this point was removed a trial implant was placed starting with a 46 and working her way to a 44 which had excellent fit. We then turned our attention to the femur which we carefully exposed. No further fracture was noted along the calcar. Upon doing our posterior capsular release off of the proximal femur in order to obtain femoral elevation and exposure, due to the patient's poor bone stock, small fracture off of the posterior greater trochanter occurred. The vast majority of the abductor attachments were still intact. Starting with a steel box toe inserter we then progressed to broaching. Broached up to a size 8 which had excellent fit. A lateral offset trial with a oh neck length was placed on the broach and reduced. This produced excellent fit, no impingement, minimal shuck, near equal leg length if not slightly long on the right, and no position of instability throughout a full range of motion. Intra- operative fluoroscopy was utilized to confirm stem position which was excellent. After this the hip was dislocated the trials were removed and the wound was thoroughly irrigated with Betadine solution. Fresh drape was then placed, all gloves were changed and then the final stem was implanted, along with the 44 head assembly. This was then reduced and again taken through a range of motion which demonstrated excellent stability and leg length. The wound was then irrigated with dilute betadyne solution, after this was evacuated and evaluated for any potential bleeding which was cauterized. The wound was irrigated once more with normal saline impregnated with antibiotics. The fascia was then closed with #2 barbed absorbable suture. The adipose layer was also closed with this suture, followed with 2-0 barbed running Monocryl in the subcutaneous tissue, and finally 2-0 Monocryl running in the subcuticular layer. Skin glue was applied and once dry a silver dressing was applied followed by a final occlusive dressing. The drapes were removed and the patient was then transferred to PACU in stable condition. The patient can now be made weightbearing as tolerated. She will receive aspirin per my recommendation for DVT prophylaxis for 6 weeks, 325 mg daily. Physical therapy should see them soon as possible to encourage mobilization and activities of daily living training.
--- NOTE | 2020-02-06 09:16 | PDOC PROGRESS REPORT ---
Subjective Date:: 02/06/20 Subjective:: Patient was seen and examined both preoperatively and postoperatively. She is d oing well in the PACU at this time. She is currently awakening anesthesia. She had no acute events overnight. Reason For Visit: RIGHT HIP FRACTURE Physical Exam Vital Signs: Temp Pulse Resp BP Pulse Ox 97.4 F 67 10 L 97/36 L 97 02/06/20 08:53 02/06/20 09:03 02/06/20 09:03 02/06/20 09:03 02/06/20 09:03 Intake & Output 02/05/20 02/06/20 02/07/20 06:59 06:59 06:59 Intake Total 112 482 4784 Output Total 300 760 150 Balance -40 103 1050 Weight 79.8 kg 72.8 kg Physical Exam: No acute distress Right lower extremity -Pulses 2+ distally -Compartments soft -Sensation grossly intact to L3-4-5 S1 -Motor grossly intact to EHL TA gastroc and quad Dressing clean dry and intact Results Laboratory Results: 02/04/20 03:07 02/04/20 03:07 02/04/20 03:07 Troponin I < 0.012 Impressions: Chest X-Ray 02/04/20 04:02 IMPRESSION: No acute disease. Femur X-Ray 02/04/20 04:02 IMPRESSION: 1. Right femoral neck fracture. 2. Soft tissue edema about the thigh and knee. Hip/Pelvis X-Ray 02/04/20 04:02 IMPRESSION: Acute right subcapital femoral neck fracture. Assessment & Plan - Diagnosis (1) Displaced fracture of right femoral neck Is this a current diagnosis for this admission?: Yes Plan: - 2 doses of Ancef postoperatively q 8 hours to complete 24 hours perioperatively -Weightbearing as tolerated, no precautions, encourage out of bed ALEX for ADL training - PT/OT -I placed the patient on Lovenox at this time, however would suggest transfer to aspirin 325 daily for DVT prophylaxis for 6 weeks if the hospitalist agrees. -multimodal pain management to avoid excessive narcotics, including gabapentin, tramadol, Toradol, acetaminophen. -Dressing should not be removed for 7 to 10 days until seen in the office -May shower with the dressing intact, if it starts to come off she should not get the incision wet. -Follow-up with Dr. Aniceto Haq, orthopedic surgeon at [facility] for surgery, in 10 days. Call for an appointment. . [address], [place] [address] - Time Time Spent with patient: Less than 15 minutes
[2020-02-06] MEDS ORDERED: ENOXAPARIN SODIUM INJ 30 MG/0.3 ML DISP.SYRIN SUBCUT SCH (10:00)
[2020-02-06] MEDS: ACETAMINOPHEN 325 MG TABLET PO SCH ×3 (12:17→17:43)
--- NOTE | 2020-02-06 12:20 | RADIOLOGY REPORT (SQ) ---
EXAM DESCRIPTION: HIP IN OPERATING RM; NO CHG FLUORO IMAGES COMPLETED DATE/TIME: 02/06/2020 9:06 am REASON FOR STUDY: RIGHT LEVAR ARTHROPLASTY ASSISTED WITH FLUORO IN OR COMPARISON: None. FLUOROSCOPY TIME: No recordable fluoro time. 1 images saved to PACS. TECHNIQUE: Intra-operative images acquired during surgical procedure to evaluate progress. NUMBER OF IMAGES: 1 LIMITATIONS: None. FINDINGS: Right hemiarthroplasty is documented. IMPRESSION: Right hemiarthroplasty. Refer to operative note for further information. COMMENT: Quality ID [id number]: Final reports for procedures using fluoroscopy that document radiation exp osure indices, or exposure time and number of fluorographic images (if radiation exposure indices are not available) Please consult full operative report of the attending physician for description of the procedure. TECHNICAL DOCUMENTATION: JOB ID: [id number] 2010 [employer]- All Rights Reserved Reading location - IP/workstation name: [email or web address]
--- NOTE | 2020-02-06 12:20 | RADIOLOGY REPORT (SQ) ---
EXAM DESCRIPTION: HIP IN OPERATING RM; NO CHG FLUORO IMAGES COMPLETED DATE/TIME: 02/06/2020 9:06 am REASON FOR STUDY: RIGHT LEVAR ARTHROPLASTY ASSISTED WITH FLUORO IN OR COMPARISON: None. FLUOROSCOPY TIME: No recordable fluoro time. 1 images saved to PACS. TECHNIQUE: Intra-operative images acquired during surgical procedure to evaluate progress. NUMBER OF IMAGES: 1 LIMITATIONS: None. FINDINGS: Right hemiarthroplasty is documented. IMPRESSION: Right hemiarthroplasty. Refer to operative note for further information. COMMENT: Quality ID [id number]: Final reports for procedures using fluoroscopy that document radiation exp osure indices, or exposure time and number of fluorographic images (if radiation exposure indices are not available) Please consult full operative report of the attending physician for description of the procedure. TECHNICAL DOCUMENTATION: JOB ID: [id number] 2010 [employer]- All Rights Reserved Reading location - IP/workstation name: [email or web address]
--- NOTE | 2020-02-06 12:22 | RADIOLOGY REPORT (SQ) ---
EXAM DESCRIPTION: HIP RIGHT AP/LATERAL IMAGES COMPLETED DATE/TIME: 02/06/2020 9:24 am REASON FOR STUDY: Post Op Long Cassette in PACU COMPARISON: None. NUMBER OF VIEWS: Two views. TECHNIQUE: AP pelvis and additional frog legview of the right hip. LIMITATIONS: None. FINDINGS: Images show a new right hip hemiarthroplasty. Prior ORIF of the left hip is seen. IMPRESSION: Right hip hemiarthroplasty. Refer to operative note for further information. TECHNICAL DOCUMENTATION: JOB ID: [id number] 2010 [employer]- All Rights Reserved Reading location - IP/workstation name: [email or web address]
[2020-02-06] MEDS: FLUTICASONE/VILANTEROL 200-25 MCG/DOSE IH SCH (13:12)
[2020-02-06] MEDS: METOPROLOL SUCCINATE 50 MG TAB.SR.24H PO SCH (13:12)
[2020-02-06] MEDS: UMECLIDINIUM BROMIDE 62.5 MCG/DOSE IH SCH (13:12)
[2020-02-06] MEDS ORDERED: CEFAZOLIN 2 GM/D5W RTU 50 ML IV SCH (14:00)
--- NOTE | 2020-02-06 18:52 | PDOC PROGRESS REPORT ---
Subjective Date:: 02/06/20 Reason For Visit: RIGHT HIP FRACTURE Physical Exam Vital Signs: Temp Pulse Resp BP Pulse Ox 97.6 F 77 16 129/46 H 96 02/06/20 15:59 02/06/20 17:00 02/06/20 17:00 02/06/20 15:59 02/06/20 17:00 Intake & Output 02/05/20 02/06/20 02/07/20 06:59 06:59 06:59 Intake Total 378 840 1084 Output Total 300 760 150 Balance -40 103 2530 Weight 79.8 kg 72.8 kg Results Laboratory Results: 02/04/20 03:07 02/04/20 03:07 02/04/20 03:07 Troponin I < 0.012 Impressions: Chest X-Ray 02/04/20 04:02 IMPRESSION: No acute disease. Femur X-Ray 02/04/20 04:02 IMPRESSION: 1. Right femoral neck fracture. 2. Soft tissue edema about the thigh and knee. Fluoroscopy 02/06/20 00:00 IMPRESSION: Right hemiarthroplasty. Refer to operative note for further information. Hip X-Ray 02/06/20 00:00 IMPRESSION: Right hemiarthroplasty. Refer to operative note for further information. Hip/Pelvis X-Ray 02/06/20 08:57 IMPRESSION: Right hip hemiarthroplasty. Refer to operative note for further information. Assessment and Plan - Diagnosis (1) Congestive heart failure (CHF) Qualifiers: Heart failure type: diastolic Heart failure chronicity: chronic Qualified Code(s): I50.32 - Chronic diastolic (congestive) heart failure Is this a current diagnosis for this admission?: Yes (2) Displaced fracture of right femoral neck Is this a current diagnosis for this admission?: Yes (3) Right hip pain Is this a current diagnosis for this admission?: Yes (5) Dementia Qualifiers: Dementia type: Alzheimer's disease Alzheimer's disease onset: late-onset Dementia behavioral disturbance: without behavioral disturbance Qualified Code(s): G30.1 - Alzheimer's disease with late onset; F02.80 - Dementia in other diseases classified elsewhere without behavioral disturbance Is this a current diagnosis for this admission?: Yes (6) Hypertension Qualifiers: Hypertension type: essential hypertension Qualified Code(s): I10 - Essential (primary) hypertension Is this a current diagnosis for this admission?: Yes - Plan Summary Summary: KAYLENE BENDER is an 89 year old female with history of severe, chronic diastolic CHF, HTN, HLD, DM2 who presented to the emergency department from [facility] with concerns regarding a fall and right hip pain. Patient states that she was trying to transfer from her bed to her chair when she fell landing on her right hip. Patient typically transfers with assistance. Acute right femoral neck fracture noted on imaging completed in the ED. Orthopedic surgery was consulted and she underwent right hip hemiarthroplasty on 02/05. DC Jimenez catheter today. PT/OT consulted. Plan to DC back to [facility] with Hospice tomorrow. - Time Time Spent with patient: 35 or more minutes Anticipated Discharge Disposition: Home with Hospice Anticipated Discharge Timeframe: within 24 hours
[2020-02-06] MEDS: MONTELUKAST SODIUM 10 MG TABLET PO SCH (22:02)
[2020-02-06] MEDS: AMLODIPINE BESYLATE 5 MG TABLET PO SCH (22:02)
[2020-02-06] MEDS: LATANOPROST 0.005% OPH SOLN 2.5 ML OU SCH (22:04)
[2020-02-07] MEDS ORDERED: NORMAL SALINE 1000 ML 1,000 ML IV ONE (04:00)
[2020-02-07 05:22] LABS: HEMATOCRIT 31.7 % (36.0-47.0); HEMOGLOBIN 11.1 g/dL (12.0-15.5); MEAN CORPUSCULAR HEMOGLOBIN 37.1 pg (27.0-33.4); MEAN CORPUSCULAR HGB CONC 35.1 g/dL (32.0-36.0); MEAN CORPUSCULAR VOLUME 106 fl (80-97); PLATELET COUNT 148 10^3/uL (150-450); RED BLOOD COUNT 2.99 10^6/uL (3.72-5.28); RED CELL DISTRIBUTION WIDTH 14.9 % (11.5-14.0); WHITE BLOOD COUNT 10.4 10^3/uL (4.0-10.5)
[2020-02-07 05:43] LABS: BLOOD UREA NITROGEN 28 mg/dL (7-20); CALCIUM 7.6 mg/dL (8.4-10.2); GLUCOSE 205 mg/dL (75-110); POTASSIUM 4.3 mmol/L (3.6-5.0)
[2020-02-07 05:48] LABS: CARBON DIOXIDE 24 mmol/L (22-30); CHLORIDE 101 mmol/L (98-107)
[2020-02-07 05:51] LABS: ANION GAP 4 (5-19)
[2020-02-07] MEDS: PANTOPRAZOLE SODIUM 40 MG TABLET.DR PO SCH (06:02)
[2020-02-07] MEDS ORDERED: NORMAL SALINE 1000 ML 1,000 ML IV PRN (08:00)
--- NOTE | 2020-02-07 08:27 | PDOC PROGRESS REPORT ---
Subjective Date:: 02/07/20 Subjective:: Patient seen and examined this morning. No acute events overnight. Pain well c ontrolled. Reason For Visit: RIGHT HIP FRACTURE Physical Exam Vital Signs: Temp Pulse Resp BP Pulse Ox 98.1 F 78 18 114/37 L 92 02/06/20 22:00 02/06/20 19:37 02/06/20 19:37 02/06/20 19:37 02/06/20 19:37 Intake & Output 02/06/20 02/07/20 02/08/20 06:59 06:59 06:59 Intake Total 863 2940 Output Total 760 350 Balance 103 2590 Weight 72.8 kg 72.8 kg Physical Exam: No acute distress Right lower extremity -Pulses 2+ distally -Compartments soft -Sensation grossly intact to L3-4-5 S1 -Motor grossly intact to EHL TA gastroc and quad Dressing clean dry and intact Results Laboratory Results: 02/07/20 05:05 02/07/20 05:05 02/07/20 02/07/20 05:05 05:05 WBC 10.4 RBC 2.99 L Hgb 11.1 L Hct 31.7 L MCV 106 H MCH 37.1 H MCHC 35.1 RDW 14.9 H Plt Count 148 L Sodium 129.3 L Potassium 4.3 Chloride 101 Carbon Dioxide 24 Anion Gap 4 L BUN 28 H Creatinine 1.06 Est GFR ( Amer) 59 L Glucose 205 H Calcium 7.6 L 02/04/20 03:07 Troponin I < 0.012 Impressions: Chest X-Ray 02/04/20 04:02 IMPRESSION: No acute disease. Femur X-Ray 02/04/20 04:02 IMPRESSION: 1. Right femoral neck fracture. 2. Soft tissue edema about the thigh and knee. Fluoroscopy 02/06/20 00:00 IMPRESSION: Right hemiarthroplasty. Refer to operative note for further information. Hip X-Ray 02/06/20 00:00 IMPRESSION: Right hemiarthroplasty. Refer to operative note for further information. Hip/Pelvis X-Ray 02/06/20 08:57 IMPRESSION: Right hip hemiarthroplasty. Refer to operative note for further information. Assessment & Plan - Diagnosis (1) Displaced fracture of right femoral neck Is this a current diagnosis for this admission?: Yes Plan: Postoperative day #1 status post right hip hemiarthroplasty - 2 doses of Ancef postoperatively q 8 hours to complete 24 hours perioperatively -Weightbearing as tolerated, no precautions, encourage out of bed ALEX for ADL training - PT/OT -aspirin 325 daily for DVT prophylaxis for 6 weeks -multimodal pain management to avoid excessive narcotics, including gabapentin, tramadol, Toradol, acetaminophen. -Dressing should not be removed for 7 to 10 days until seen in the office -May shower with the dressing intact, if it starts to come off she should not get the incision wet. -Follow-up with Dr. Aniceto Haq, orthopedic surgeon at [facility] surgery, in 10 days. Call for an appointment. . [address], [place] [address] - Time Time Spent with patient: Less than 15 minutes
--- NOTE | 2020-02-07 09:19 | PDOC DISCHARGE SUMMARY ---
Impression - Admit/DC Date/PCP Admission Date/Primary Care Provider: 02/04/20 06:50 GARY VILLALOBOS MD Discharge Date: 02/07/20 - Discharge Diagnosis (1) Congestive heart failure (CHF) Is this a current diagnosis for this admission?: Yes (2) Displaced fracture of right femoral neck Is this a current diagnosis for this admission?: Yes (3) Right hip pain Is this a current diagnosis for this admission?: Yes (4) Well controlled diabetes mellitus Is this a current diagnosis for this admission?: Yes (5) Dementia Is this a current diagnosis for this admission?: Yes (6) Hypertension Is this a current diagnosis for this admission?: Yes - Assessment Summary: Ms. KAYLENE BENDER is an 89 year old female with PMH of severe, chronic diastolic CHF, HTN, HLD, DM2 and dementia who presented to the emergency department from [facility] s/p mechanical fall c/b right hip pain. She was trying to transfer from her bed to her chair when she fell, landing on her right hip. She was found to have an acute right femoral neck fracture. Orthopedic surgery was consulted and she underwent right hip hemiarthroplasty on 02/06/[address] Aniceto Haq. She was able to participate with physical therapy on 02/06/2020 and pain is well controlled. She is weight-bearing as tolerated. She should continue to get strengthening and mobility services via Home Hospice upon d ischarge so that she can hopefully return to her prior mobility. Instructions as per orthopedic surgery: -Weight-bearing as tolerated -no precautions -encourage her to be out of bed ALEX for ADL training -aspirin 325 daily for DVT prophylaxis for 6 weeks, then reduce dose to 81 mg daily thereafter -multimodal pain management to avoid excessive narcotics, including: scheduled acetaminophen, PRN Tramadol, lidocaine patches -Dressing should not be removed for 7 to 10 days, until seen in the office -May shower with the dressing intact, and if it starts to come off, she should not get the incision wet. -Follow-up with Dr. Aniceto Haq, orthopedic surgeon at [facility] for surgery, in 10 days. Call for an appointment. . [address], [place] [address] She is now stable for discharge back to [facility] to resume Hospice services. - Additional Information Resuscitation Status: Comfort Measures Only Discharge Diet: Regular Discharge Activity: Activity As Tolerated, Balance Activity w/Rest, Keep Legs Elevated, Weigh Daily Referrals: [employer] [Outside] ANICETO HAQ JR, DO [ACTIVE PROVISIONAL STAFF] - Home Medications: Montelukast Sodium [Singulair 10 mg Tablet] 10 mg PO QHS 02/09/11 Budesonide/Formoterol Fumarate [Symbicort HFA 160-4.5 mcg Inhaler 6 gm] 2 puff IH Q12 02/17/18 Cetirizine HCl [Zyrtec 10 mg Tablet] 10 mg PO DAILY 02/17/18 Latanoprost [Xalatan] 1 drop OU QHS 02/17/18 Omeprazole 20 mg PO DAILY 02/17/18 Glimepiride [Amaryl 1 mg Tablet] 1 mg PO QAM #30 tablet 02/23/18 Acetaminophen [Tylenol 325 mg Tablet] 650 mg PO Q6HP PRN MDD 3 GRAMS 02/04/20 Bacitracin Zinc [Bacitracin Oint 15 gm] 1 applic TP DAILY 02/04/20 Furosemide [Lasix 40 mg Tablet] 40 mg PO BID 02/04/20 Hydrocortisone Acetate [Anusol-Hc] 25 mg RC Q12HP PRN 02/04/20 Lidocaine [Aspercreme Lidocaine] 1 patch TOP DAILY 02/04/20 Metoprolol Succinate [Toprol Xl 50 mg Tab.sr] 50 mg PO DAILY 02/04/20 Potassium Chloride [Klor-Con 10 Meq Tablet ER] 10 meq PO BID 02/04/20 Tiotropium [place] [Spiriva Respimat] 2 inh IH DAILY 02/04/20 Tramadol HCl [Ultram 50 mg Tablet] 50 mg PO Q6HP PRN 02/04/20 Acetaminophen [Tylenol 325 mg Tablet] 975 mg PO TID tablet 02/07/20 Aspirin [Aspirin 325 mg Tablet] 325 mg PO DAILY tablet 02/07/20 History of Present Illiness History of Present Illness: KAYLENE BENDER is a 89 year old female Physical Exam Vital Signs: Temp Pulse Resp BP Pulse Ox 98.1 F 78 18 114/37 L 92 02/06/20 22:00 02/06/20 19:37 02/06/20 19:37 02/06/20 19:37 02/06/20 19:37 Intake & Output 02/06/20 02/07/20 02/08/20 06:59 06:59 06:59 Intake Total 863 2940 Output Total 760 350 Balance 103 2590 Weight 72.8 kg 72.8 kg Results Laboratory Results: WBC 10.4 10^3/uL (4.0-10.5) 02/07/20 05:05 RBC 2.99 10^6/uL (3.72-5.28) L 02/07/20 05:05 Hgb 11.1 g/dL (12.0-15.5) L 02/07/20 05:05 Hct 31.7 % (36.0-47.0) L 02/07/20 05:05 MCV 106 fl (80-97) H 02/07/20 05:05 MCH 37.1 pg (27.0-33.4) H 02/07/20 05:05 MCHC 35.1 g/dL (32.0-36.0) 02/07/20 05:05 RDW 14.9 % (11.5-14.0) H 02/07/20 05:05 Plt Count 148 10^3/uL (150-450) L 02/07/20 05:05 Lymph % (Auto) 26.4 % (13-45) 02/04/20 03:07 [place] % (Auto) 10.2 % (3-13) 02/04/20 03:07 Eos % (Auto) 2.2 % (0-6) 02/04/20 03:07 Baso % (Auto) 1.1 % (0-2) 02/04/20 03:07 Absolute Neuts (auto) 5.4 10^3/uL (1.7-8.2) 02/04/20 03:07 Absolute Lymphs (auto) 2.4 10^3/uL (0.5-4.7) 02/04/20 03:07 Absolute Monos (auto) 0.9 10^3/uL (0.1-1.4) 02/04/20 03:07 Absolute Eos (auto) 0.2 10^3/uL (0.0-0.6) 02/04/20 03:07 Absolute Basos (auto) 0.1 10^3/uL (0.0-0.2) 02/04/20 03:07 Seg Neutrophils % 60.1 % (42-78) 02/04/20 03:07 PT 18.7 SEC (11.4-15.4) H 02/04/20 03:07 INR 1.55 02/04/20 03:07 Sodium 129.3 mmol/L (137-145) L 02/07/20 05:05 Potassium 4.3 mmol/L (3.6-5.0) 02/07/20 05:05 Chloride 101 mmol/L (98-107) 02/07/20 05:05 Carbon Dioxide 24 mmol/L (22-30) 02/07/20 05:05 Anion Gap 4 (5-19) L 02/07/20 05:05 BUN 28 mg/dL (7-20) H 02/07/20 05:05 Creatinine 1.06 mg/dL (0.52-1.25) 02/07/20 05:05 Est GFR ( Amer) 59 (>60) L 02/07/20 05:05 Est GFR (MDRD) Non-Af 49 (>60) L 02/07/20 05:05 Glucose 205 mg/dL (75-110) H 02/07/20 05:05 POC Glucose 200 mg/dL (70-110) H 02/07/20 06:10 Calcium 7.6 mg/dL (8.4-10.2) L 02/07/20 05:05 Total Bilirubin 2.3 mg/dL (0.2-1.3) H 02/04/20 03:07 Direct Bilirubin 0.7 mg/dL (0.0-0.4) H 02/04/20 03:07 Neonat Total Bilirubin Not Reportable 02/04/20 03:07 Neonat Direct Bilirubin Not Reportable 02/04/20 03:07 Neonat Indirect Bili Not Reportable 02/04/20 03:07 AST 53 U/L (14-36) H 02/04/20 03:07 ALT 24 U/L (<35) 02/04/20 03:07 Alkaline Phosphatase 362 U/L (38-126) H 02/04/20 03:07 Troponin I < 0.012 ng/mL 02/04/20 03:07 Total Protein 7.3 g/dL (6.3-8.2) 02/04/20 03:07 Albumin 2.6 g/dL (3.5-5.0) L 02/04/20 03:07 Influenza A (RT-PCR) NEGATIVE (NEGATIVE) 02/04/20 07:36 Influenza B (RT-PCR) NEGATIVE (NEGATIVE) 02/04/20 07:36 RSV (RT-PCR) NEGATIVE (NEGATIVE) 02/04/20 07:36 SARS-CoV-2 Rap RNA(RT-PCR) NEGATIVE (NEGATIVE) 02/04/20 07:36 Blood Type O POSITIVE 02/04/20 07:36 Antibody Screen NEGATIVE 02/04/20 07:36 02/04/20 03:07 Troponin I < 0.012 Impressions: Chest X-Ray 02/04/20 04:02 IMPRESSION: No acute disease. Femur X-Ray 02/04/20 04:02 IMPRESSION: 1. Right femoral neck fracture. 2. Soft tissue edema about the thigh and knee. Hip/Pelvis X-Ray 02/04/20 04:02 IMPRESSION: Acute right subcapital femoral neck fracture. Fluoroscopy 02/06/20 00:00 IMPRESSION: Right hemiarthroplasty. Refer to operative note for further information. Hip X-Ray 02/06/20 00:00 IMPRESSION: Right hemiarthroplasty. Refer to operative note for further information. Hip/Pelvis X-Ray 02/06/20 08:57 IMPRESSION: Right hip hemiarthroplasty. Refer to operative note for further information. Stroke Is this a Stroke Patient?: No Acute Heart Failure Is this a Heart Failure Patient?: Yes Documentation of LVEF assessment?: Yes LVEF: LVEF Greater Than 40% Anticoagulant Therapy: N/A
[2020-02-07] MEDS ORDERED: ASPIRIN 325 MG TABLET PO SCH (10:00)
[2020-02-07] MEDS ORDERED: FUROSEMIDE 40 MG TABLET PO SCH (10:00)
[2020-02-07] MEDS: METOPROLOL SUCCINATE 50 MG TAB.SR.24H PO SCH (10:01)
[2020-02-07] MEDS: ACETAMINOPHEN 325 MG TABLET PO SCH ×2 (10:02→14:11)
[2020-02-07] MEDS: UMECLIDINIUM BROMIDE 62.5 MCG/DOSE IH SCH (10:02)
[2020-02-07] MEDS: FLUTICASONE/VILANTEROL 200-25 MCG/DOSE IH SCH (10:03)
[2020-02-07 12:52] VITALS: BP 121/33
== END 2020-02-07 16:15 | DRG 522 ==
LOC: ER 02:56 → EH 06:50 → 5TH 10:47 → 4W 12:39
PROVIDERS: ADMIT Internal Medicine; ATTEND Hospitalist
PROC: 0SRR0JZ Replacement of Right Hip Joint, Femoral Surface with Synthetic Substitute, Open Approach (ICD-10-PCS; principal; 2020-02-06 07:30)
DX: S72.011A Unspecified intracapsular fracture of right femur, initial encounter for closed fracture (principal); I50.32 Chronic diastolic (congestive) heart failure; M96.661 Fracture of femur following insertion of orthopedic implant, joint prosthesis, or bone plate, right leg; W06.XXXA Fall from bed, initial encounter; G30.1 Alzheimer's disease with late onset; F02.80 Dementia in other diseases classified elsewhere, unspecified severity, without behavioral disturbance, psychotic disturbance, mood disturbance, and anxiety; I11.0 Hypertensive heart disease with heart failure; Y92.122 Bedroom in nursing home as the place of occurrence of the external cause; E78.5 Hyperlipidemia, unspecified; E11.9 Type 2 diabetes mellitus without complications; K21.9 Gastro-esophageal reflux disease without esophagitis; Z66 Do not resuscitate; M19.90 Unspecified osteoarthritis, unspecified site; Z20.828 Contact with and (suspected) exposure to other viral communicable diseases; Z79.82 Long term (current) use of aspirin; Z79.899 Other long term (current) drug therapy; Z79.84 Long term (current) use of oral hypoglycemic drugs; Z88.2 Allergy status to sulfonamides; Z88.1 Allergy status to other antibiotic agents; J45.909 Unspecified asthma, uncomplicated; Z79.51 Long term (current) use of inhaled steroids; Z80.41 Family history of malignant neoplasm of ovary
CPT/HCPCS: 01210; 36415; 71045; 80048; 80053; 82962; 84484; 85025; 85027; 85610; 86850; 86900; 86901; 94799; 96374; 96376; 99140; 99285; 0241U; C1776; C9803; J0690; J1100; J1630; J1650; J1815; J1885; J2250; J2270; J2370; J2405; J2704; J3010; J3370; J3490; J7030; J7060

== ENCOUNTER 2020-02-12 04:10 | Inpatient (IN) | payer MEDICARE, BC ==
[2020-02-12 09:14] LABS: ALBUMIN 2.1 g/dL (3.5-5.0); ALKALINE PHOSPHATASE 273 U/L (38-126); ASPARTATE AMINO TRANSFERASE 102 U/L (14-36); BILIRUBIN,DIRECT 0.7 mg/dL (0.0-0.4); BILIRUBIN,TOTAL 3.1 mg/dL (0.2-1.3); BLOOD UREA NITROGEN 31 mg/dL (7-20); CALCIUM 7.5 mg/dL (8.4-10.2); GLUCOSE 172 mg/dL (75-110); POTASSIUM 5.6 mmol/L (3.6-5.0); TOTAL PROTEIN 6.1 g/dL (6.3-8.2)
[2020-02-12 09:20] LABS: ANION GAP 5 (5-19); CARBON DIOXIDE 26 mmol/L (22-30); CHLORIDE 101 mmol/L (98-107)
[2020-02-12] MEDS ORDERED: PANTOPRAZOLE SODIUM 40 MG VIAL IV ONE (09:44)
[2020-02-12] MEDS ORDERED: NORMAL SALINE 500 ML IV ONE ×2 (09:44→14:57)
[2020-02-12] MEDS ORDERED: PANTOPRAZOLE SODIUM 40 MG VIAL IV PRN (09:46)
[2020-02-12 10:01] LABS: APPEARANCE,URINE SLIGHTLY-CLOUDY; BILIRUBIN,URINE NEGATIVE (NEGATIVE); COLOR,URINE AMBER; GLUCOSE, URINE NEGATIVE (NEGATIVE); KETONES,URINE NEGATIVE (NEGATIVE); LEUKOCYTE ESTERASE,URINE NEGATIVE (NEGATIVE); NITRITE,URINE NEGATIVE (NEGATIVE); PROTEIN,URINE NEGATIVE (NEGATIVE); URINE SPECIFIC GRAVITY 1.021
--- NOTE | 2020-02-12 10:30 | ER Document Report ---
Entered by SERA STAFFORD SCRIBE 02/12/20 0928 Acting as scribe for:FLORENTINO GILLIAM IV, MD ED General - General Chief Complaint: Vomiting Stated Complaint: VOMITING Primary Care Provider: GARY VILLALOBOS MD [Primary Care Provider] - Follow up as needed Mode of Arrival: Medic Information source: Emergency Med Personnel, [facility] Records Cannot obtain history due to: Dementia Notes: This 89 year old female patient with a history of dementia brought in by EMS from [facility] presents to the ED today for evaluation after facility staff noticed that the patient had dried reddish-brown substance on the corner of her mouth followed by an episode of hematemesis that occurred just prior to arrival. Patient is unable to provide any reasonable history, therefore HPI is limited and ROS is unobtainable. Per [facility] records, patient was admitted here on 02/03 for a right hip fracture and underwent right hemiarthroplasty on 02/[address] Haq; she was discharged on 02/06. It is unknown if the patient is on any anticoagulants. TRAVEL OUTSIDE OF THE [place] IN LAST 30 DAYS: No - Related Data Allergies/Adverse Reactions: ciprofloxacin [From Cipro] Allergy (Verified 08/08/16 21:23) lisinopril [Lisinopril] Allergy (Verified 07/06/16 16:01) Sulfa (Sulfonamide Antibiotics) Allergy (Verified 08/08/16 21:23) naproxen sodium [From Aleve] Adverse Reaction (Verified 07/06/16 16:01) Chest pain Past Medical History - General Information source: [facility] Records Cannot obtain history due to: Dementia - Social History Smoking Status: Unknown if Ever Smoked Smoking Education Provided: No Family History: Reviewed & Not Pertinent, Malignancy - Mother passed from ovarian cancer - Past Medical History Cardiac Medical History: Reports: Hx Hypercholesterolemia, Hx Hypertension Pulmonary Medical History: Reports: Hx Asthma Endocrine Medical History: Reports: Hx Diabetes Mellitus Type 2 GI Medical History: Reports: Hx Gastroesophageal Reflux Disease Musculoskeletal Medical History: Reports Hx Arthritis - OA Traumatic Medical History: Reports: Hx Fractures - Right hip Past Surgical History: Reports: Hx Orthopedic Surgery - Right hip arthroplasty 02/06/2020 - Immunizations Hx Diphtheria, Pertussis, Tetanus Vaccination: Yes - unk Review of Systems - Review of Systems -: Yes ROS unobtainable due to patient's medical condition - Dementia Physical Exam - Vital signs Vitals: Temp Pulse Resp BP Pulse Ox 98.9 F 95 18 129/33 H 98 02/12/20 04:45 02/12/20 04:45 02/12/20 04:45 02/12/20 04:45 02/12/20 04:45 - General General appearance: Alert, Other - Seems demented, uses repetitive phrases - HEENT Head: Normocephalic, Atraumatic Eyes: Normal Extraocular movements intact: Yes Pupils: PERRL Mouth/Lips: Other - There is dried blood on the patient's lips and inner mouth Neck: Normal, Supple - Respiratory Respiratory status: No respiratory distress Chest status: Nontender Breath sounds: Normal Chest palpation: Normal - Cardiovascular Rhythm: Regular Heart sounds: Normal auscultation Murmur: No Friction rub: No Gallop: None auscultated - Abdominal Inspection: Normal Distension: No distension Bowel sounds: Normal Tenderness: Nontender - Abdomen soft Organomegaly: No organomegaly - Back Back: Normal, Nontender - Extremities General upper extremity: Normal inspection General lower extremity: Edema - 2+ pitting edema to bilateral lower extremities - Neurological Cognition: Other - Demented - Psychological Associated symptoms: Other - Unable to assess due to patient's medical condition - Skin Skin Temperature: Warm Skin Moisture: Dry Skin Color: Normal Course - Re-evaluation Re-evalutation: 02/12/20 13:28 Patient has remained hemodynamically stable. This MD is consulted with Dr. Nazario and Dr. Chávez for endoscopy/colonoscopy and admission respectively. - Vital Signs Vital signs: Temp Pulse Resp BP Pulse Ox 98.9 F 95 18 129/33 H 98 02/12/20 04:45 02/12/20 04:45 02/12/20 04:45 02/12/20 04:45 02/12/20 04:45 - Laboratory Results Result Diagrams: 02/12/20 12:09 02/12/20 05:35 Laboratory Results Interpreted: 02/12/20 02/12/20 02/12/20 05:35 09:32 12:09 WBC 25.1 H RBC 2.37 L Hgb 8.7 L Hct 25.8 L MCV 109 H MCH 36.7 H RDW 15.7 H Seg Neuts % (Manual) 79 H Band Neutrophils % 1 L Abs Neuts (Manual) 20.1 H PT APTT Sodium 131.6 L Potassium 5.6 H BUN 31 H Glucose 172 H Calcium 7.5 L Total Bilirubin 3.1 H Direct Bilirubin 0.7 H AST 102 H Alkaline Phosphatase 273 H Total Protein 6.1 L Albumin 2.1 L Urine Urobilinogen 4.0 H 02/12/20 12:09 WBC RBC Hgb Hct MCV MCH RDW Seg Neuts % (Manual) Band Neutrophils % Abs Neuts (Manual) PT 27.3 H APTT 39.7 H Sodium Potassium BUN Glucose Calcium Total Bilirubin Direct Bilirubin AST Alkaline Phosphatase Total Protein Albumin Urine Urobilinogen Critical Laboratory Results Reviewed: Yes Attending or Supervising Physician who Reviewed Labs: FLORENTINO GILLIAM IV - White count of 25.1 and hemoglobin of 8.7 which is down from 11.1 on 02/07/2020 - Radiology Results Critical Radiology Results Reviewed: No Critical Results - Consults Dr. Nazario, Surgicalist Time consulted: 13:18 Consulted provider: will come to ER Dr. Chávez, Hospitalist Time consulted: 13:27 Consulted provider: will come to ER Critical Care Note - Critical Care Note Total time excluding time spent on procedures (mins): 120 - Management of acute GI bleed Discharge - Discharge Clinical Impression: Acute GI bleeding, Acute anemia Condition: Stable Disposition: ADMITTED INPATIENT Admitting Provider: Saira (Hospitalist) Unit Admitted: Medical Floor Referrals: GARY VILLALOBOS MD [Primary Care Provider] - Follow up as needed I personally performed the services described in the documentation, reviewed and edited the documentation which was dictated to the scribe in my presence, and it accurately records my words and actions.
[2020-02-12 12:26] LABS: HEMATOCRIT 25.8 % (36.0-47.0); HEMOGLOBIN 8.7 g/dL (12.0-15.5); MEAN CORPUSCULAR HEMOGLOBIN 36.7 pg (27.0-33.4); MEAN CORPUSCULAR HGB CONC 33.6 g/dL (32.0-36.0); MEAN CORPUSCULAR VOLUME 109 fl (80-97); PLATELET COUNT 168 10^3/uL (150-450); RED BLOOD COUNT 2.37 10^6/uL (3.72-5.28); RED CELL DISTRIBUTION WIDTH 15.7 % (11.5-14.0); WHITE BLOOD COUNT 25.1 10^3/uL (4.0-10.5)
[2020-02-12 12:39] LABS: INTERNATIONAL RATION (INR) 2.54; PROTHROMBIN TIME 27.3 SEC (11.4-15.4)
[2020-02-12 12:40] LABS: PARTIAL THROMBOPLASTIN TIME 39.7 SEC (23.5-35.8)
[2020-02-12 13:12] LABS: ABSOLUTE LYMPHOCYTES# (MANUAL) 3.8 10^3/uL (0.5-4.7); ABSOLUTE MONOCYTES # (MANUAL) 1.3 10^3/uL (0.1-1.4); ANISOCYTOSIS SLIGHT; BAND NEUTROPHILS % (MANUAL) 1 % (3-5); BASOPHILS % (MANUAL) 0 % (0-2); EOSINOPHILS % (MANUAL) 0 % (0-6); LYMPHOCYTES % (MANUAL) 15 % (13-45); MONOCYTES % (MANUAL) 5 % (3-13); PLATELET COMMENT ADEQUATE; SEGMENTED NEUTROPHILS % (MAN) 79 % (42-78); TOTAL CELLS COUNTED 100
[2020-02-12 13:13] LABS: PLATELET CLUMPS PRESENT; POLYCHROMASIA 1+
[2020-02-12 13:14] LABS: POIKILOCYTOSIS SLIGHT; TARGET CELLS SLIGHT
[2020-02-12] MEDS ORDERED: ONDANSETRON 4 MG TAB.RAPDIS PO PRN (13:36)
[2020-02-12] MEDS ORDERED: ACETAMINOPHEN 325 MG TABLET PO PRN (13:36)
[2020-02-12] MEDS ORDERED: TEMAZEPAM 7.5 MG CAPSULE PO PRN (13:36)
[2020-02-12] MEDS ORDERED: ONDANSETRON HCL INJ/PF 4 MG/2 ML SDV IV PRN (13:36)
[2020-02-12] MEDS ORDERED: PROMETHAZINE HCL INJ 25 MG/1 ML VIAL IV PRN (13:36)
[2020-02-12] MEDS ORDERED: DEXTROSE 5%-NORMAL SALINE 1,000 ML IV PRN (13:36)
[2020-02-12] MEDS ORDERED: IPRATROPIUM/ALBUTEROL 0.5-2.5 MG/3 ML AMPUL NEB PRN (13:36)
[2020-02-12] MEDS ORDERED: MAGNESIUM HYDROXIDE SUSP 30 ML UDCUP PO PRN (13:36)
[2020-02-12] MEDS ORDERED: PROMETHAZINE HCL 25 MG TABLET PO PRN (13:36)
[2020-02-12] MEDS ORDERED: LABETALOL HCL INJ 20 MG/4 ML DISP.SYRIN IV PRN (13:43)
[2020-02-12] MEDS ORDERED: OXYCODONE-ACETAMINOPHEN 5-325 MG TABLET PO PRN (13:43)
[2020-02-12] MEDS ORDERED: DEXTROSE 50%-WATER 25 GM/50 ML DISP.SYRIN IV PRN ×2 (13:44)
[2020-02-12] MEDS ORDERED: GLUCAGON,HUMAN RECOMB 1 MG INJ IM PRN (13:44)
[2020-02-12] MEDS ORDERED: DEXTROSE 40% GEL 15 GM TUBE PO PRN ×2 (13:44)
[2020-02-12] MEDS ORDERED: NORMAL SALINE 250 ML IV PRN ×2 (13:46)
--- NOTE | 2020-02-12 14:20 | PDOC H&P ---
History of Present Illness Admission Date/PCP: 02/12/20 14:05 GARY VILLALOBOS MD History of Present Illness: KAYLENE BENDER is a 89 year old female past medical history of CHF, hypertension, hyperlipidemia, diabetes, dementia, resident of [facility] who was recently hospitalized at [facility] on 02/04/2020 and discharged on 02/07/2020 for right hip fracture after she underwent right hemiarthroplasty, patient was discharged home on aspirin 325 daily for DVT prophylaxis for 6 weeks given history of recent right hip fracture, pain is brought to ED after being observed to have some dried blood at the corner of her mouth at the assisted living that she is living, prior to ED arrival patient had a witnessed hematemesis, due to dementia patient does not provide much history when asked why she is in ED she states she is here for right fracture, when asked if she remembers that she had an episode of hematemesis she states yes, she denies any abdominal pain, nausea, vomiting, diarrhea, constipation, chest pain, shortness of breath. In ED she was noted to have leukocytosis with hemoglobin of 8.7, stool guaiac positive, elevated potassium and liver chemistries, UA negative Covid negative. Hospitalist consulted for admission. Past Medical History Cardiac Medical History: Reports: Hyperlipidema, Hypertension Pulmonary Medical History: Reports: Asthma Endocrine Medical History: Reports: Diabetes Mellitus Type 2 GI Medical History: Reports: Gastroesophageal Reflux Disease Musculoskeltal Medical History: Reports: Arthritis - OA Psychiatric Medical History: Denies: Depression Past Surgical History Past Surgical History: Reports: Orthopedic Surgery - Right hip arthroplasty 02/06/2020 Social History Smoking Status: Unknown if Ever Smoked Frequency of Alcohol Use: None Hx Recreational Drug Use: No Hx Prescription Drug Abuse: No Family History Family History: Reviewed & Not Pertinent, Malignancy - Mother passed from ovarian cancer Parental Family History Reviewed: Yes Children Family History Reviewed: Yes Sibling(s) Family History Reviewed.: Yes Medication/Allergy Home Medications: Montelukast Sodium [Singulair 10 mg Tablet] 10 mg PO QHS 02/09/11 Budesonide/Formoterol Fumarate [Symbicort HFA 160-4.5 mcg Inhaler 6 gm] 2 puff IH Q12 02/17/18 Omeprazole 20 mg PO DAILY 02/17/18 Acetaminophen [Tylenol 325 mg Tablet] 650 mg PO Q6HP PRN MDD 3 GRAMS 02/04/20 Furosemide [Lasix 40 mg Tablet] 40 mg PO BID 02/04/20 Lidocaine [Aspercreme Lidocaine] 1 patch TOP DAILY 02/04/20 Metoprolol Succinate [Toprol Xl 50 mg Tab.sr] 50 mg PO DAILY 02/04/20 Potassium Chloride [Klor-Con 10 Meq Tablet ER] 10 meq PO BID 02/04/20 Tiotrop[address] [place] [Spiriva Respimat] 2 inh IH DAILY 02/04/20 Tramadol HCl [Ultram 50 mg Tablet] 50 mg PO Q6HP PRN 02/04/20 Aspirin [Aspirin 325 mg Tablet] 325 mg PO DAILY tablet 02/07/20 Allergies/Adverse Reactions: ciprofloxacin [From Cipro] Allergy (Verified 08/08/16 21:23) lisinopril [Lisinopril] Allergy (Verified 07/06/16 16:01) Sulfa (Sulfonamide Antibiotics) Allergy (Verified 08/08/16 21:23) naproxen sodium [From Aleve] Adverse Reaction (Verified 07/06/16 16:01) Chest pain Review of Systems Review of Systems: as per hpi Physical Exam Vital Signs: Temp Pulse Resp BP Pulse Ox 98.9 F 95 18 129/33 H 98 02/12/20 04:45 02/12/20 04:45 02/12/20 04:45 02/12/20 04:45 02/12/20 04:45 Intake & Output 02/11/20 02/12/20 02/13/20 06:59 06:59 06:59 Intake Total 500 Balance 500 Weight 79 kg General appearance: PRESENT: no acute distress, obese, well-developed, well- nourished Respiratory exam: PRESENT: clear to auscultation anny. ABSENT: rales, rhonchi, wheezes Cardiovascular exam: PRESENT: RRR. ABSENT: diastolic murmur, rubs, systolic murmur GI/Abdominal exam: PRESENT: normal bowel sounds, soft. ABSENT: distended, guarding, mass, organolmegaly, rebound, tenderness Extremities exam: PRESENT: tenderness - Right lower extremity., other - Right lower extremity range of motion limited due to pain. Surgical wound looks clean. Tender to palpation. Sign of infection. Neurological exam: PRESENT: alert, awake, oriented to person, CN II-XII grossly intact. ABSENT: motor sensory deficit Results Laboratory Results: 02/12/20 12:09 02/12/20 05:35 02/12/20 02/12/20 02/12/20 05:35 09:32 12:09 WBC 25.1 H RBC 2.37 L Hgb 8.7 L Hct 25.8 L MCV 109 H MCH 36.7 H MCHC 33.6 RDW 15.7 H Plt Count 168 Seg Neutrophils % Not Reportable Sodium 131.6 L Potassium 5.6 H Chloride 101 Carbon Dioxide 26 Anion Gap 5 BUN 31 H Creatinine 0.72 Est GFR ( Amer) > 60 Glucose 172 H Calcium 7.5 L Total Bilirubin 3.1 H AST 102 H Alkaline Phosphatase 273 H Total Protein 6.1 L Albumin 2.1 L Urine Color MICHELLE Urine Appearance SLIGHTLY-CLOUDY Urine pH 5.0 Ur Specific [place] 1.021 Urine Protein NEGATIVE Urine Glucose (UA) NEGATIVE Urine Ketones NEGATIVE Urine Blood NEGATIVE Urine Nitrite NEGATIVE Ur Leukocyte Esterase NEGATIVE Urine WBC (Auto) 2 Urine RBC (Auto) 1 Blood Type Antibody Screen 02/12/20 12:09 WBC RBC Hgb Hct MCV MCH MCHC RDW Plt Count Seg Neutrophils % Sodium Potassium Chloride Carbon Dioxide Anion Gap BUN Creatinine Est GFR ( Amer) Glucose Calcium Total Bilirubin AST Alkaline Phosphatase Total Protein Albumin Urine Color Urine Appearance Urine pH Ur Specific [place] Urine Protein Urine Glucose (UA) Urine Ketones Urine Blood Urine Nitrite Ur Leukocyte Esterase Urine WBC (Auto) Urine RBC (Auto) Blood Type O POSITIVE Antibody Screen NEGATIVE Assessment and Plan - Diagnosis (1) Acute GI bleeding Is this a current diagnosis for this admission?: Yes Plan: Most likely upper GI bleed. Likely due to NSAIDs. Was recently discharged on aspirin 325 for DVT prophylaxis after was hospitalized for right hip fracture. Admit to floor, monitor H&H, Protonix drip, supportive transfusion, keep hemoglobin above 9 given history of CHF CAD. Surgery consulted. Pending recommendation. (2) Acute anemia Is this a current diagnosis for this admission?: Yes Plan: Acute blood loss anemia. Plan as per #1. (3) Congestive heart failure (CHF) Qualifiers: Heart failure type: systolic Heart failure chronicity: chronic Qualified Code(s): I50.22 - Chronic systolic (congestive) heart failure Is this a current diagnosis for this admission?: Yes Plan: Compensated. Resume home meds. Monitor volume status. Cardiac diet. (4) Dementia Is this a current diagnosis for this admission?: Yes Plan: Alert and oriented x1, cooperative and very pleasant. Monitor for fall. Supportive care. (5) Diabetes mellitus Qualifiers: Is this a current diagnosis for this admission?: Yes Plan: Diabetic diet, sliding scale insulin. Hypoglycemia protocol. Accu-Chek. Resume home meds upon discharge. (6) Hypertension Qualifiers: Is this a current diagnosis for this admission?: Yes Plan: Resume home meds. Adjust meds as needed. (7) Hyperkalemia Is this a current diagnosis for this admission?: Yes Plan: Hyperkalemia protocol. (8) Acute liver failure Qualifiers: Hepatic coma status: without hepatic coma Qualified Code(s): K72.00 - Acute and subacute hepatic failure without coma Is this a current diagnosis for this admission?: Yes Plan: Presenting with elevated PT/INR, elevated liver chemistries and direct hyper anny irubinemia. Home medications are acetaminophen and aspirin 325. Patient has dementia and lives in assisted living very unlikely this is due to EtOH abuse. Not sure if acetaminophen or aspirin are the cause of this liver failure. We will hold acetaminophen and aspirin. Will obtain acetaminophen and aspirin use. Volume decision guided by volume status, Monitor for bleeding. Daily liver chemistries, PT/INR. - Time Time Spent with patient: 35 or more minutes Anticipated Discharge Disposition: Assisted Living with Home Health Services Anticipated Discharge Timeframe: within 48 hours
[2020-02-12] MEDS ORDERED: ONDANSETRON HCL INJ/PF 4 MG/2 ML SDV IV ONE (14:32)
[2020-02-12] MEDS ORDERED: NORMAL SALINE 1000 ML 1,000 ML IV ONE (14:57)
[2020-02-12] MEDS ORDERED: CALCIUM GLUCONATE 1000 MG/10 ML INJ IV ONE (15:00)
[2020-02-12] MEDS ORDERED: ALBUTEROL SULFATE 0.042% NEB (1.25 MG/3 ML) AMPUL NEB ONE (15:00)
[2020-02-12] MEDS: CEFTRIAXONE 1 GM/D5W RTU 1 GM/50 ML RTUPB IV SCH (15:30)
--- NOTE | 2020-02-12 15:59 | PDOC CONSULTATION ---
Consultation Consult Date: 02/12/20 Provider Consulted: TONY MYERS History of Present Illness Admission Date/PCP: 02/12/20 14:05 GARY VILLALOBOS MD Patient complains of: Upper GI bleeding History of Present Illness: KAYLENE BENDER is a 89 year old female, with history of severe, chronic diastolic CHF, HTN, HLD, DM2 and dementia, who underwent right hip hemiarthroplasty on February 06, 2020 and released on 02/07/20. She was sent to a [place] and returns to the ED today with sudden onset of upper GI bleeding with heavy hematemesis with both fresh blood and blood clots. The patient has little recollection of the events, however she recalls having had surgery few days ago and to be released to a intermediate. Her H&H has decreased to 8.7 25.8, respectively with elevated PT PTT and INR. In addition, her liver profile demonstrates hyperbilirubinemia (3.1) with a direct of only 0.7. She is currently taking only aspirin 325 mg p.o. daily as a blood thinner. Past Medical History Cardiac Medical History: Reports: Hyperlipidema, Hypertension Pulmonary Medical History: Reports: Asthma Endocrine Medical History: Reports: Diabetes Mellitus Type 2 GI Medical History: Reports: Gastroesophageal Reflux Disease Musculoskeltal Medical History: Reports: Arthritis - OA Psychiatric Medical History: Denies: Depression Past Surgical History Past Surgical History: Reports: Orthopedic Surgery - Right hip arthroplasty 02/06/2020 Social History Smoking Status: Unknown if Ever Smoked Frequency of Alcohol Use: None Hx Recreational Drug Use: No Hx Prescription Drug Abuse: No Family History Family History: Reviewed & Not Pertinent, Malignancy - Mother passed from ovarian cancer Parental Family History Reviewed: No Children Family History Reviewed: No Sibling(s) Family History Reviewed.: No Medication/Allergy Home Medications: Montelukast Sodium [Singulair 10 mg Tablet] 10 mg PO QHS 02/09/11 Budesonide/Formoterol Fumarate [Symbicort HFA 160-4.5 mcg Inhaler 6 gm] 2 puff IH Q12 02/17/18 Omeprazole 20 mg PO DAILY 02/17/18 Acetaminophen [Tylenol 325 mg Tablet] 650 mg PO Q6HP PRN MDD 3 GRAMS 02/04/20 Furosemide [Lasix 40 mg Tablet] 40 mg PO BID 02/04/20 Lidocaine [Aspercreme Lidocaine] 1 patch TOP DAILY 12/29/20 Metoprolol Succinate [Toprol Xl 50 mg Tab.sr] 50 mg PO DAILY 02/04/20 Potassium Chloride [Klor-Con 10 Meq Tablet ER] 10 meq PO BID 02/04/20 Tiotropium [place] [Spiriva Respimat] 2 inh IH DAILY 02/04/20 Tramadol HCl [Ultram 50 mg Tablet] 50 mg PO Q6HP PRN 02/04/20 Aspirin [Aspirin 325 mg Tablet] 325 mg PO DAILY tablet 02/07/20 Allergies/Adverse Reactions: ciprofloxacin [From Cipro] Allergy (Verified 08/08/16 21:23) lisinopril [Lisinopril] Allergy (Verified 07/06/16 16:01) Sulfa (Sulfonamide Antibiotics) Allergy (Verified 08/08/16 21:23) naproxen sodium [From Aleve] Adverse Reaction (Verified 07/06/16 16:01) Chest pain Physical Exam Vital Signs: Temp Pulse Resp BP Pulse Ox 98.9 F 95 18 129/33 H 98 02/12/20 04:45 02/12/20 04:45 02/12/20 04:45 02/12/20 04:45 02/12/20 04:45 Intake & Output 02/11/20 02/12/20 02/13/20 06:59 06:59 06:59 Intake Total 500 Balance 500 Weight 79 kg General appearance: PRESENT: no acute distress, obese, other - Dried blood around her lips Head exam: PRESENT: atraumatic Eye exam: PRESENT: EOMI Mouth exam: PRESENT: dry mucosa Teeth exam: PRESENT: edentulous Neck exam: PRESENT: full ROM Respiratory exam: PRESENT: clear to auscultation anny Cardiovascular exam: PRESENT: RRR GI/Abdominal exam: PRESENT: distended - Not tender, no surgical scars appreciated, soft Rectal exam: PRESENT: deferred Extremities exam: PRESENT: +2 edema - Of both lower extremities right more the left Musculoskeletal exam: PRESENT: other - Upper extremities = good range of motion Lower extremity = decreased range of motion of the right knee, moderate motion of the left knee with good range of motion of the ankles and toes; right lateral thigh surgical scar covered with dressings clean dry, and intact Psychiatric exam: PRESENT: flat affect Skin exam: PRESENT: jaundice, warm Results Laboratory Results: 02/12/20 12:09 02/12/20 05:35 02/12/20 02/12/20 02/12/20 05:35 09:32 12:09 WBC 25.1 H RBC 2.37 L Hgb 8.7 L Hct 25.8 L MCV 109 H MCH 36.7 H MCHC 33.6 RDW 15.7 H Plt Count 168 Seg Neutrophils % Not Reportable Sodium 131.6 L Potassium 5.6 H Chloride 101 Carbon Dioxide 26 Anion Gap 5 BUN 31 H Creatinine 0.72 Est GFR ( Amer) > 60 Glucose 172 H Calcium 7.5 L Total Bilirubin 3.1 H AST 102 H Alkaline Phosphatase 273 H Total Protein 6.1 L Albumin 2.1 L Urine Color MICHELLE Urine Appearance SLIGHTLY-CLOUDY Urine pH 5.0 Ur Specific [place] 1.021 Urine Protein NEGATIVE Urine Glucose (UA) NEGATIVE Urine Ketones NEGATIVE Urine Blood NEGATIVE Urine Nitrite NEGATIVE Ur Leukocyte Esterase NEGATIVE Urine WBC (Auto) 2 Urine RBC (Auto) 1 Blood Type Antibody Screen 02/12/20 12:09 WBC RBC Hgb Hct MCV MCH MCHC RDW Plt Count Seg Neutrophils % Sodium Potassium Chloride Carbon Dioxide Anion Gap BUN Creatinine Est GFR ( Amer) Glucose Calcium Total Bilirubin AST Alkaline Phosphatase Total Protein Albumin Urine Color Urine Appearance Urine pH Ur Specific [place] Urine Protein Urine Glucose (UA) Urine Ketones Urine Blood Urine Nitrite Ur Leukocyte Esterase Urine WBC (Auto) Urine RBC (Auto) Blood Type O POSITIVE Antibody Screen NEGATIVE Assessment & Plan - Diagnosis (1) Acute anemia Is this a current diagnosis for this admission?: Yes (2) Acute GI bleeding Is this a current diagnosis for this admission?: Yes (3) Hyperbilirubinemia Is this a current diagnosis for this admission?: Yes (4) Closed right hip fracture Qualifiers: Encounter type: initial encounter Qualified Code(s): S72.001A - Fracture of unspecified part of neck of right femur, initial encounter for closed fracture Is this a current diagnosis for this admission?: No - Plan Summary Plan Summary: Assessment: 89-year-old female with sudden onset of upper gastrointestinal bleeding Blood work reveals anemia with hemoglobin hematocrit of 8.7 and 25.8, respectively Elevated PT, INR, and PTT Elevated total bilirubin 3.1 with a direct bilirubin of only 0.7; this may represent intrinsic parenchymal liver disease, not necessarily a surgical condition Patient on aspirin 25 mg p.o. daily following her hip surgery on July Hyperkalemia 5.5 with this elevation of BUN 21 creatinine 0.7 The patient clinical picture may represent liver failure most likely secondary to medication such as NSAIDs or other medications Plan: Agree with admission N.p.o. IV fluids Insert NG tube with gastric lavage and then keep it on low continuous suction Insert Jimenez catheter Aggressive intravenous rehydration Obtain CT scan abdomen pelvis with IV contrast only tonight the following IV rehydration I am recommending a review of the patient medications to avoid any additional hepatotoxicity No surgical intervention or procedure planned at this point until the patient's clinical picture is fully investigated and a diagnosis has been contemplated
[2020-02-12] MEDS ORDERED: MORPHINE SULFATE 10 MG/ML INJ IV PRN (16:11)
[2020-02-12] MEDS ORDERED: NORMAL SALINE 1000 ML 1,000 ML IV PRN (18:26)
--- NOTE | 2020-02-12 19:08 | RADIOLOGY REPORT (SQ) ---
EXAM DESCRIPTION: CT ABD/PELVIS WITH IV ONLY IMAGES COMPLETED DATE/TIME: 02/12/2020 3:19 pm REASON FOR STUDY: elevated lfts. Diffuse abdominal pain. COMPARISON: None. TECHNIQUE: CT scan of the abdomen and pelvis performed using helical scanning technique with dynamic intravenous contrast injection. No oral contrast. Images reviewed with lung, soft tissue, and bone windows. Reconstructed coronal and sagittal MPR images reviewed. Delayed images for evaluation of the urinary system also acquired. All images stored on PACS. All CT scanners at this facility use dose modulation, iterative reconstruction, and/or weight based d osing when appropriate to reduce radiation dose to as low as reasonably achievable (ALARA). [facility]: Dose Right [facility]: CareDose [facility]: Dose Right [facility]: Teradose 4D [facility]: Right[employer] CONTRAST TYPE AND DOSE: contrast/concentration: Isovue 350.00 mmol/ml; Total Contrast Delivered: 82. 0 ml; Total Saline Delivered: 61.0 ml RENAL FUNCTION: GFR > 60. RADIATION DOSE: CT Rad equipment meets quality standard of care and radiation dose reduction techniq ues were employed. CTDIvol: 16.6 - 18.2 mGy. DLP: 1814 mGy-cm.. LIMITATIONS: None. FINDINGS: LOWER CHEST: Atelectasis in the lingula. No focal consolidation or significant ground-gla ss attenuation. No pleural effusion. LIVER: Shrunken nodular contour of the liver with heterogeneous enhancement. No focal hepatic mass. Hepatic and portal veins are patent. No biliary ductal dilation. SPLEEN: Normal size. No focal lesions. PANCREAS: No masses. No significant calcifications. No adjacent inflammation or peripancreatic fluid collections. Pancreatic duct not dilated. GALLBLADDER: Gallstones. No inflammatory changes to suggest cholecystitis. ADRENAL GLANDS: No significant masses or asymmetry. RIGHT KIDNEY AND URETER: No solid masses. No significant calcifications. No hydronephrosis or hyd roureter. LEFT KIDNEY AND URETER: No solid masses. No significant calcifications. No hydronephrosis or hydr oureter. AORTA AND VESSELS: No aneurysm. No dissection. Renal arteries, SMA, celiac without stenosis. RETROPERITONEUM: No retroperitoneal adenopathy, hemorrhage or masses. BOWEL AND PERITONEAL CAVITY: Diffuse colon wall thickening particularly of the cecum and ascending co joan. No bowel obstruction. No colonic mass. Small amount of ascites surrounds the liver, in the pe ricolic gutters and pelvis. No pneumoperitoneum. APPENDIX: Not visualized. PELVIS: Evaluation is limited due to beam hardening artifact. No pelvic mass. ABDOMINAL WALL: Diffuse subcutaneous edema. No subcutaneous mass or focal abscess. BONES: Right hip arthroplasty and left intramedullary anastasiya and pin fixation. Interval development of a mild compression deformity at the superior endplate T11. Interval development of a moderate compre ssion fracture at L5. No retropulsed fracture fragments. Chronic moderate compression fracture at L 2 and L4, stable from prior. OTHER: No other significant finding. IMPRESSION: 1. Interval development of a mild compression deformity at the superior endplate of T11 NA moderate c ompression fracture at L5 since prior examination. Findings are technically age indeterminate and ma y represent chronic or acute fractures. Clinical correlation for patient's pain recommended. 2. Shrunken nodular contour of the liver suggestive of hepatic cirrhosis. Clinical correlation. 3. Small amount of ascites. 4. Diffuse subcutaneous edema suggestive of fluid overload. 5. Colon wall thickening is likely reactive related to cirrhosis. Cannot entirely exclude colitis. Clinical correlation. 6. Cholelithiasis. No CT evidence of acute cholecystitis. TECHNICAL DOCUMENTATION: JOB ID: [id number] Quality ID # [id number]: Final reports with documentation of one or more dose reduction techniques (e.g., Au tomated exposure control, adjustment of the mA and/or kV according to patient size, use of iterative reconstruction technique) 2010 [employer]- All Rights Reserved Reading location - IP/workstation name: [email or web address]
--- NOTE | 2020-02-12 19:21 | RADIOLOGY REPORT (SQ) ---
EXAM DESCRIPTION: KUB/ABDOMEN (SINGLE VIEW) IMAGES COMPLETED DATE/TIME: 02/12/2020 7:12 pm REASON FOR STUDY: NG COMPARISON: 02/17/2018 NUMBER OF VIEWS: One view. TECHNIQUE: Supine radiographic image of the abdomen acquired. LIMITATIONS: None. FINDINGS: BOWEL GAS PATTERN: Normal bowel gas pattern. No dilated loops. CALCIFICATIONS: No suspicious calcifications. SOFT TISSUES: No gross mass or suggestion of organomegaly. HARDWARE: NG tube is 8 cm inside the stomach. BONES: No acute fracture. No worrisome bone lesions. OTHER: No other significant finding. IMPRESSION: NG tube as described. TECHNICAL DOCUMENTATION: JOB ID: [id number] 2010 [employer]- All Rights Reserved Reading location - IP/workstation name: [email or web address]
[2020-02-12 19:50] LABS: SALICYLATE 1.5 mg/dL (2.0-20.0)
[2020-02-12 19:51] LABS: ACETAMINOPHEN < 10 ug/mL (10-30); BLOOD UREA NITROGEN 35 mg/dL (7-20); GLUCOSE 88 mg/dL (75-110)
[2020-02-12 20:00] LABS: ANION GAP 12 (5-19); CALCIUM 7.8 mg/dL (8.4-10.2); CHLORIDE 104 mmol/L (98-107)
[2020-02-12 20:04] LABS: CARBON DIOXIDE 16 mmol/L (22-30); POTASSIUM 5.9 mmol/L (3.6-5.0)
[2020-02-12] MEDS: INSULIN LISPRO 100 UNIT/ML 3 ML VIAL SUBCUT SCH ×2 (23:30→23:31)
[2020-02-12] MEDS: FUROSEMIDE 20 MG TABLET PO SCH (23:31)
--- NOTE | 2020-02-12 23:40 | EKG REPORT ---
SEVERITY:- ABNORMAL ECG - SINUS RHYTHM NONSPECIFIC INTRAVENTRICULAR CONDUCTION DELAY ABNRM R PROG, CONSIDER ASMI OR LEAD PLACEMENT : Confirmed by: Dotty Ortiz 12-Feb-2020 23:40:10
[2020-02-13] MEDS: INSULIN LISPRO 100 UNIT/ML 3 ML VIAL SUBCUT SCH ×3 (07:01→17:00)
[2020-02-13] MEDS ORDERED: DEXTROSE 5%-NORMAL SALINE 1,000 ML IV PRN (07:31)
[2020-02-13] MEDS ORDERED: ONDANSETRON HCL INJ/PF 4 MG/2 ML SDV IV PRN (08:00)
[2020-02-13] MEDS ORDERED: ONDANSETRON 4 MG TAB.RAPDIS PO PRN (08:00)
[2020-02-13] MEDS ORDERED: PROMETHAZINE HCL INJ 25 MG/1 ML VIAL IV PRN (08:00)
[2020-02-13] MEDS: FUROSEMIDE 20 MG TABLET PO SCH ×2 (09:47→17:01)
[2020-02-13] MEDS: METOPROLOL SUCCINATE 50 MG TAB.SR.24H PO SCH (09:47)
[2020-02-13] MEDS ORDERED: FUROSEMIDE 20 MG TABLET PO SCH ×2 (10:00→22:00)
[2020-02-13] MEDS: FLUTICASONE/UMECLIDIN/VILANTER 100-62.5-25 MCG/DOSE IH SCH (10:54)
[2020-02-13] MEDS ORDERED: METOPROLOL TARTRATE PF/INJ 5 MG/5 ML SDV IV PRN ×2 (11:12→21:02)
[2020-02-13] MEDS ORDERED: FUROSEMIDE INJ/PF 20 MG/2 ML SDV IV SCH (11:15)
[2020-02-13] MEDS ORDERED: DEXTROSE 10%-WATER 1,000 ML IV PRN (11:44)
--- NOTE | 2020-02-13 11:44 | PDOC PROGRESS REPORT ---
Subjective Date:: 02/13/20 Subjective:: KAYLENE BENDER is a 89 year old female past medical history of CHF, hypertension, hyperlipidemia, diabetes, dementia, resident of [facility] assisted living who was recently hospitalized at [facility] on 02/04/2020 and discharged on 02/07/2020 for right hip fracture after she underwent right hemiarthroplasty, patient was discharged home on aspirin 325 daily for DVT prophylaxis for 6 weeks given history of recent right hip fracture, pain is brought to ED after being observed to have some dried blood at the corner of her mouth at the assisted living that she is living, prior to ED arrival patient had a witnessed hematemesis, due to dementia patient does not provide much history when asked why she is in ED she states she is here for right fracture, when asked if she remembers that she had an episode of hematemesis she states yes, she denies any abdominal pain, nausea, vomiting, diarrhea, constipation, chest pain, shortness of breath. In ED she was noted to have leukocytosis with hemoglobin of 8.7, stool guaiac positive, elevated potassium and liver chemistries, UA negative Covid negative. Hospitalist consulted for admission. 02/13/2020. Saw patient this morning, noted to be very somnolent and lethargic, easily arousable but falls back to sleep, does not answer any questions, noted to have labored breathing and tachypnea, as per primary nurse patient has not had any bowel movement or repeat hematemesis since yesterday. Unfortunately repeat labs have been done due to no access even the they have tried several times, patient is pending a PICC line placement, CT abdomen shows hepatic cirrhosis with small amount of ascites, mild thickening likely reactive related to cirrhosis. Patient patient's son who is in the room updated about patient's status, inquired about CODE STATUS, is stating that his mother used to be DNR but last year he revoked it, when I mentioned to him that on the paperwork from [facility] says that she is DNR, he is saying that probably they are not updated, he wants CODE STATUS to remain DNR until he discusses it with his 2 other siblings. Reason For Visit: UPPER GI BLEED Physical Exam Vital Signs: Temp Pulse Resp BP Pulse Ox 97.1 F 142 H 31 H 98/57 L 94 02/13/20 08:00 02/13/20 08:00 02/13/20 08:00 02/13/20 08:00 02/13/20 08:00 Intake & Output 02/12/20 02/13/20 02/14/20 06:59 06:59 06:59 Intake Total 1650 Output Total 900 Balance 750 Weight 62.2 kg General appearance: PRESENT: other - Labored breathing and tachypnea Head exam: PRESENT: atraumatic, normocephalic Respiratory exam: PRESENT: crackles, decreased breath sounds, tachypnea. ABSENT: rales, rhonchi, wheezes Cardiovascular exam: PRESENT: RRR, tachycardia. ABSENT: diastolic murmur, rubs, systolic murmur GI/Abdominal exam: PRESENT: normal bowel sounds, soft. ABSENT: distended, guarding, mass, organolmegaly, rebound, tenderness Extremities exam: PRESENT: full ROM. ABSENT: calf tenderness, clubbing, pedal edema Neurological exam: PRESENT: other - Somnolent and lethargic, easily arousable. Results Laboratory Results: 02/12/20 12:09 02/12/20 19:00 02/12/20 02/12/20 02/12/20 12:09 12:09 19:00 WBC 25.1 H RBC 2.37 L Hgb 8.7 L Hct 25.8 L MCV 109 H MCH 36.7 H MCHC 33.6 RDW 15.7 H Plt Count 168 Seg Neutrophils % Not Reportable Sodium 131.9 L Potassium 5.9 H Chloride 104 Carbon Dioxide 16 L D Anion Gap 12 BUN 35 H Creatinine 0.84 Est GFR ( Amer) > 60 Glucose 88 Calcium 7.8 L Blood Type O POSITIVE Antibody Screen NEGATIVE Impressions: KUB X-Ray 02/12/20 00:00 IMPRESSION: NG tube as described. Abdomen/Pelvis CT 02/12/20 15:45 IMPRESSION: 1. Interval development of a mild compression deformity at the superior endplate of T11 NA moderate compression fracture at L5 since prior examination. Findings are technically age indeterminate and may represent chronic or acute fractures. Clinical correlation for patient's pain recommended. 2. Shrunken nodular contour of the liver suggestive of hepatic cirrhosis. Clinical correlation. 3. Small amount of ascites. 4. Diffuse subcutaneous edema suggestive of fluid overload. 5. Colon wall thickening is likely reactive related to cirrhosis. Cannot en tirely exclude colitis. Clinical correlation. 6. Cholelithiasis. No CT evidence of acute cholecystitis. Assessment and Plan - Diagnosis (1) Acute GI bleeding Is this a current diagnosis for this admission?: Yes Plan: Repeat hematemesis since yesterday. No bowel movement since admission. Unfortunately no repeat labs have been obtained due to unsuccessful venous access. Most likely upper GI bleed. Likely due to NSAIDs. Was recently discharged on aspirin 325 for DVT prophylaxis after was hospitalized for right hip fracture. Status post 2 PRBC transfusion. Monitor H&H, Protonix drip, supportive transfusion, keep hemoglobin above 9 given history of CAD. Surgery consulted. No intervention planned at this point. (2) Acute anemia Is this a current diagnosis for this admission?: Yes Plan: Acute blood loss anemia. Plan as per #1. (3) Congestive heart failure (CHF) Qualifiers: Heart failure type: systolic Heart failure chronicity: chronic Qualified Code(s): I50.22 - Chronic systolic (congestive) heart failure Is this a current diagnosis for this admission?: Yes Plan: Volume overloaded. SPO2 WNL on RA. Tachypneic and labored breathing. Positive fluid balance. Patient is status post 2 L of NS transfusion on admission and 2 PRBC transfusion. Strict in and out, fluid restriction, IV Lasix, ZEB, daily weight, cardiac diet. (4) Dementia Is this a current diagnosis for this admission?: Yes Plan: Alert and oriented x1, cooperative and very pleasant. Monitor for fall. Supportive care. (5) Diabetes mellitus Qualifiers: Is this a current diagnosis for this admission?: Yes Plan: To be hypoglycemic on this admission. Has been n.p.o. due to acute GI bleed. Will start on D10 NS guided by volume status. Diabetic diet, sliding scale insulin. Hypoglycemia protocol. Accu-Chek. Resume home meds upon discharge. (6) Hypertension Qualifiers: Is this a current diagnosis for this admission?: Yes Plan: Resume home meds. Adjust meds as needed. (7) Hyperkalemia Is this a current diagnosis for this admission?: Yes Plan: Hyperkalemia protocol. (8) Acute liver failure Qualifiers: Hepatic coma status: without hepatic coma Qualified Code(s): K72.00 - Acute and subacute hepatic failure without coma Is this a current diagnosis for this admission?: Yes Plan: No history of cirrhosis or EtOH abuse as per son. Presenting with elevated PT/INR, elevated liver chemistries and direct hyper bilirubinemia. Chart review shows persistent ALT and alkaline phosphatase elevation and low albumin from previous admissions. CT abdomen shows mild ascites and hepatic cirrhosis. Home medications are acetaminophen and aspirin 325. Aspirin level WNL. Acetaminophen level WNL. No repeat labs due to difficult venous access. Not sure if acetaminophen or aspirin are the cause of this liver failure. Follow-up PT/INR, ammonia level, liver chemistries and T bili. Monitor for bleeding. (9) Metabolic encephalopathy Is this a current diagnosis for this admission?: Yes Plan: Likely due to underlying liver cirrhosis. Will obtain ammonia level. Monitor vitals. Fall, aspiration and seizure precautions. - Time Time Spent with patient: 35 or more minutes Anticipated Discharge Disposition: Assisted Living with Home Health Services Anticipated Discharge Timeframe: within 72 hours
--- NOTE | 2020-02-13 12:13 | PDOC PROGRESS REPORT ---
Subjective Date:: 02/13/20 Subjective:: Patient obtunded, poorly responsive, no reported hematemesis Reason For Visit: UPPER GI BLEED Physical Exam Vital Signs: Temp Pulse Resp BP Pulse Ox 97.1 F 142 H 31 H 98/57 L 94 02/13/20 08:00 02/13/20 08:00 02/13/20 08:00 02/13/20 08:00 02/13/20 08:00 Intake & Output 02/12/20 02/13/20 02/14/20 06:59 06:59 06:59 Intake Total 1650 Output Total 900 Balance 750 Weight 62.2 kg General appearance: PRESENT: obese, other - Patient obtunded, not arousable, not responsive GI/Abdominal exam: PRESENT: soft Results Laboratory Results: 02/12/20 12:09 02/12/20 19:00 02/12/20 02/12/20 02/12/20 12:09 12:09 19:00 WBC 25.1 H RBC 2.37 L Hgb 8.7 L Hct 25.8 L MCV 109 H MCH 36.7 H MCHC 33.6 RDW 15.7 H Plt Count 168 Seg Neutrophils % Not Reportable Sodium 131.9 L Potassium 5.9 H Chloride 104 Carbon Dioxide 16 L D Anion Gap 12 BUN 35 H Creatinine 0.84 Est GFR ( Amer) > 60 Glucose 88 Calcium 7.8 L Blood Type O POSITIVE Antibody Screen NEGATIVE Impressions: KUB X-Ray 02/12/20 00:00 IMPRESSION: NG tube as described. Abdomen/Pelvis CT 02/12/20 15:45 IMPRESSION: 1. Interval development of a mild compression deformity at the superior endplate of T11 NA moderate compression fracture at L5 since prior examination. Findings are technically age indeterminate and may represent chronic or acute fractures. Clinical correlation for patient's pain recommended. 2. Shrunken nodular contour of the liver suggestive of hepatic cirrhosis. Clinical correlation. 3. Small amount of ascites. 4. Diffuse subcutaneous edema suggestive of fluid overload. 5. Colon wall thickening is likely reactive related to cirrhosis. Cannot entirely exclude colitis. Clinical correlation. 6. Cholelithiasis. No CT evidence of acute cholecystitis. 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 Blood work reveals acute anemia Elevated liver enzymes with indirect hyperbilirubinemia as per liver disease CT scan abdomen pelvis significant for cirrhosis, cause unknown. However, after discussion with the son it appears that the patient is use a large amount of Tylenol during the past years. This might caused the onset of liver disease and eventually cirrhosis Patient mental status is worrisome, she is obtunded reported responsive Plan: Due to the patient poor general conditions and the severely obtunded mental status as per liver encephalopathy compounded with dementia, I would recommend no procedure at this time particularly an upper with or without lowser GI endoscopy with IV sedation. The patient might not be able to completely metabolize the anesthetic due to her liver disease with worsening of her mental status, potentially requiring long-term ventilation. I have explained the above to the son. He understands. He wishes to have a meeting with a primary care physician and the egg caser to discuss CODE STATUS and further care plan. I have conveyed the above message to the primary care physician, Dr. Chávez. I will sign off at this time. Please call me back with questions.
[2020-02-13] MEDS: CEFTRIAXONE 1 GM/D5W RTU 1 GM/50 ML RTUPB IV SCH (14:32)
[2020-02-13] MEDS: LACTULOSE SYRUP 20 GM/30 ML UDCUP PO SCH ×3 (14:35→17:00)
[2020-02-13 14:43] LABS: HEMATOCRIT 31.8 % (36.0-47.0); HEMOGLOBIN 10.5 g/dL (12.0-15.5); MEAN CORPUSCULAR HEMOGLOBIN 33.6 pg (27.0-33.4); MEAN CORPUSCULAR HGB CONC 33.1 g/dL (32.0-36.0); PLATELET COUNT 132 10^3/uL (150-450); RED BLOOD COUNT 3.13 10^6/uL (3.72-5.28); RED CELL DISTRIBUTION WIDTH 20.3 % (11.5-14.0); WHITE BLOOD COUNT 26.7 10^3/uL (4.0-10.5)
--- NOTE | 2020-02-13 14:43 | RADIOLOGY REPORT (SQ) ---
EXAM DESCRIPTION: PICC INSERTION IMAGES COMPLETED DATE/TIME: 02/13/2020 2:07 pm REASON FOR STUDY: no access COMPARISON: None. FLUOROSCOPY TIME: 1.16 minutes 2 images saved to PACS. TECHNIQUE: Fluoroscopic and ultrasound guided PICC placement. LIMITATIONS: None. PROCEDURE: After written consent and assessment were obtained, the patient was brought into the fluo roscopy room and placed supine on the table. Ultrasound evaluation of potential access sites were per formed. After successfully identifying a patent right upper extremity brachiocephalic vein, the right upper arm was prepped and draped in a sterile fashion along with the ultrasound probe. The entry sit e was anesthetized with 1% lidocaine. A 21 gauge 7 cm needle was advanced through the skin and into t he right brachiocephalic vein under live ultrasound guidance. An ultrasound image was saved to PACS confirming access site. A .018 guide wire was then inserted through the needle and into the venous s ystem. The needle was then removed and an 11 blade scalpel was used to make a 1cm skin incision. A 5 fr peel-away sheath was advanced over the wire and into the venous system. A measurement was then ma de using the existing wire and live fluoroscopic guidance. The wire was then removed and trimmed. The PICC was advanced through the peel-away sheath and into the venous system. The peel-away sheath was removed and the catheter was adhered to the patients arm with a stat lock. The catheter was then aspi rated and flushed and a sterile bandage was placed over the access site. A fluoroscopic spot image w as saved to PACS confirming the catheter tip within the SVC. IMPRESSION: SUCCESSFUL PLACEMENT OF A 5 FR DUAL LUMEN 44 CM PICC IN THE RIGHT BRACHYCEPHALIC VEIN. COMMENT: Patient medication list reviewed: Yes- Quality ID# [id number]:Eligible professional attests to doc umenting in the medical record they obtained, updated, or reviewed the patient's current medications. . Quality ID 145: Final reports for procedures using fluoroscopy that document radiation exposure selin jhonny, or exposure time and number of fluorographic images (if radiation exposure indices are not avail able) Quality ID #76: The patient was prepped and draped using maximum sterile barrier technique including cap, mask, sterile gown, sterile gloves, a large sterile sheet, hand hygiene, and 2% Chlorhexidine fo r cutaneous antisepsis. When ultrasound is used, sterile ultrasound techniques are followed requiring sterile gel and sterile probes. TECHNICAL DOCUMENTATION: JOB ID: [id number] 2010 [employer]- All Rights Reserved Reading location - IP/workstation name: [email or web address]
[2020-02-13 14:49] LABS: MEAN CORPUSCULAR VOLUME 102 fl (80-97)
[2020-02-13] MEDS ORDERED: NORMAL SALINE 10 ML SDV (AFTER EACH USE) IV PRN (15:00)
[2020-02-13 15:04] LABS: ALBUMIN 1.9 g/dL (3.5-5.0); ALKALINE PHOSPHATASE 158 U/L (38-126); BILIRUBIN,DIRECT 2.1 mg/dL (0.0-0.4); BILIRUBIN,TOTAL 5.4 mg/dL (0.2-1.3); BLOOD UREA NITROGEN 36 mg/dL (7-20); CALCIUM 8.3 mg/dL (8.4-10.2); PHOSPHORUS 5.5 mg/dL (2.5-4.5); TOTAL PROTEIN 5.2 g/dL (6.3-8.2)
[2020-02-13 15:09] LABS: CHLORIDE 105 mmol/L (98-107)
[2020-02-13 15:23] LABS: ABSOLUTE LYMPHOCYTES# (MANUAL) 1.3 10^3/uL (0.5-4.7); ABSOLUTE MONOCYTES # (MANUAL) 1.1 10^3/uL (0.1-1.4); ANISOCYTOSIS 2+; BAND NEUTROPHILS % (MANUAL) 1 % (3-5); BASOPHILS % (MANUAL) 0 % (0-2); EOSINOPHILS % (MANUAL) 1 % (0-6); GLUCOSE 57 mg/dL (75-110); LYMPHOCYTES % (MANUAL) 5 % (13-45); MONOCYTES % (MANUAL) 4 % (3-13); PLATELET COMMENT DECREASED; POTASSIUM 6.1 mmol/L (3.6-5.0); SEGMENTED NEUTROPHILS % (MAN) 89 % (42-78); TOTAL CELLS COUNTED 100
[2020-02-13 15:24] LABS: ANION GAP 24 (5-19); CARBON DIOXIDE 9 mmol/L (22-30)
[2020-02-13 15:25] LABS: PLATELET LARGE PRESENT; POLYCHROMASIA SLIGHT
[2020-02-13 15:26] LABS: TOXIC VACUOLATION PRESENT
[2020-02-13 15:27] LABS: OVALOCYTES SLIGHT; POIKILOCYTOSIS SLIGHT
[2020-02-13] MEDS ORDERED: LACTULOSE SYRUP 20 GM/30 ML UDCUP PR ONE (15:30)
[2020-02-13] MEDS ORDERED: SODIUM BICARBONATE 8.4% INJ 50 MEQ/50 ML DISP.SYRIN IV ONE ×2 (15:54→19:00)
[2020-02-13] MEDS ORDERED: DEXTROSE 5%-WATER 1000 ML 1,000 ML with SODIUM BICARBONATE 150 MEQ IV PRN ×2 (16:00)
[2020-02-13 16:10] LABS: ASPARTATE AMINO TRANSFERASE 4534 U/L (14-36)
[2020-02-13] MEDS ORDERED: SODIUM BICARBONATE 8.4% INJ 50 MEQ/50 ML DISP.SYRIN IV SCH (16:15)
[2020-02-13 16:17] LABS: INTERNATIONAL RATION (INR) 6.16; PROTHROMBIN TIME 53.7 SEC (11.4-15.4)
[2020-02-13] MEDS ORDERED: SODIUM BICARBONATE 8.4% INJ 50 MEQ/50 ML DISP.SYRIN ONE (16:37)
[2020-02-13 17:59] LABS: BLOOD UREA NITROGEN 37 mg/dL (7-20); CALCIUM 7.6 mg/dL (8.4-10.2); CARBON DIOXIDE 14 mmol/L (22-30); CHLORIDE 100 mmol/L (98-107); GLUCOSE 370 mg/dL (75-110); POTASSIUM 5.7 mmol/L (3.6-5.0)
[2020-02-13 18:08] LABS: ANION GAP 21 (5-19)
[2020-02-13] MEDS ORDERED: DOPAMINE HCL/DEXTROSE 5%-WATER 800 MG/250 ML RTUINJ IV PRN (18:26)
[2020-02-13] MEDS ORDERED: CALCIUM GLUCONATE 1000 MG/10 ML INJ IV ONE (18:30)
[2020-02-13 19:24] LABS: ARTERIAL BLOOD BASE EXCESS -8.4 mmol/L; ARTERIAL BLOOD H2CO3 0.58 mmol/L (1.05-1.35); ARTERIAL BLOOD O2 SATURATION 98.8 % (94-98); ARTERIAL BLOOD PH 7.44 (7.35-7.45); ARTERIAL BLOOD PO2 131.3 mmHg (80-100); ARTERIAL BLOOD TOTAL CO2 13.6 mmol/L (21-25)
[2020-02-13 19:26] LABS: ARTERIAL BLOOD FIO2 2L
[2020-02-13 19:28] LABS: ARTERIAL BLOOD PCO2 19.4 mmHg (35-45)
[2020-02-13] MEDS ORDERED: MIDODRINE HCL 5 MG TABLET PO SCH (19:45)
[2020-02-13] MEDS ORDERED: NORMAL SALINE 1000 ML 1,000 ML IV PRN (21:09)
[2020-02-13] MEDS ORDERED: PHYTONADIONE INJ 10 MG/1 ML AMPULE SUBCUT ONE (22:00)
[2020-02-13] MEDS: SODIUM POLYSTYRENE SULFONATE 15 GM/60 ML PO SCH (22:19)
[2020-02-13] MEDS: ALBUMIN HUMAN 12.5 GM/50 ML RTUINJ IV SCH (22:56)
[2020-02-13] MEDS: NORMAL SALINE 10 ML SDV (SCHEDULED) IV SCH (22:57)
[2020-02-13 23:26] LABS: ANION GAP 19 (5-19); BLOOD UREA NITROGEN 41 mg/dL (7-20); CALCIUM 8.2 mg/dL (8.4-10.2); CARBON DIOXIDE 18 mmol/L (22-30); CHLORIDE 103 mmol/L (98-107); GLUCOSE 149 mg/dL (75-110); POTASSIUM 5.3 mmol/L (3.6-5.0)
[2020-02-13] MEDS ORDERED: FUROSEMIDE INJ/PF 20 MG/2 ML SDV ONE (23:37)
[2020-02-13] MEDS: SODIUM BICARBONATE 8.4% INJ 50 MEQ/50 ML DISP.SYRIN IV PRN (23:57)
[2020-02-14] MEDS ORDERED: METOPROLOL TARTRATE PF/INJ 5 MG/5 ML SDV IV PRN ×2 (00:09→02:07)
[2020-02-14] MEDS: FUROSEMIDE INJ/PF 20 MG/2 ML SDV IV SCH ×3 (00:22→21:15)
[2020-02-14] MEDS: INSULIN LISPRO 100 UNIT/ML 3 ML VIAL SUBCUT SCH ×4 (00:24→17:49)
[2020-02-14] MEDS: ALBUMIN HUMAN 12.5 GM/50 ML RTUINJ IV SCH ×3 (00:34→06:12)
[2020-02-14] MEDS ORDERED: DILTIAZEM HCL/D5W 125 MG/125 ML RTUINJ IV PRN (02:59)
[2020-02-14 03:02] LABS: ANION GAP 19 (5-19); BLOOD UREA NITROGEN 42 mg/dL (7-20); CALCIUM 8.3 mg/dL (8.4-10.2); CARBON DIOXIDE 20 mmol/L (22-30); CHLORIDE 104 mmol/L (98-107); GLUCOSE 153 mg/dL (75-110); POTASSIUM 5.1 mmol/L (3.6-5.0)
[2020-02-14] MEDS ORDERED: ALBUMIN HUMAN 25.0 GM/100 ML RTUINJ IV ONE (04:31)
[2020-02-14 04:41] LABS: HEMATOCRIT 24.1 % (36.0-47.0); MEAN CORPUSCULAR HEMOGLOBIN 33.2 pg (27.0-33.4); MEAN CORPUSCULAR VOLUME 101 fl (80-97); RED CELL DISTRIBUTION WIDTH 19.5 % (11.5-14.0); WHITE BLOOD COUNT 18.4 10^3/uL (4.0-10.5)
[2020-02-14 04:47] LABS: PLATELET COUNT 93 10^3/uL (150-450)
[2020-02-14 05:03] LABS: ABSOLUTE LYMPHOCYTES# (MANUAL) 1.1 10^3/uL (0.5-4.7); ABSOLUTE MONOCYTES # (MANUAL) 0.6 10^3/uL (0.1-1.4); BAND NEUTROPHILS % (MANUAL) 4 % (3-5); BASOPHILS % (MANUAL) 0 % (0-2); EOSINOPHILS % (MANUAL) 0 % (0-6); LYMPHOCYTES % (MANUAL) 6 % (13-45); MONOCYTES % (MANUAL) 3 % (3-13); SEGMENTED NEUTROPHILS % (MAN) 87 % (42-78); TOTAL CELLS COUNTED 100
[2020-02-14 05:04] LABS: ANION GAP 17 (5-19); BLOOD UREA NITROGEN 42 mg/dL (7-20); CALCIUM 7.8 mg/dL (8.4-10.2); CARBON DIOXIDE 20 mmol/L (22-30); CHLORIDE 106 mmol/L (98-107); GLUCOSE 147 mg/dL (75-110); POTASSIUM 5.1 mmol/L (3.6-5.0)
[2020-02-14 05:05] LABS: ANISOCYTOSIS 2+; PLATELET COMMENT DECREASED; POIKILOCYTOSIS 1+; TARGET CELLS 1+
[2020-02-14 05:10] LABS: INTERNATIONAL RATION (INR) 10.97; PROTHROMBIN TIME 83.4 SEC (11.4-15.4)
[2020-02-14] MEDS ORDERED: FLUDROCORTISONE ACETATE 0.1 MG TABLET PO SCH ×2 (06:00→10:00)
[2020-02-14] MEDS ORDERED: ALBUMIN HUMAN 12.5 GM/50 ML RTUINJ IV ONE (06:07)
[2020-02-14] MEDS ORDERED: FLUDROCORTISONE ACETATE 0.1 MG TABLET ONE (06:07)
[2020-02-14] MEDS: SODIUM POLYSTYRENE SULFONATE 15 GM/60 ML PO SCH (06:08)
[2020-02-14] MEDS: SODIUM BICARBONATE 8.4% INJ 50 MEQ/50 ML DISP.SYRIN IV PRN (06:33)
[2020-02-14] MEDS ORDERED: NORMAL SALINE 250 ML IV PRN ×2 (06:33)
[2020-02-14 08:37] LABS: HEPATITS B SURFACE ANTIGEN Negative (Negative)
[2020-02-14] MEDS ORDERED: CEFEPIME 1 GM/D5W RTU 1 GM/50 ML RTUPB IV SCH (10:00)
[2020-02-14 10:08] LABS: HEPATITIS C VIRUS ANTIBODY 0.1 s/co ratio (0.0-0.9)
[2020-02-14] MEDS: LACTULOSE SYRUP 20 GM/30 ML UDCUP PO SCH ×3 (10:49→17:49)
[2020-02-14] MEDS: FLUTICASONE/UMECLIDIN/VILANTER 100-62.5-25 MCG/DOSE IH SCH (10:49)
[2020-02-14] MEDS: NORMAL SALINE 10 ML SDV (SCHEDULED) IV SCH ×2 (10:49→21:28)
[2020-02-14] MEDS: METOPROLOL SUCCINATE 50 MG TAB.SR.24H PO SCH (10:49)
[2020-02-14 12:05] VITALS: BP 82/41
--- NOTE | 2020-02-14 15:55 | PDOC PROGRESS REPORT ---
Subjective Date:: 02/14/20 Subjective:: KAYLENE BENDER is a 89 year old female past medical history of CHF, hypertension, hyperlipidemia, diabetes, dementia, resident of [facility] assisted living who was recently hospitalized at [facility] on 02/04/2020 and discharged on 02/07/2020 for right hip fracture after she underwent right hemiarthroplasty, patient was discharged home on aspirin 325 daily for DVT prophylaxis for 6 weeks given history of recent right hip fracture, pain is brought to ED after being observed to have some dried blood at the corner of her mouth at the assisted living that she is living, prior to ED arrival patient had a witnessed hematemesis, due to dementia patient does not provide much history when asked why she is in ED she states she is here for right fracture, when asked if she remembers that she had an episode of hematemesis she states yes, she denies any abdominal pain, nausea, vomiting, diarrhea, constipation, chest pain, shortness of breath. In ED she was noted to have leukocytosis with hemoglobin of 8.7, stool guaiac positive, elevated potassium and liver chemistries, UA negative Covid negative. Hospitalist consulted for admission. 02/13/2020. Saw patient this morning, noted to be very somnolent and lethargic, easily arousable but falls back to sleep, does not answer any questions, noted to have labored breathing and tachypnea, as per primary nurse patient has not had any bowel movement or repeat hematemesis since yesterday. Unfortunately repeat labs have been done due to no access even the they have tried several times, patient is pending a PICC line placement, CT abdomen shows hepatic cirrhosis with small amount of ascites, mild thickening likely reactive related to cirrhosis. Patient patient's son who is in the room updated about patient's status, inquired about CODE STATUS, is stating that his mother used to be DNR but last year he revoked it, when I mentioned to him that on the paperwork from [facility] says that she is DNR, he is saying that probably they are not updated, he wants CODE STATUS to remain DNR until he discusses it with his 2 other siblings. 02/14/2020. Yesterday while in 4th floor patient was noted to be getting more confused, had removed her NG tube, no labs were available in the morning as patient had lost her venous access and repeated attempt to get venous access were unsuccessful, after placing PICC line labs were obtained which showed severe hyperkalemia, severe metabolic acidosis, elevated liver enzymes, evaded INR, elevated ammonia level, elevated proBNP and worsening leukocytosis, she also noted to be becoming more hypotensive and hypoglycemic. Patient was immediately transferred to [facility] where she was a started on D10 NS, and given bicarbonate pushes, repeat labs showed improvement of hyperkalemia and metabolic acidosis however patient still remained hypotensive, tachycardic and altered. As patient had already removed NG tube and the fact that she had cirrhosis reinsertion of NG tube was not reattempted to avoid any perforation. Patient received given rectal lactulose instead to lower her ammonia however she had a melanotic bowel movement and lactulose enema was aborted. I was also notified by primary nurse that the family had decided on continuing with DNR status. Of note patient was under hospice care but it was revoked by the family on the day of admission so they could bring her to the hospital. Patient was becoming more hypotensive due to severe volume overload was not a candidate for volume resuscitation. She was placed on dopamine drip to keep up her pressure and hopefully she can be diuresed overnight, but unfortunately overnight patient went into atrial fibrillation and had to be started on Cardizem drip and dopamine was stopped by the telephone operator chief. Before leaving yesterday also placed standing order for every 4 BMP and left doctor to nurse communication order to give 50 mEq of bicarbonate if potassium still remained above 5 or patient was in metabolic acidosis. On the morning labs patient was noted to have INR of 10.97 up from 6.16, with worsening renal function and ammonia level, patient was given a dose of vitamin K and FFP ordered, cortisol a.m. by telephone operator chief. Her morning cortisol was also checked came back 69.6. This morning patient noted to be very obtunded and hypotensive, and on physical examination wincing when her abdomen is palpated. I did not reattempt to give her lactulose enema again to avoid possible bowel perforation as patient had melanotic bowel movement after lactulose enema was attempted the day before, and also patient noted to be tender (wincing) upon abdominal palpation. CT abdomen on admission also was positive for possible colitis. This morning I talked to his son Asim and updated him about her poor prognosis, Mr. Dailey asked me to give him time to talk to his other two others siblings. I was called and the patient strongly about 1 hour later by Mr. Dailey who notified me that he had talked to his brother and sister and they have all decided to transition patient care to NURSERY SCHOOL TEACHER only. Patient's CODE STATUS was switched to NURSERY SCHOOL TEACHER as per family's request. Reason For Visit: UPPER GI BLEED Physical Exam Vital Signs: Temp Pulse Resp BP Pulse Ox 97.3 F 81 33 H 82/41 L 96 02/14/20 10:00 02/14/20 14:00 02/13/20 12:00 02/14/20 10:45 02/14/20 03:26 Intake & Output 02/13/20 02/14/20 02/15/20 06:59 06:59 06:59 Intake Total 1650 340 0 Output Total 900 450 0 Balance 750 -110 0 Weight 62.2 kg 63.1 kg Results Laboratory Results: 02/14/20 04:15 02/14/20 04:15 02/13/20 02/13/20 02/13/20 14:25 17:00 18:20 WBC RBC Hgb Hct MCV MCH MCHC RDW Plt Count Seg Neutrophils % Carbonic Acid 0.58 L HCO3/H2CO3 Ratio 22:1 ABG pH 7.44 ABG pCO2 19.4 L* ABG pO2 131.3 H ABG HCO3 13.0 L ABG O2 Saturation 98.8 H ABG Base Excess -8.4 FiO2 2L Sodium 134.6 L Potassium 5.7 H Chloride 100 Carbon Dioxide 14 L Anion Gap 21 H BUN 37 H Creatinine 1.41 H Est GFR ( Amer) 42 L Glucose 370 H Calcium 7.6 L AST 4534 H Ammonia 02/13/20 02/14/20 02/14/20 22:40 02:20 04:15 WBC RBC Hgb Hct MCV MCH MCHC RDW Plt Count Seg Neutrophils % Carbonic Acid HCO3/H2CO3 Ratio ABG pH ABG pCO2 ABG pO2 ABG HCO3 ABG O2 Saturation ABG Base Excess FiO2 Sodium 139.7 142.5 142.7 Potassium 5.3 H 5.1 H 5.1 H Chloride 103 104 106 Carbon Dioxide 18 L 20 L 20 L Anion Gap 19 19 17 BUN 41 H 42 H 42 H Creatinine 1.53 H 1.49 H 1.68 H Est GFR ( Amer) 39 L 40 L 35 L Glucose 149 H 153 H 147 H Calcium 8.2 L 8.3 L 7.8 L AST Ammonia 02/14/20 02/14/20 04:15 04:15 WBC 18.4 H RBC 2.40 L Hgb 8.0 L D Hct 24.1 L MCV 101 H MCH 33.2 MCHC 33.0 RDW 19.5 H Plt Count 93 L Seg Neutrophils % Not Reportable Carbonic Acid HCO3/H2CO3 Ratio ABG pH ABG pCO2 ABG pO2 ABG HCO3 ABG O2 Saturation ABG Base Excess FiO2 Sodium Potassium Chloride Carbon Dioxide Anion Gap BUN Creatinine Est GFR ( Amer) Glucose Calcium AST Ammonia 77.9 H 02/13/20 14:25 NT-Pro-B Natriuret Pep 3150 H Impressions: KUB X-Ray 02/12/20 00:00 IMPRESSION: NG tube as described. Abdomen/Pelvis CT 02/12/20 15:45 IMPRESSION: 1. Interval development of a mild compression deformity at the superior endplate of T11 NA moderate compression fracture at L5 since prior examination. Findings are technically age indeterminate and may represent chronic or acute fractures. Clinical correlation for patient's pain recommended. 2. Shrunken nodular contour of the liver suggestive of hepatic cirrhosis. Clinical correlation. 3. Small amount of ascites. 4. Diffuse subcutaneous edema suggestive of fluid overload. 5. Colon wall thickening is likely reactive related to cirrhosis. Cannot entirely exclude colitis. Clinical correlation. 6. Cholelithiasis. No CT evidence of acute cholecystitis. PICC Line Insertion 02/13/20 00:00 IMPRESSION: SUCCESSFUL PLACEMENT OF A 5 FR DUAL LUMEN 44 CM PICC IN THE RIGHT BRACHYCEPHALIC VEIN. Assessment and Plan - Diagnosis (1) Comfort measures only status Is this a current diagnosis for this admission?: Yes Plan: As of 02/14/2020 patient is status has been transitioned to comfort measures only. 02/14/2020. Yesterday while in 4th floor patient was noted to be getting more confused, had removed her NG tube, no labs were available in the morning as patient had lost her venous access and repeated attempt to get venous access were unsuccessful, after placing PICC line labs were obtained which showed severe hyperkalemia, severe metabolic acidosis, elevated liver enzymes, evaded INR, elevated ammonia level, elevated proBNP and worsening leukocytosis, she also noted to be becoming more hypotensive and hypoglycemic. Patient was immediately transferred to [facility] where she was a started on D10 NS, and given bicarbonate pushes, repeat labs showed improvement of hyperkalemia and metabolic acidosis however patient still remained hypotensive, tachycardic and altered. As patient had already removed NG tube and the fact that she had cirrhosis reinsertion of NG tube was not reattempted to avoid any perforation. Patient received given rectal lactulose instead to lower her ammonia however she had a melanotic bowel movement and lactulose enema was aborted. I was also notified by primary nurse that the family had decided on continuing with DNR status. Of note patient was under hospice care but it was revoked by the family on the day of admission so they could bring her to the hospital. Patient was becoming more hypotensive due to severe volume overload was not a candidate for volume resuscitation. She was placed on dopamine drip to keep up her pressure and hopefully she can be diuresed overnight, but unfortunately overnight patient went into atrial fibrillation and had to be started on Cardizem drip and dopamine was stopped by the telephone operator chief. Before leaving yesterday also placed standing order for every 4 BMP and left doctor to nurse communication order to give 50 mEq of bicarbonate if potassium still remained above 5 or patient was in metabolic acidosis. On the morning labs patient was noted to have INR of 10.97 up from 6.16, with worsening renal function and ammonia level, patient was given a dose of vitamin K and FFP ordered, cortisol a.m. by telephone operator chief. Her morning cortisol was also checked came back 69.6. This morning patient noted to be very obtunded and hypotensive, and on physical examination wincing when her abdomen is palpated. I did not reattempt to give her lactulose enema again to avoid possible bowel perforation as patient had melanotic bowel movement after lactulose enema was attempted the day before, and also patient noted to be tender (wincing) upon abdominal palpation. CT abdomen on admission also was positive for possible colitis. This morning I talked to his son Asim and updated him about her poor prognosis, Mr. Dailey asked me to give him time to talk to his other two others siblings. I was called and the patient strongly about 1 hour later by Mr. Dailey who notified me that he had talked to his brother and sister and they have all decided to tr ansition patient care to NURSERY SCHOOL TEACHER only. Patient's CODE STATUS was switched to NURSERY SCHOOL TEACHER as per family's request. (2) Acute liver failure Qualifiers: Hepatic coma status: with hepatic coma Qualified Code(s): K72.01 - Acute and subacute hepatic failure with coma Is this a current diagnosis for this admission?: Yes Plan: Patient becoming more altered. Worsening liver function. Extremely elevated liver chemistries, elevated PT/INR, low platelets, elevated ammonia level. No history of cirrhosis or EtOH abuse as per son. Presented with elevated PT/INR, elevated liver chemistries and direct hyper bilirubinemia. Chart review shows persistent ALT and alkaline phosphatase elevation and low albumin from previous admissions. Hip replacement 02/04/2021. CT abdomen shows mild ascites and hepatic cirrhosis. Home medications are acetaminophen and aspirin 325. Aspirin level WNL. Acetaminophen level WNL. Not sure if acetaminophen or aspirin are the cause of this liver failure. Patient is currently NURSERY SCHOOL TEACHER status. (3) Acute GI bleeding Is this a current diagnosis for this admission?: Yes Plan: No bowel movement since admission. Unfortunately no repeat labs have been obtained due to unsuccessful venous acces s. Most likely upper GI bleed. Likely due to NSAIDs. Was recently discharged on aspirin 325 for DVT prophylaxis after was hospitalized for right hip fracture. Status post 2 PRBC transfusion. Monitor H&H, Protonix drip, supportive transfusion, keep hemoglobin above 9 given history of CAD. Surgery consulted. No intervention planned at this point. (4) Acute anemia Is this a current diagnosis for this admission?: Yes Plan: Acute blood loss anemia. Plan as per #1. (5) Congestive heart failure (CHF) Qualifiers: Heart failure type: systolic Heart failure chronicity: chronic Qualified Code(s): I50.22 - Chronic systolic (congestive) heart failure Is this a current diagnosis for this admission?: Yes Plan: Volume overloaded. SPO2 WNL on RA. Tachypneic and labored breathing. Positive fluid balance. Patient is status post 2 L of NS transfusion on admission and 2 PRBC transfusion. Strict in and out, fluid restriction, IV Lasix, ZEB, daily weight, cardiac diet. (6) Dementia Is this a current diagnosis for this admission?: Yes (7) Diabetes mellitus Qualifiers: Is this a current diagnosis for this admission?: Yes (8) Hypertension Qualifiers: Is this a current diagnosis for this admission?: Yes (9) Hyperkalemia Is this a current diagnosis for this admission?: Yes (10) Metabolic encephalopathy Is this a current diagnosis for this admission?: Yes - Time Time Spent with patient: 35 or more minutes Anticipated Discharge Disposition: Hospice Center Anticipated Discharge Timeframe: when bed available
[2020-02-14] MEDS ORDERED: MORPHINE SULFATE 10 MG/ML INJ IV PRN (16:02)
[2020-02-14] MEDS ORDERED: LORAZEPAM INJ 2 MG/1 ML VIAL IV PRN ×2 (16:02→16:04)
--- NOTE | 2020-02-14 22:04 | EKG REPORT ---
SEVERITY:- ABNORMAL ECG - ATRIAL FIBRILLATION LEFT AXIS DEVIATION CONSIDER ANTEROSEPTAL INFARCT : Confirmed by: Dotty Ortiz 14-Feb-2020 22:04:26
--- NOTE | 2020-02-17 16:07 | Death Summary ---
Summary Date : 02/15/20 Autopsy: No Resuscitation Status: Chemical Code Only - Final Diagnosis (1) Comfort measures only status Is this a current diagnosis for this admission?: Yes (2) Acute liver failure Is this a current diagnosis for this admission?: Yes (3) Acute GI bleeding Is this a current diagnosis for this admission?: Yes (4) Acute anemia Is this a current diagnosis for this admission?: Yes (5) Congestive heart failure (CHF) Is this a current diagnosis for this admission?: Yes (6) Dementia Is this a current diagnosis for this admission?: Yes (7) Diabetes mellitus Is this a current diagnosis for this admission?: Yes (8) Hypertension Is this a current diagnosis for this admission?: Yes (9) Hyperkalemia Is this a current diagnosis for this admission?: Yes (10) Metabolic encephalopathy Is this a current diagnosis for this admission?: Yes Hospital Course:: KAYLENE BENDER is a 89 year old female past medical history of CHF, hypertension, hyperlipidemia, diabetes, dementia, resident of [facility] who was recently hospitalized at [facility] on 02/04/2020 and discharged on 02/07/2020 for right hip fracture after she underwent right hemiarthroplasty, patient was discharged home on aspirin 325 daily for DVT prophylaxis for 6 weeks given history of recent right hip fracture, pain is brought to ED after being observed to have some dried blood at the corner of her mouth at the assisted living that she is living, prior to ED arrival patient had a witnessed hematemesis, due to dementia patient does not provide much history when asked why she is in ED she states she is here for right fracture, when asked if she remembers that she had an episode of hematemesis she states yes, she denies any abdominal pain, nausea, vomiting, diarrhea, constipation, chest pain, shortness of breath. In ED she was noted to have leukocytosis with hemoglobin of 8.7, stool guaiac positive, elevated potassium and liver chemistries, UA negative Covid negative. Hospitalist consulted for admission. 02/14/2020. Yesterday while in 4th floor patient was noted to be getting more confused, had removed her NG tube, no labs were available in the morning as patient had lost her venous access and repeated attempt to get venous access were unsuccessful, after placing PICC line labs were obtained which showed severe hyperkalemia, severe metabolic acidosis, elevated liver enzymes, evaded INR, elevated ammonia level, elevated proBNP and worsening leukocytosis, she also noted to be becoming more hypotensive and hypoglycemic. Patient was immediately transferred to [facility] where she was a started on D10 NS, and given bicarbonate pushes, repeat labs showed improvement of hyperkalemia and metabolic acidosis however patient still remained hypotensive, tachycardic and altered. As patient had already removed NG tube and the fact that she had cirrhosis reinsertion of NG tube was not reattempted to avoid any perforation. Patient received given rectal lactulose instead to lower her ammonia however she had a melanotic bowel movement and lactulose enema was aborted. I was also notified by primary nurse that the family had decided on continuing with DNR status. Of note patient was under hospice care but it was revoked by the family on the day of admission so they could bring her to the hospital. Patient was becoming more hypotensive due to severe volume overload was not a candidate for volume resuscitation. She was placed on dopamine drip to keep up her pressure and hopefully she can be diuresed overnight, but unfortunately overnight patient went into atrial fibrillation and had to be started on Cardizem drip and dopamine was stopped by the steward/stewardess second. Before leaving yesterday also placed standing order for every 4 BMP and left doctor to nurse communication order to give 50 mEq of bicarbonate if potassium still remained above 5 or patient was in metabolic acidosis. On the morning labs patient was noted to have INR of 10.97 up from 6.16, with worsening renal function and ammonia level, patient was given a dose of vitamin K and FFP ordered, cortisol a.m. by steward/stewardess second. Her morning cortisol was also checked came back 69.6. This morning patient noted to be very obtunded and hypotensive, and on physical examination wincing when her abdomen is palpated. I did not reattempt to give her lactulose enema again to avoid possible bowel perforation as patient had melanotic bowel movement after lactulose enema was attempted the day before, and also patient noted to be tender (wincing) upon abdominal palpation. CT abdomen on admission also was positive for possible colitis. This morning I talked to his son Asim and updated him about her poor prognosis, Mr. Dailey asked me to give him time to talk to his other two others siblings. I was called and the patient strongly about 1 hour later by Mr. Dailey who notified me that he had talked to his brother and sister and they have all decided to transition patient care to EMULSIFICATION OPERATOR only. Patient's CODE STATUS was switched to EMULSIFICATION OPERATOR as per family's request.
== END 2020-02-15 00:33 | disposition expired | DRG 377 ==
LOC: ER 04:10 → EH 14:05 → 4N 20:57 → 5 02-13 16:09
PROVIDERS: ADMIT Internal Medicine; ATTEND Internal Medicine
PROC: 30233N1 Transfusion of Nonautologous Red Blood Cells into Peripheral Vein, Percutaneous Approach (ICD-10-PCS; 2020-02-12)
PROC: 02HV33Z Insertion of Infusion Device into Superior Vena Cava, Percutaneous Approach (ICD-10-PCS; principal; 2020-02-13)
PROC: B548ZZA Ultrasonography of Superior Vena Cava, Guidance (ICD-10-PCS; 2020-02-13)
PROC: 30233N1 Transfusion of Nonautologous Red Blood Cells into Peripheral Vein, Percutaneous Approach (ICD-10-PCS; 2020-02-13)
DX: K92.0 Hematemesis (principal); K72.00 Acute and subacute hepatic failure without coma; G93.41 Metabolic encephalopathy; E87.2 Acidosis; D62 Acute posthemorrhagic anemia; I50.22 Chronic systolic (congestive) heart failure; I11.0 Hypertensive heart disease with heart failure; F03.90 Unspecified dementia, unspecified severity, without behavioral disturbance, psychotic disturbance, mood disturbance, and anxiety; E78.00 Pure hypercholesterolemia, unspecified; I48.91 Unspecified atrial fibrillation; J45.909 Unspecified asthma, uncomplicated; E11.9 Type 2 diabetes mellitus without complications; K21.9 Gastro-esophageal reflux disease without esophagitis; M19.90 Unspecified osteoarthritis, unspecified site; E80.7 Disorder of bilirubin metabolism, unspecified; R60.9 Edema, unspecified; Z51.5 Encounter for palliative care; E87.5 Hyperkalemia; E78.5 Hyperlipidemia, unspecified; Z88.8 Allergy status to other drugs, medicaments and biological substances; Z88.2 Allergy status to sulfonamides; Z88.6 Allergy status to analgesic agent; Z20.828 Contact with and (suspected) exposure to other viral communicable diseases; Z66 Do not resuscitate; Z96.641 Presence of right artificial hip joint
CPT/HCPCS: 0202U; 36415; 36430; 36573; 74018; 74177; 80048; 80053; 80074; 80307; 81001; 82088; 82140; 82270; 82533; 82803; 82962; 83735; 83880; 84100; 84244; 85025; 85610; 85730; 86850; 86900; 86901; 86920; 87040; 93005; 93010; 94660; 96365; 96366; 96375; 99285; C1769; C9113; J0610; J0692; J0696; J1265; J1642; J1940; J2405; J2550; J3430; J3490; J7030; J7040; P9016; P9047